=== PATIENT | male | born 1950 | race Caucasian/White ===

== ENCOUNTER 2022-08-18 11:57 | Emergency (ER) | payer MEDICARE, OTHER ==
[2022-08-18 12:02] VITALS: RESP 18; TEMP 97.6
[2022-08-18] MEDS ORDERED: SODIUM CHLORIDE 0.9% 500 ML 500 ML IV STA (12:19)
[2022-08-18] MEDS ORDERED: HYDROmorphone 1 MG/ML 1 ML SYRINGE IVP STA (12:19)
--- NOTE | 2022-08-18 12:22 | ED ---
General Adult HPI - General Chief complaint: Abdominal Pain Stated complaint: R Side Pain Time Seen by Provider: 08/18/22 12:04 Source: patient, RN notes reviewed, old records reviewed Mode of arrival: ambulatory Limitations: no limitations - History of Present Illness Initial comments: 72-year-old male presenting for reevaluation of right-sided abdominal pain. Patient states he's had pain for approximately 2 years. He denies vomiting. Denies fever. Denies chest pain. He's had a previous cholecystectomy and previous appendectomy. No hematuria or dysuria. - Related Data Home Medications Medication Instructions Recorded Confirmed Atorvastatin [Lipitor] 40 mg PO DAILY 08/16/22 08/16/22 Benzonatate [Tessalon Perle] 200 mg PO TID PRN 08/16/22 08/16/22 Dapagliflozin Propanediol [Farxiga] 5 mg PO DIRECTED 08/16/22 08/16/22 Furosemide [Lasix] 80 mg PO DAILY 08/16/22 08/16/22 Losartan [Cozaar] 50 mg PO DAILY 08/16/22 08/16/22 Metoprolol Succinate [Toprol XL] 50 mg PO DAILY 08/16/22 08/16/22 Nitroglycerin Sl Tabs [Nitrostat] 0.4 mg SL Q5M PRN 08/16/22 08/16/22 Pantoprazole [Protonix] 40 mg PO DAILY 08/16/22 08/16/22 amLODIPine [Norvasc] 10 mg PO DAILY 08/16/22 08/16/22 oxyCODONE-APAP 10-325MG [Percocet 1 tab PO Q4H PRN 08/16/22 08/16/22 10-325 mg] tadalafiL 10 mg PO DAILY PRN 08/16/22 08/16/22 Previous Rx's Medication Instructions Recorded Amoxic-Pot Clav 875-125Mg 1 tab PO BID 1 Days #20 tab 08/16/22 [Augmentin 875-125] Fluticasone Nasal Bend [Flonase 2 spr EA NOSTRIL DAILY #16 gm 08/16/22 Nasal Bend] Allergies Allergy/AdvReac Type Severity Reaction Status Date / Time cephalexin [From Keflex] AdvReac Nausea & Verified 08/16/22 19:38 Vomiting & Diarrhea Review of Systems ROS Statement: Those systems with pertinent positive or pertinent negative responses have been documented in the HPI. ROS Other: All systems not noted in ROS Statement are negative. Past Medical History Past Medical History: Diabetes Mellitus, Hyperlipidemia, Hypertension Additional Past Medical History / Comment(s): [place] Palsy History of Any Multi-Drug Resistant Organisms: None Reported Past Surgical History: Appendectomy, Cholecystectomy, Heart Catheterization With Stent Past Psychological History: No Psychological Hx Reported Smoking Status: Current every day smoker Past Alcohol Use History: None Reported Past Drug Use History: None Reported General Exam Limitations: no limitations General appearance: alert, in no apparent distress Head exam: Present: atraumatic, normocephalic Eye exam: Present: normal appearance, PERRL ENT exam: Present: normal exam Neck exam: Present: normal inspection. Absent: tenderness, meningismus Respiratory exam: Present: normal lung sounds bilaterally. Absent: respiratory distress, wheezes Cardiovascular Exam: Present: regular rate, normal rhythm GI/Abdominal exam: Present: tenderness. Absent: distended Extremities exam: Present: normal inspection, normal capillary refill Neurological exam: Present: alert, oriented X3, CN II-XII intact. Absent: motor sensory deficit Psychiatric exam: Present: normal affect, normal mood Skin exam: Present: warm, dry, intact. Absent: cyanosis, diaphoretic Course Vital Signs 08/18/22 08/18/22 11:58 13:08 Temperature 97.6 F Pulse Rate 70 53 L Respiratory 18 18 Rate Blood Pressure 210/109 181/97 O2 Sat by Pulse 93 L 98 Oximetry EKG Findings - EKG Comments: EKG Findings:: EKG: Sinus rhythm, left ventricular hypertrophy rate is 60, MI interval 144, QRS duration 126, QTC 463 T-wave inversion in the inferior leads and lateral precordial leads. No old for comparison - EKG Results: EKG: interpreted by ERMD Medical Decision Making - Medical Decision Making Was pt. sent in by a medical professional or institution (, PA, EMERGENCY RESPONSE COORDINATOR, urgent care, hospital, or [facility]...) When possible be specific @ -No Did you speak to anyone other than the patient for history (EMS, parent, family, police, friend...)? What history was obtained from this source @ -No Did you review nursing and triage notes (agree or disagree)? Why? @ -I reviewed and agree with nursing and triage notes Were old charts reviewed (outside hosp., previous admission, EMS record, old EKG, old radiological studies, urgent care reports/EKG's, [facility] records)? Report findings @ -Computed tomography scan from 2 days prior Differential Diagnosis (chest pain, altered mental status, abdominal pain women, abdominal pain men, vaginal bleeding, weakness, fever, dyspnea, syncope, headache, dizziness, GI bleed, back pain, seizure, CVA, palpatations, mental health, musculoskeletal)? @ -not applicable EKG interpreted by me (3pts min.). @ -As above X-rays interpreted by me (1pt min.). @ Nonobstructive, no free air CT interpreted by me (1pt min.). @ -None done U/S interpreted by me (1pt. min.). @ -None done What testing was considered but not performed or refused? (CT, X-rays, U/S, labs)? Why? @ -None What meds were considered but not given or refused? Why? @ -None Did you discuss the management of the patient with other professionals (professionals i.e. , PA, EMERGENCY RESPONSE COORDINATOR, lab, RT, psych nurse, social services director, handwriting expert, teacher, staff combat information center officer, shoe caser)? Give summary @ -No Was smoking cessation discussed for >3mins.? @ -No Was critical care preformed (if so, how long)? @ -No Were there social determinants of health that impacted care today? How? (Homelessness, low income, unemployed, alcoholism, drug addiction, transportation, low edu. Level, literacy, decrease access to med. care, correction, rehab)? @ -No Was there de-escalation of care discussed even if they declined (Discuss DNR or withdrawal of care, Hospice)? DNR status @ -No What co-morbidities impacted this encounter? (DM, HTN, Smoking, COPD, CAD, Cancer, CVA, ARF, Chemo, Hep., AIDS, mental health diagnosis, sleep apnea, morbid obesity)? @ Retention, diabetes, chronic pain Was patient admitted / discharged? Hospital course, mention meds given and route, prescriptions, significant lab abnormalities, going to OR and other pertinent info. @ 72-year-old male with 2 years of right-sided abdominal pain. Patient has been seen by multiple providers including surgery. He states the pain is unchanged without new features today. He is taking Percocet for pain at home. He has evaluation and computed tomography scan in the emergency department 2 days prior which showed chronic findings without any acute explanation of his pain. I did reevaluate the patient after initial medication he states he was somewhat improved. I did confirm that this pain is been present for 2 years. He has a nonobstructive x-ray, essentially normal laboratory testing including CBC, CMP, urinalysis. He states he has pain medication at home. He is in structed to follow-up with his primary care physician and return with worsening or changing symptoms. Undiagnosed new problem with uncertain prognosis? @ -No Drug Therapy requiring intensive monitoring for toxicity (Heparin, Nitro, Insulin, Cardizem)? @ -No Were any procedures done? @ -No Diagnosis/symptom? @ Abdominal pain Acute, or Chronic, or Acute on Chronic? @Chronic Uncomplicated (without systemic symptoms) or Complicated (systemic symptoms)? @ Complicated Side effects of treatment? @ -No Exacerbation, Progression, or Severe Exacerbation? @ -No Poses a threat to life or bodily function? How? (Chest pain, [place], [place], pneumonia, PE, COPD, DKA, ARF, appy, cholecystitis, CVA, Diverticulitis, Homicidal, Suicidal, threat to staff... and all critical care pts) @ -No - Lab Data Result diagrams: 08/18/22 12:53 08/18/22 12:53 Lab Results 08/18/22 08/18/22 08/18/22 Range/Units 12:53 12:53 12:53 WBC 7.9 (3.8-10.6) k/uL RBC 5.11 (4.30-5.90) m/uL Hgb 15.0 (13.0-17.5) gm/dL Hct 45.0 (39.0-53.0) % MCV 88.1 (80.0-100.0) fL MCH 29.4 (25.0-35.0) pg MCHC 33.4 (31.0-37.0) g/dL RDW 14.2 (11.5-15.5) % Plt Count 165 (150-450) k/uL MPV 8.4 Neutrophils % 62 % Lymphocytes % 26 % Monocytes % 9 % Eosinophils % 1 % Basophils % 0 % Neutrophils # 4.9 (1.3-7.7) k/uL Lymphocytes # 2.1 (1.0-4.8) k/uL Monocytes # 0.7 (0-1.0) k/uL Eosinophils # 0.1 (0-0.7) k/uL Basophils # 0.0 (0-0.2) k/uL PT 10.9 (9.0-12.0) sec INR 1.0 (<1.2) APTT 22.3 (22.0-30.0) sec Sodium (137-145) mmol/L Potassium (3.5-5.1) mmol/L Chloride (98-107) mmol/L Carbon Dioxide (22-30) mmol/L Anion Gap mmol/L BUN (9-20) mg/dL Creatinine (0.66-1.25) mg/dL Est GFR (CKD-EPI)AfAm (>60 ml/min/1.73 sqM) Est GFR (CKD-EPI)NonAf (>60 ml/min/1.73 sqM) Glucose (74-99) mg/dL Plasma Lactic Acid Tomás (0.7-2.0) mmol/L Calcium (8.4-10.2) mg/dL Total Bilirubin (0.2-1.3) mg/dL AST (17-59) U/L ALT (4-49) U/L Alkaline Phosphatase (38-126) U/L Total Protein (6.3-8.2) g/dL Albumin (3.5-5.0) g/dL Amylase (30-110) U/L Lipase (23-300) U/L Urine Color Yellow Urine Appearance Clear (Clear) Urine pH 6.5 (5.0-8.0) Ur Specific [place] 1.013 (1.001-1.035) Urine Protein 1+ H (Negative) Urine Glucose (UA) 2+ H (Negative) Urine Ketones Negative (Negative) Urine Blood Negative (Negative) Urine Nitrite Negative (Negative) Urine Bilirubin Negative (Negative) Urine Urobilinogen <2.0 (<2.0) mg/dL Ur Leukocyte Esterase Negative (Negative) Urine RBC <1 (0-5) /hpf Urine WBC <1 (0-5) /hpf Urine Mucus Rare H (None) /hpf 08/18/22 08/18/22 Range/Units 12:53 12:53 WBC (3.8-10.6) k/uL RBC (4.30-5.90) m/uL Hgb (13.0-17.5) gm/dL Hct (39.0-53.0) % MCV (80.0-100.0) fL MCH (25.0-35.0) pg MCHC (31.0-37.0) g/dL RDW (11.5-15.5) % Plt Count (150-450) k/uL MPV Neutrophils % % Lymphocytes % % Monocytes % % Eosinophils % % Basophils % % Neutrophils # (1.3-7.7) k/uL Lymphocytes # (1.0-4.8) k/uL Monocytes # (0-1.0) k/uL Eosinophils # (0-0.7) k/uL Basophils # (0-0.2) k/uL PT (9.0-12.0) sec INR (<1.2) APTT (22.0-30.0) sec Sodium 139 (137-145) mmol/L Potassium 3.4 L (3.5-5.1) mmol/L Chloride 103 (98-107) mmol/L Carbon Dioxide 25 (22-30) mmol/L Anion Gap 11 mmol/L BUN 23 H (9-20) mg/dL Creatinine 1.16 (0.66-1.25) mg/dL Est GFR (CKD-EPI)AfAm 72 (>60 ml/min/1.73 sqM) Est GFR (CKD-EPI)NonAf 63 (>60 ml/min/1.73 sqM) Glucose 137 H (74-99) mg/dL Plasma Lactic Acid Tomás 1.3 (0.7-2.0) mmol/L Calcium 9.0 (8.4-10.2) mg/dL Total Bilirubin 1.0 (0.2-1.3) mg/dL AST 32 (17-59) U/L ALT 35 (4-49) U/L Alkaline Phosphatase 98 (38-126) U/L Total Protein 7.0 (6.3-8.2) g/dL Albumin 4.2 (3.5-5.0) g/dL Amylase 33 (30-110) U/L Lipase 47 (23-300) U/L Urine Color Urine Appearance (Clear) Urine pH (5.0-8.0) Ur Specific [place] (1.001-1.035) Urine Protein (Negative) Urine Glucose (UA) (Negative) Urine Ketones (Negative) Urine Blood (Negative) Urine Nitrite (Negative) Urine Bilirubin (Negative) Urine Urobilinogen (<2.0) mg/dL Ur Leukocyte Esterase (Negative) Urine RBC (0-5) /hpf Urine WBC (0-5) /hpf Urine Mucus (None) /hpf Disposition Clinical Impression: Abdominal pain Disposition: HOME SELF-CARE Condition: Fair Instructions (If sedation given, give patient instructions): Abdominal Pain (ED) Is patient prescribed a controlled substance at d/c from ED?: No Referrals: Matt Santoyo DO [Primary Care Provider] - 1-2 days Time of Disposition: 15:14
--- NOTE | 2022-08-18 12:47 | XR ---
EXAMINATION TYPE: XR KUB DATE OF EXAM: 08/18/2022 12:37 PM INDICATION: Patient age:Male; 72 years old; Reason for study: abdominal pain; COMPARISON: 08/16/2022 TECHNIQUE: One radiographic view of the abdomen was obtained. FINDINGS: The bowel gas pattern is nonspecific without dilated loops of small or large bowel. There i s no evidence for organomegaly or pneumoperitoneum. The osseous structures are intact. No abnormal calcifications are present. Fecal material and gas are demonstrated throughout the colon and rectum. Right upper quadrant cholecystectomy clips. IMPRESSION: Nonspecific bowel gas pattern without radiographic evidence for acute process.
[2022-08-18 13:10] VITALS: BP 181/97; PULSE 53
[2022-08-18 13:16] LABS: Basophils % (A) 0 %; Eosinophils # (A) 0.1 k/uL (0-0.7); Eosinophils % (A) 1 %; Lymphocytes # (A) 2.1 k/uL (1.0-4.8); Lymphocytes % (A) 26 %; MCH 29.4 pg (25.0-35.0); MCHC 33.4 g/dL (31.0-37.0); MCV 88.1 fL (80.0-100.0); Mean Platelet Volume 8.4; Monocytes # (A) 0.7 k/uL (0-1.0); Monocytes % (A) 9 %; Neutrophils # (A) 4.9 k/uL (1.3-7.7); Neutrophils % (A) 62 %; Platelet Count 165 k/uL (150-450); RBC 5.11 m/uL (4.30-5.90); RDW 14.2 % (11.5-15.5); WBC 7.9 k/uL (3.8-10.6)
[2022-08-18 13:33] LABS: Albumin 4.2 g/dL (3.5-5.0); Potassium 3.4 mmol/L (3.5-5.1)
[2022-08-18 13:39] LABS: Partial Thromboplastin Time 22.3 sec (22.0-30.0); Prothrombin Time 10.9 sec (9.0-12.0)
[2022-08-18 14:58] LABS: Appearance,Urine Clear (Clear); Bilirubin,Urine Negative (Negative); Blood,Urine Negative (Negative); Color,Urine Yellow; Glucose,Urine (UA) 2+ (Negative); Ketones,Urine Negative (Negative); Leukocyte Esterase,Urine Negative (Negative); Mucus,Urine Rare /hpf; Nitrite,Urine Negative (Negative); PH, Urine 6.5 (5.0-8.0); Protein,Urine 1+ (Negative); RBC,Urine <1 /hpf (0-5); Specific Gravity,Urine 1.013 (1.001-1.035); Urobilinogen,Urine <2.0 mg/dL (<2.0); WBC,Urine <1 /hpf (0-5)
== END 2022-08-18 15:40 | disposition home or self-care (01) ==
LOC: EC 11:57
DX: R10.9 Unspecified abdominal pain (principal); I10 Essential (primary) hypertension; E11.9 Type 2 diabetes mellitus without complications; E78.5 Hyperlipidemia, unspecified; F17.200 Nicotine dependence, unspecified, uncomplicated; Z79.84 Long term (current) use of oral hypoglycemic drugs; Z79.899 Other long term (current) drug therapy; Z88.1 Allergy status to other antibiotic agents; Z90.49 Acquired absence of other specified parts of digestive tract
CPT/HCPCS: 36415; 93005; 80053; 82150; 83605; 83690; 85025; 85610; 85730; 81001; 74018; 99284; 96374; 96361; J1170

== ENCOUNTER 2024-09-23 11:53 | Inpatient (IN) | payer MEDICARE ==
[2024-09-23 12:32] LABS: Basophils # (A) 0.04 10*3/uL (0.00-0.10); Basophils % (A) 0.2 %; Eosinophils # (A) 0.03 10*3/uL (0.04-0.35); Eosinophils % (A) 0.2 %; HCT 40.8 % (39.6-50.0); HGB 13.4 g/dL (13.0-17.0); Lymphocytes # (A) 1.32 10*3/uL (0.90-5.00); MCH 28.1 pg (27.0-32.0); MCHC 32.8 g/dL (32.0-37.0); MCV 85.5 fL (80.0-97.0); Mean Platelet Volume 10.7 fL (9.5-12.2); Monocytes # (A) 2.05 10*3/uL (0.20-1.00); Monocytes % (A) 12.5 %; Neutrophils % (A) 77.2 %; Platelet Count 327 10*3/uL (140-440); RBC 4.77 10*6/uL (4.40-5.60); RDW 15.2 % (11.5-14.5); WBC 16.45 10*3/uL (4.50-10.00)
[2024-09-23 12:44] LABS: AST 21 U/L (17-59); African American GFR (CKD) 38 (>60 ml/min/1.73 sqM); Albumin 3.2 g/dL (3.5-5.0); Alkaline Phosphatase 98 U/L (38-126); Amylase 38 U/L (30-110); Anion Gap 16 mmol/L; Blood Urea Nitrogen 54 mg/dL (9-20); Calcium 9.1 mg/dL (8.4-10.2); Carbon Dioxide 25 mmol/L (22-30); Chloride 93 mmol/L (98-107); Glucose 161 mg/dL (74-99); Lipase 89 U/L (23-300); Non-African American GFR(CKD) 33 (>60 ml/min/1.73 sqM); Potassium 4.3 mmol/L (3.5-5.1); Sodium 134 mmol/L (137-145)
[2024-09-23 12:53] LABS: ALT 17 U/L (4-49)
--- NOTE | 2024-09-23 13:10 | ED ---
General Adult HPI - General Chief complaint: Abdominal Pain Stated complaint: Vomiting Time Seen by Provider: 09/23/24 12:10 Source: patient, family, RN notes reviewed, old records reviewed Mode of arrival: ambulatory Limitations: no limitations - History of Present Illness Initial comments: This is a 74-year-old male who presents to the emergency department the past medical history significant for diabetes hypertension multiple cardiac stents and continues to smoke cigarettes. Patient comes in today because he had a weeklong history of epigastric abdominal pain with vomiting. Patient states he is also been a little dizzy at times. Patient denies any fever chills per patient has any diarrhea. Patient denies any chest pain difficulty breathing or shortness of breath. - Related Data Home Medications Medication Instructions Recorded Confirmed Atorvastatin [Lipitor] 40 mg PO DAILY 08/16/22 09/23/24 Furosemide [Lasix] 80 mg PO DAILY 08/16/22 09/23/24 Losartan [Cozaar] 50 mg PO DAILY 08/16/22 09/23/24 Metoprolol Succinate [Toprol XL] 50 mg PO DAILY 08/16/22 09/23/24 Nitroglycerin Sl Tabs [Nitrostat] 0.4 mg SL Q5M PRN 08/16/22 09/23/24 Pantoprazole [Protonix] 40 mg PO DAILY 08/16/22 09/23/24 amLODIPine [Norvasc] 10 mg PO DAILY 08/16/22 09/23/24 oxyCODONE-APAP 10-325MG [Percocet 1 tab PO Q4H 08/16/22 09/23/24 10-325 mg] Aspirin EC [Ecotrin Low Dose] 81 mg PO DAILY 09/23/24 09/23/24 Clopidogrel [Plavix] 75 mg PO DAILY 09/23/24 09/23/24 Dapagliflozin Propanediol [Farxiga] 10 mg PO DAILY 09/23/24 09/23/24 Ergocalciferol (Vitamin D2) 1,250 mcg PO TH 09/23/24 09/23/24 [Drisdol (GEQ) 1,250 MCG (50,000 IU)] Isosorbide Mononitrate ER [Imdur] 30 mg PO DAILY 09/23/24 09/23/24 Spironolactone [Aldactone] 25 mg PO DAILY 09/23/24 09/23/24 metFORMIN HCL ER [Glucophage XR] 500 mg PO DAILY 09/23/24 09/23/24 Allergies Allergy/AdvReac Type Severity Reaction Status Date / Time cephalexin [From Keflex] AdvReac Nausea & Verified 09/23/24 16:24 Vomiting & Diarrhea Review of Systems ROS Statement: Those systems with pertinent positive or pertinent negative responses have been documented in the HPI. ROS Other: All systems not noted in ROS Statement are negative. Past Medical History Past Medical History: Coronary Artery Disease (CAD), Diabetes Mellitus, Hyperlipidemia, Hypertension Additional Past Medical History / Comment(s): [place] Palsy History of Any Multi-Drug Resistant Organisms: None Reported Past Surgical History: Appendectomy, Cholecystectomy, Heart Catheterization With Stent Past Psychological History: No Psychological Hx Reported Smoking Status: Current every day smoker Past Alcohol Use History: None Reported Past Drug Use History: None Reported General Exam - General Exam Comments Initial Comments: GENERAL: Patient is well-developed and well-nourished. Patient is nontoxic and well- hydrated and is in moderate distress. ENT: Neck is soft and supple. No significant lymphadenopathy is noted. Oropharynx is clear. Moist mucous membranes. Neck has full range of motion without eliciting any pain. EYES: The sclera were anicteric and conjunctiva were pink and moist. Extraocular movements were intact and pupils were equal round and reactive to light. Eyelids were unremarkable. PULMONARY: Unlabored respirations. Good breath sounds bilaterally. No audible rales rhonchi or wheezing was noted. CARDIOVASCULAR: There is a regular rate and rhythm without any murmurs gallops or rubs. ABDOMEN: Patient had left upper quadrant abdominal tenderness as well as epigastric tenderness SKIN: Skin is clear with no lesions or rashes and otherwise unremarkable. NEUROLOGIC: Patient is alert and oriented x3. Cranial nerves II through XII are grossly intact. Motor and sensory are also intact. Normal speech, volume and content. Symmetrical smile. MUSCULOSKELETAL: Normal extremities with adequate strength and full range of motion. No lower extremity swelling or edema. No calf tenderness. LYMPHATICS: No significant lymphadenopathy is noted PSYCHIATRIC: Normal psychiatric evaluation. Limitations: no limitations Course Vital Signs 09/23/24 09/23/24 09/23/24 12:01 14:45 17:14 Temperature 97.7 F Pulse Rate 86 71 73 Respiratory 20 18 18 Rate Blood Pressure 144/83 150/95 141/90 O2 Sat by Pulse 97 97 97 Oximetry 09/23/24 17:30 Temperature 98 F Pulse Rate 69 Respiratory 16 Rate Blood Pressure 137/87 O2 Sat by Pulse 97 Oximetry Medical Decision Making - Medical Decision Making EKG is interpreted by myself EKG shows sinus rhythm at 83 bpm ME 131 QRS 120 QT interval is 401 QTc is 441. EKG is compared to previous EKG and there is no significant changes Was pt. sent in by a medical professional or institution ([facility], [facility], urgent care, hospital, or alf...) When possible be specific @ -No Did you speak to anyone other than the patient for history (EMS, parent, family, police, friend...)? What history was obtained from this source @ -No Did you review nursing and triage notes (agree or disagree)? Why? @ -I reviewed and agree with nursing and triage notes Were old charts reviewed (outside hosp., previous admission, EMS record, old EKG, old radiological studies, urgent care reports/EKG's, alf records)? Report findings @ -No old charts were reviewed Differential Diagnosis? @ -Differential Abdominal Pain Men: Appendicitis, cholecystitis, diverticulosis, ischemic bowel, pancreatitis, hepatitis, UTI, gastroenteritis, AAA, incarcerated hernia, bowel obstruction, constipation, inflammatory bowel, hepatitis, peptic ulcer disease, splenic infarction, perforated viscus, testicular torsion, this is not meant to be an all-inclusive list EKG interpreted by me (3pts min.). @ -As above X-rays interpreted by me (1pt min.). @ -None done CT interpreted by me (1pt min.). @ -CT scan shows multiple hypolesions in the liver and surrounding area indicative of possible metastatic disease U/S interpreted by me (1pt. min.). @ -None done What testing was considered but not performed or refused? (CT, X-rays, U/S, labs)? Why? @ -None What meds were considered but not given or refused? Why? @ -None Did you discuss the management of the patient with other professionals (professionals i.e. [facility], [facility], lab, RT, psych nurse, social studies teacher, master rigger, teacher, hearing officer, case worker)? Give summary @ -I spoke with [facility] physicians they agreed to admit the patient admit the patient reported bitting orders Was smoking cessation discussed for >3mins.? @ -No Was critical care preformed (if so, how long)? @ -No Were there social determinants of health that impacted care today? How? (Homelessness, low income, unemployed, alcoholism, drug addiction, transportation, low edu. Level, literacy, decrease access to med. care, nursing home, rehab)? @ -No Was there de-escalation of care discussed even if they declined (Discuss DNR or withdrawal of care, Hospice)? DNR status @ -No What co-morbidities impacted this encounter? (DM, HTN, Smoking, COPD, CAD, Cancer, CVA, ARF, Chemo, Hep., AIDS, mental health diagnosis, sleep apnea, morbid obesity)? @ -None Was patient admitted / discharged? Hospital course, mention meds given and route, prescriptions, significant lab abnormalities, going to OR and other pertinent info. @ -Patient was given Dilaudid and Zofran for pain and nausea and it helped considerably. Patient's CAT scan was concerning for metastatic disease to the liver and surrounding tissues. Patient will be admitted with a consult to oncology. Patient does not appear to be septic and the lactic acid is probably secondary to dehydration because he is not been eating and has been vomiting and the fact that he has got significant liver disease. Undiagnosed new problem with uncertain prognosis? @ -No Drug Therapy requiring intensive monitoring for toxicity (Heparin, Nitro, Insulin, Cardizem)? @ -No Were any procedures done? @ -No Diagnosis/symptom? @ -Liver masses Acute, or Chronic, or Acute on Chronic? @ -Acute on chronic Uncomplicated (without systemic symptoms) or Complicated (systemic symptoms)? @ -Complicated Side effects of treatment? @ -No Exacerbation, Progression, or Severe Exacerbation? @ -No Poses a threat to life or bodily function? How? (Chest pain, [place], [place], pneumonia, PE, COPD, DKA, ARF, appy, cholecystitis, CVA, Diverticulitis, Homicidal, Suicidal, threat to staff... and all critical care pts) @ -Yes this could be metastatic disease and cause further morbidity or mortality - Lab Data Result diagrams: 09/23/24 13:21 09/23/24 13:21 Lab Results 09/23/24 09/23/24 09/23/24 Range/Units 12:22 12:22 13:21 WBC 16.45 H 16.47 H (4.50-10.00) 10*3/uL RBC 4.77 4.66 (4.40-5.60) 10*6/uL Hgb 13.4 13.0 (13.0-17.0) g/dL Hct 40.8 39.8 (39.6-50.0) % MCV 85.5 85.4 (80.0-97.0) fL MCH 28.1 27.9 (27.0-32.0) pg MCHC 32.8 32.7 (32.0-37.0) g/dL Plt Count 327 301 (140-440) 10*3/uL MPV 10.7 11.0 (9.5-12.2) fL Immature Gran % (Auto) 1.9 1.3 % Neutrophils % 77.2 78.1 % Lymphocytes % 8.0 8.1 % Monocytes % 12.5 12.1 % Eosinophils % 0.2 0.2 % Basophils % 0.2 0.2 % Immature Gran # 0.31 H 0.22 H (0.00-0.04) 10*3/uL Neutrophils # 12.70 H 12.87 H (1.80-7.70) 10*3/uL Lymphocytes # 1.32 1.33 (0.90-5.00) 10*3/uL Monocytes # 2.05 H 1.99 H (0.20-1.00) 10*3/uL Eosinophils # 0.03 L 0.03 L (0.04-0.35) 10*3/uL Basophils # 0.04 0.03 (0.00-0.10) 10*3/uL Sodium 134 L (137-145) mmol/L Potassium 4.3 (3.5-5.1) mmol/L Chloride 93 L (98-107) mmol/L Carbon Dioxide 25 (22-30) mmol/L Anion Gap 16 mmol/L BUN 54 H (9-20) mg/dL Creatinine 1.94 H (0.66-1.25) mg/dL Est GFR (CKD-EPI)AfAm 38 (>60 ml/min/1.73 sqM) Est GFR (CKD-EPI)NonAf 33 (>60 ml/min/1.73 sqM) Glucose 161 H (74-99) mg/dL Lactic Ac Sepsis Rflx Plasma Lactic Acid Tomás (0.7-2.0) mmol/L Calcium 9.1 (8.4-10.2) mg/dL Total Bilirubin 2.0 H (0.2-1.3) mg/dL AST 21 (17-59) U/L ALT 17 (4-49) U/L Alkaline Phosphatase 98 (38-126) U/L Total Protein 6.0 L (6.3-8.2) g/dL Albumin 3.2 L (3.5-5.0) g/dL Amylase 38 (30-110) U/L Lipase 89 (23-300) U/L Urine Color Urine Appearance (Clear) Urine pH (5.0-8.0) Ur Specific [place] (1.001-1.035) Urine Protein (Negative) Urine Glucose (UA) (Negative) Urine Ketones (Negative) Urine Blood (Negative) Urine Nitrite (Negative) Urine Bilirubin (Negative) Urine Urobilinogen (<2.0) mg/dL Ur Leukocyte Esterase (Negative) Urine RBC (0-5) /hpf Urine WBC (0-5) /hpf Hyaline Casts (0-2) /lpf Urine Mucus (None) /hpf 09/23/24 09/23/24 09/23/24 Range/Units 13:21 13:21 14:04 WBC (4.50-10.00) 10*3/uL RBC (4.40-5.60) 10*6/uL Hgb (13.0-17.0) g/dL Hct (39.6-50.0) % MCV (80.0-97.0) fL MCH (27.0-32.0) pg MCHC (32.0-37.0) g/dL Plt Count (140-440) 10*3/uL MPV (9.5-12.2) fL Immature Gran % (Auto) % Neutrophils % % Lymphocytes % % Monocytes % % Eosinophils % % Basophils % % Immature Gran # (0.00-0.04) 10*3/uL Neutrophils # (1.80-7.70) 10*3/uL Lymphocytes # (0.90-5.00) 10*3/uL Monocytes # (0.20-1.00) 10*3/uL Eosinophils # (0.04-0.35) 10*3/uL Basophils # (0.00-0.10) 10*3/uL Sodium 132 L (137-145) mmol/L Potassium 5.5 H (3.5-5.1) mmol/L Chloride 94 L (98-107) mmol/L Carbon Dioxide 24 (22-30) mmol/L Anion Gap 14 mmol/L BUN 56 H (9-20) mg/dL Creatinine 1.83 H (0.66-1.25) mg/dL Est GFR (CKD-EPI)AfAm 41 (>60 ml/min/1.73 sqM) Est GFR (CKD-EPI)NonAf 35 (>60 ml/min/1.73 sqM) Glucose 160 H (74-99) mg/dL Lactic Ac Sepsis Rflx Y Plasma Lactic Acid Tomás 5.0 H* (0.7-2.0) mmol/L Calcium 9.0 (8.4-10.2) mg/dL Total Bilirubin 2.3 H (0.2-1.3) mg/dL AST 36 (17-59) U/L ALT 12 (4-49) U/L Alkaline Phosphatase 72 (38-126) U/L Total Protein 6.2 L (6.3-8.2) g/dL Albumin 3.2 L (3.5-5.0) g/dL Amylase 35 (30-110) U/L Lipase 82 (23-300) U/L Urine Color Urine Appearance (Clear) Urine pH (5.0-8.0) Ur Specific [place] (1.001-1.035) Urine Protein (Negative) Urine Glucose (UA) (Negative) Urine Ketones (Negative) Urine Blood (Negative) Urine Nitrite (Negative) Urine Bilirubin (Negative) Urine Urobilinogen (<2.0) mg/dL Ur Leukocyte Esterase (Negative) Urine RBC (0-5) /hpf Urine WBC (0-5) /hpf Hyaline Casts (0-2) /lpf Urine Mucus (None) /hpf 09/23/24 Range/Units 14:55 WBC (4.50-10.00) 10*3/uL RBC (4.40-5.60) 10*6/uL Hgb (13.0-17.0) g/dL Hct (39.6-50.0) % MCV (80.0-97.0) fL MCH (27.0-32.0) pg MCHC (32.0-37.0) g/dL Plt Count (140-440) 10*3/uL MPV (9.5-12.2) fL Immature Gran % (Auto) % Neutrophils % % Lymphocytes % % Monocytes % % Eosinophils % % Basophils % % Immature Gran # (0.00-0.04) 10*3/uL Neutrophils # (1.80-7.70) 10*3/uL Lymphocytes # (0.90-5.00) 10*3/uL Monocytes # (0.20-1.00) 10*3/uL Eosinophils # (0.04-0.35) 10*3/uL Basophils # (0.00-0.10) 10*3/uL Sodium (137-145) mmol/L Potassium (3.5-5.1) mmol/L Chloride (98-107) mmol/L Carbon Dioxide (22-30) mmol/L Anion Gap mmol/L BUN (9-20) mg/dL Creatinine (0.66-1.25) mg/dL Est GFR (CKD-EPI)AfAm (>60 ml/min/1.73 sqM) Est GFR (CKD-EPI)NonAf (>60 ml/min/1.73 sqM) Glucose (74-99) mg/dL Lactic Ac Sepsis Rflx Plasma Lactic Acid Tomás (0.7-2.0) mmol/L Calcium (8.4-10.2) mg/dL Total Bilirubin (0.2-1.3) mg/dL AST (17-59) U/L ALT (4-49) U/L Alkaline Phosphatase (38-126) U/L Total Protein (6.3-8.2) g/dL Albumin (3.5-5.0) g/dL Amylase (30-110) U/L Lipase (23-300) U/L Urine Color Yellow Urine Appearance Cloudy (Clear) Urine pH 5.0 (5.0-8.0) Ur Specific [place] 1.036 H (1.001-1.035) Urine Protein 1+ H (Negative) Urine Glucose (UA) Negative (Negative) Urine Ketones Negative (Negative) Urine Blood Negative (Negative) Urine Nitrite Negative (Negative) Urine Bilirubin Negative (Negative) Urine Urobilinogen 3.0 (<2.0) mg/dL Ur Leukocyte Esterase Negative (Negative) Urine RBC 1 (0-5) /hpf Urine WBC 1 (0-5) /hpf Hyaline Casts 4 H (0-2) /lpf Urine Mucus Rare H (None) /hpf Disposition Clinical Impression: Liver masses Disposition: ADMITTED IP TO THIS [facility] Time of Disposition: 15:30
[2024-09-23] MEDS: ONDANSETRON 4 MG/2 ML VIAL IVP STA (13:22)
[2024-09-23 13:25] LABS: Basophils # (A) 0.03 10*3/uL (0.00-0.10); Basophils % (A) 0.2 %; Eosinophils # (A) 0.03 10*3/uL (0.04-0.35); Eosinophils % (A) 0.2 %; HCT 39.8 % (39.6-50.0); Lymphocytes # (A) 1.33 10*3/uL (0.90-5.00); Lymphocytes % (A) 8.1 %; MCH 27.9 pg (27.0-32.0); MCHC 32.7 g/dL (32.0-37.0); MCV 85.4 fL (80.0-97.0); Monocytes # (A) 1.99 10*3/uL (0.20-1.00); Monocytes % (A) 12.1 %; Neutrophils # (A) 12.87 10*3/uL (1.80-7.70); Neutrophils % (A) 78.1 %; Platelet Count 301 10*3/uL (140-440); RBC 4.66 10*6/uL (4.40-5.60); RDW 15.1 % (11.5-14.5); WBC 16.47 10*3/uL (4.50-10.00)
[2024-09-23] MEDS: HYDROmorphone 0.5 MG/0.5 ML SYRINGE IVP STA (13:29)
[2024-09-23] MEDS: LACTATED RINGERS 1,000 ML IV ONE (13:29)
[2024-09-23 13:48] LABS: ALT 12 U/L (4-49); African American GFR (CKD) 41 (>60 ml/min/1.73 sqM); Albumin 3.2 g/dL (3.5-5.0); Amylase 35 U/L (30-110); Anion Gap 14 mmol/L; Blood Urea Nitrogen 56 mg/dL (9-20); Carbon Dioxide 24 mmol/L (22-30); Chloride 94 mmol/L (98-107); Glucose 160 mg/dL (74-99); Lipase 82 U/L (23-300); Non-African American GFR(CKD) 35 (>60 ml/min/1.73 sqM); Sodium 132 mmol/L (137-145); Total Bilirubin 2.3 mg/dL (0.2-1.3); Total Protein 6.2 g/dL (6.3-8.2)
[2024-09-23 14:02] LABS: Potassium 5.5 mmol/L (3.5-5.1)
[2024-09-23 14:03] LABS: AST 36 U/L (17-59); Alkaline Phosphatase 72 U/L (38-126)
--- NOTE | 2024-09-23 14:48 | CT ---
EXAMINATION TYPE: CT abdomen pelvis w con DATE OF EXAM: 09/23/2024 COMPARISON: 08/16/2022 CLINICAL INDICATION: Male, 74 years old with history of abdominal pain; PHH, umbilical up to under ri bs abdominal pain, N/V x1 week TECHNIQUE: Performed without Oral Contrast and with IV Contrast, patient injected with 70ml mL of Isovue 300. CT DLP: 2166.[address] CTDI: mGy Automated exposure control for dose reduction was used. FINDINGS: There is mild pleural-parenchymal scarring in the left lung base. There is surgical absence of gallbladder. There is no biliary ductal dilatation. Cirrhotic liver is again demonstrated.. There is no focal mass or gross enlargement of the pancreas, spleen or adrenal glands. There is been interval development of multiple masses within the gastrohepatic ligament, mesentery in the upper abdomen and within the omentum. There is suggestion of marked enlargement secondary to mul tiple hypodense masses within the caudate lobe of the liver. There is new small to moderate ascites. There is no solid renal mass or hydronephrosis and there is homogeneous contrast enhancement of the r enal parenchyma. The caliber the abdominal aorta is normal is no retroperitoneal adenopathy or hemorr haseeb. The bowel loops are normal in caliber and there is no evidence of dilatation or obstruction. No infla mmatory changes are identified in the bowel wall or mesentery. No pelvic mass, free fluid, abscess or adenopathy. There is moderate prostatic hypertrophy. There is a stable destructive lesion involving the posterior aspect of L5 and the superior aspect of L3. There is a stable sclerotic lesion in S1. IMPRESSION: 1. Interval development of multiple hypodense masses of the caudate lobe of the liver with marked mas ses scattered within the gastrohepatic ligament, omentum and upper mesentery. Findings are suspicious for hepatic neoplasm with marked metastatic disease. MRI of the liver would be useful for further ev aluation 2. Stable changes of a cirrhotic liver. 3. Interval development of moderate ascites. 4. Moderate prostatic hypertrophy. 5. Stable osseous lesions involving L3 and L5 and S1. Possible metastatic disease, bone scan might be useful for further evaluation. No significant abnormality seen. [facility], , 09/23/2024 2:45 PM
[2024-09-23 15:11] LABS: Appearance,Urine Cloudy (Clear); Bilirubin,Urine Negative (Negative); Blood,Urine Negative (Negative); Color,Urine Yellow; Glucose,Urine (UA) Negative (Negative); Hyaline Casts,Urine 4 /lpf (0-2); Ketones,Urine Negative (Negative); Leukocyte Esterase,Urine Negative (Negative); Mucus,Urine Rare /hpf; Nitrite,Urine Negative (Negative); Protein,Urine 1+ (Negative); RBC,Urine 1 /hpf (0-5); Specific Gravity,Urine 1.036 (1.001-1.035); WBC,Urine 1 /hpf (0-5)
[2024-09-23] MEDS ORDERED: DEXTROSE 50% SYRINGE 50 ML IVP PRN ×2 (16:54)
[2024-09-23] MEDS: SODIUM CHLORIDE 0.9% 1,000 ML IV SCH (17:18)
[2024-09-23 17:19] LABS: Glucose,Whole Blood 138 mg/dL (70-110)
[2024-09-23 18:09] LABS: Bilirubin,Unconjugated 0.9 mg/dL (0.0-1.1); Total Bilirubin 1.7 mg/dL (0.2-1.3)
[2024-09-23] MEDS: INSULIN LISPRO (HumaLOG) 100 UNIT/ML 10 mL VL SQ SCH (18:12)
--- NOTE | 2024-09-23 18:15 | P.HPIM ---
History of Present Illness H&P Date: 09/23/24 Chief Complaint: Abdominal pain Patient is a 74 year old male with Coronary artery disease s/p stent placement, diabetes mellitus, hyperlipidemia, hypertension, tobacco dependence presented to the ED with abdominal pain. Patient reports helping his friend with some patio work 2 weeks ago when he started having hot flashes. He then had abdominal pain associated with vomiting. 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 He mention he lost 20 pounds in the last week and a half. He mentions that he usually drinks a lot of water but lately has only had a glass of water a day and has had decreased appetite. He also has soft stools, but denies diarrhea. Additionally, he reports having a low stream of urine that he attributes to his BPH.He mentions following up with construction driver and agency operator in the past but hasn't seen them in quite some time lately. He did have an MRI of the abdomen a few years ago at [facility] in [place]. He has also had some surgery for twisted bowel years ago. He is a current everyday smoker, smoking since he was 14. He was drinking alcohol in the past but quit when he was 49. Moreover he reports having a headache and eye pain, but mentions that its similar to the migraines he used to have in the past. Abdomen pelvis CT done in 2022 shows no evidence for acute process, hepatic cirrhosis evidence of portal hypertension splenomegaly, scattered hepatic hypodense lesions. Appearance of the attending indicates a 500, prostatomegaly, chronic diverticulosis, bilateral fat-containing inguinal hernias. Denies fever, chills, shortness of breath, cough, chest pain, palpitations, hematuria, dysuria, hematochezia, melena, slurred speech, numbness, tingling, lightheadedness, blurred vision, double vision. ED documentation reviewed. In the ED patient was treated with Dilaudid, Zofran, lactated Ringer. Vitals on admission T 97.7 F, MD 86 bpm, RR 20, BP 144/83, SpO2 97% on room air EKG independently interpreted as sinus rhythm; T wave inversion in lead II, 3, aVF, V4-V6; left ventricular hypertrophy, rate 83 bpm, QTc 441 ms. Unchanged from 2 years ago Abdomen/pelvis CT shows interval development of multiple hypodense masses of the caudate lobe of the liver with lobular masses scattered within the gastrohepatic ligament, omentum and upper mesentery, Findings suspicious for hepatic neoplasm with marked metastatic disease. Stable changes of cirrhotic liver. Interval development of moderate ascites. Moderate prostatic hypertrophy. Stable osseous lesions involving L3 and L5 and S1, possibly metastatic disease. Labs on admission show WBC 16.47, hemoglobin 13, sodium 132, potassium 5.5, BUN 56, creatinine 1.83, glucose 160, lactic acid 5, total bilirubin 2.3 UA shows specific gravity 1.036, 1+ protein, 4 hyaline casts, rare mucus Review of systems: Pertinent positives and negatives as discussed in HPI, a complete review of systems was performed and all other systems are negative. Physical examination: Vital signs reviewed General: nontoxic, no distress, appears at stated age Derm: warm, dry, intact Head: atraumatic, normocephalic, symmetric Eyes: EOMI, anicteric sclera Mouth: no lip lesion, mucus membranes moist Cardiovascular: S1 S2 reg, no murmur Lungs: CTA bilateral, no rhonchi, no rales, no accessory muscle use Abdominal: soft, non-tender to palpation Extremities: No cyanosis, clubbing, or pedal edema. Neuro: Alert, Oriented, Gross neurological examination did not reveal any focal deficits. Psych: well appearing, appropriate affect Assessment/Plan: Patient is a 74 year old male with Coronary artery disease s/p stent placement, diabetes mellitus, hyperlipidemia, hypertension, tobacco dependence presented to the ED with abdominal pain. Patient admitted to internal medicine service. Active: #. Abdominal pain #. Ascites #. Sepsis #. History of Liver cirrhosis #. Possible Hepatic neoplasm with metastasis #. Possible upper GI bleed #. Possible SBP #. Leukocytosis, secondary to above #. Hypervolemic Hyponatremia Abdomen/pelvis CT shows multiple hypodense masses of the caudate lobe of the liver with lobular masses scattered within the gastrohepatic ligament, omentum and upper mesentery, Findings suspicious for hepatic neoplasm with marked metastatic disease. Stable changes of cirrhotic liver. Interval development of moderate ascites. Stable osseous lesions involving L3 and L5 and S1, possibly metastatic disease Started on Protonix 40 mg IV BID Initiated Ceftriaxone 2 gm IVPB Q24HR Paracentesis and ascitic fluid tests ordered Obtain bilirubin fractions, coagulation panel, AFP Consider Tylenol(max 2gm/day) for pain management, received Dilaudid in the ED Monitor CBC and BMP Consult Oncology for liver lesions Consult GI for possible upper GI bleed, evaluation of possible esophageal varices Consult IR for paracentesis #. AMINATA on CKD #. Hepatorenal syndrome UA shows specific gravity 1.036, 1+ protein, 4 hyaline casts, rare mucus Received 1L LR bolus IV fluids discontinued Monitor BMP #. Type B Lactic acidosis Lactic acid 5.0 Received 1L LR bolus Trend lactate #. Prostatic hypertrophy #. History of BPH Abdomen pelvic CT shows Moderate prostatic hypertrophy Continue home med Tadalafil 10 mg PO daily Obtain PSA Monitor urine output #. Hyperkalemia K 5.5, hemolyzed EKG independently interpreted as sinus rhythm; T wave inversion in lead II, 3, aVF, V4-V6; left ventricular hypertrophy, rate 83 bpm, QTc 441 ms. Unchanged from 2 years ago Monitor BMP #. Type II Diabetes mellitus Obtain A1c Insulin sliding scale and ACHS blood glucose monitoring Monitor for hypoglycemia Hold home med metformin Chronic: #. Hypertension #. Hyperlipidemia #. CAD S/p multiple stents #. GERD Continue home meds amlodipine 10 mg p.o. daily, atorvastatin 40 mg p.o. daily, Imdur 30 mg p.o. daily, losartan 50 mg p.o. daily, metoprolol 50 mg p.o. daily Plavix held for possible upper GI bleed, Farxiga held for renal function F: None E: Replete as required N: Consistent carbohydrate diet A: Ambulatory DVT prophylaxis: Not indicated GI prophylaxis: Pantoprazole 40 mg IV BID The patient is admitted with an anticipated more than 2 midnight stay for evaluation of abdominal pain CODE STATUS: FULL CODE Discussed with: Patient Anticipated discharge place: Pending clinical course Dictation was produced using [employer] dictation software. please excuse any grammatical, word or spelling errors. Nuzhat Bustos MD PGY-1 IM I have seen and evaluated the patient today. Discussed with the resident and agree with the residents finding and plan as documented in the resident's note. Changes highlighted in blue font. Past Medical History Past Medical History: Coronary Artery Disease (CAD), Diabetes Mellitus, Hyperlipidemia, Hypertension Additional Past Medical History / Comment(s): [place] Palsy History of Any Multi-Drug Resistant Organisms: None Reported Past Surgical History: Appendectomy, Cholecystectomy, Heart Catheterization With Stent Past Psychological History: No Psychological Hx Reported Smoking Status: Current every day smoker Past Alcohol Use History: None Reported Past Drug Use History: None Reported Medications and Allergies Home Medications Medication Instructions Recorded Confirmed Type Atorvastatin [Lipitor] 40 mg PO DAILY 08/16/22 09/23/24 History Furosemide [Lasix] 80 mg PO DAILY 08/16/22 09/23/24 History Losartan [Cozaar] 50 mg PO DAILY 08/16/22 09/23/24 History Metoprolol Succinate [Toprol XL] 50 mg PO DAILY 08/16/22 09/23/24 History Nitroglycerin Sl Tabs [Nitrostat] 0.4 mg SL Q5M PRN 08/16/22 09/23/24 History Pantoprazole [Protonix] 40 mg PO DAILY 08/16/22 09/23/24 History amLODIPine [Norvasc] 10 mg PO DAILY 08/16/22 09/23/24 History oxyCODONE-APAP 10-325MG [Percocet 1 tab PO Q4H 08/16/22 09/23/24 History 10-325 mg] Aspirin EC [Ecotrin Low Dose] 81 mg PO DAILY 09/23/24 09/23/24 History Clopidogrel [Plavix] 75 mg PO DAILY 09/23/24 09/23/24 History Dapagliflozin Propanediol [Farxiga] 10 mg PO DAILY 09/23/24 09/23/24 History Ergocalciferol (Vitamin D2) 1,250 mcg PO TH 09/23/24 09/23/24 History [Drisdol (GEQ) 1,250 MCG (50,000 IU)] Isosorbide Mononitrate ER [Imdur] 30 mg PO DAILY 09/23/24 09/23/24 History Spironolactone [Aldactone] 25 mg PO DAILY 09/23/24 09/23/24 History metFORMIN HCL ER [Glucophage XR] 500 mg PO DAILY 09/23/24 09/23/24 History Allergies Allergy/AdvReac Type Severity Reaction Status Date / Time cephalexin [From Keflex] AdvReac Nausea & Verified 09/23/24 16:24 Vomiting & Diarrhea Physical Exam Vitals: Vital Signs Temp Pulse Resp BP Pulse Ox 09/23/24 14:45 71 18 150/95 97 09/23/24 12:01 97.7 F 86 20 144/83 97 Intake and Output 09/23/24 09/23/24 09/23/24 06:59 14:59 22:59 Other: Weight 102.421 kg Results CBC & Chem 7: 09/23/24 13:21 09/23/24 13:21 Labs: Abnormal Lab Results - Last 24 Hours (Table) 09/23/24 09/23/24 09/23/24 Range/Units 12:22 12:22 13:21 WBC 16.45 H 16.47 H (4.50-10.00) 10*3/uL Immature Gran # 0.31 H 0.22 H (0.00-0.04) 10*3/uL Neutrophils # 12.70 H 12.87 H (1.80-7.70) 10*3/uL Monocytes # 2.05 H 1.99 H (0.20-1.00) 10*3/uL Eosinophils # 0.03 L 0.03 L (0.04-0.35) 10*3/uL Sodium 134 L (137-145) mmol/L Potassium (3.5-5.1) mmol/L Chloride 93 L (98-107) mmol/L BUN 54 H (9-20) mg/dL Creatinine 1.94 H (0.66-1.25) mg/dL Glucose 161 H (74-99) mg/dL Plasma Lactic Acid Tomás (0.7-2.0) mmol/L Total Bilirubin 2.0 H (0.2-1.3) mg/dL Total Protein 6.0 L (6.3-8.2) g/dL Albumin 3.2 L (3.5-5.0) g/dL Ur Specific [place] (1.001-1.035) Urine Protein (Negative) Hyaline Casts (0-2) /lpf Urine Mucus (None) /hpf 09/23/24 09/23/24 09/23/24 Range/Units 13:21 13:21 14:55 WBC (4.50-10.00) 10*3/uL Immature Gran # (0.00-0.04) 10*3/uL Neutrophils # (1.80-7.70) 10*3/uL Monocytes # (0.20-1.00) 10*3/uL Eosinophils # (0.04-0.35) 10*3/uL Sodium 132 L (137-145) mmol/L Potassium 5.5 H (3.5-5.1) mmol/L Chloride 94 L (98-107) mmol/L BUN 56 H (9-20) mg/dL Creatinine 1.83 H (0.66-1.25) mg/dL Glucose 160 H (74-99) mg/dL Plasma Lactic Acid Tomás 5.0 H* (0.7-2.0) mmol/L Total Bilirubin 2.3 H (0.2-1.3) mg/dL Total Protein 6.2 L (6.3-8.2) g/dL Albumin 3.2 L (3.5-5.0) g/dL Ur Specific [place] 1.036 H (1.001-1.035) Urine Protein 1+ H (Negative) Hyaline Casts 4 H (0-2) /lpf Urine Mucus Rare H (None) /hpf
[2024-09-23 18:16] LABS: INR 1.2 (<1.2); Prothrombin Time 12.5 sec (10.0-12.5)
[2024-09-23 20:19] LABS: Glucose,Whole Blood 124 mg/dL (70-110)
[2024-09-23] MEDS ORDERED: oxyCODONE-APAP 10-325MG 1 EACH TAB PO SCH (21:00)
[2024-09-23] MEDS: oxyCODONE-APAP 10-325MG 1 EACH TAB PO PRN (21:53)
[2024-09-23] MEDS: PANTOPRAZOLE 40 MG/10 ML VIAL IVP SCH (21:53)
[2024-09-24] MEDS ORDERED: HEPARIN SODIUM,PORCINE 5,000 UNIT/ML 1 ML VIAL SQ SCH
[2024-09-24 03:16] LABS: HCT 35.9 % (39.6-50.0); HGB 11.7 g/dL (13.0-17.0); MCH 27.9 pg (27.0-32.0); MCHC 32.6 g/dL (32.0-37.0); MCV 85.5 fL (80.0-97.0); Mean Platelet Volume 10.7 fL (9.5-12.2); Platelet Count 269 10*3/uL (140-440); RDW 15.1 % (11.5-14.5); WBC 14.34 10*3/uL (4.50-10.00)
[2024-09-24 03:59] LABS: Carbon Dioxide 24 mmol/L (22-30); Chloride 98 mmol/L (98-107); Glucose 116 mg/dL (74-99); Sodium 132 mmol/L (137-145)
[2024-09-24 04:00] LABS: African American GFR (CKD) 47 (>60 ml/min/1.73 sqM); Anion Gap 10 mmol/L; Blood Urea Nitrogen 54 mg/dL (9-20); Calcium 8.8 mg/dL (8.4-10.2); Non-African American GFR(CKD) 41 (>60 ml/min/1.73 sqM)
[2024-09-24] MEDS: ONDANSETRON 4 MG/2 ML VIAL IVP PRN (06:03)
[2024-09-24 07:11] LABS: Glucose,Whole Blood 118 mg/dL (70-110)
[2024-09-24] MEDS ORDERED: PANTOPRAZOLE 40 MG TABLET PO SCH (07:30)
[2024-09-24] MEDS: ISOSORBIDE MONONITRATE ER 30 MG TAB.ER.24H PO SCH (08:27)
[2024-09-24] MEDS: SPIRONOLACTONE 25 MG TAB PO SCH (08:27)
[2024-09-24] MEDS: amLODIPine 10 MG TAB PO SCH (08:27)
[2024-09-24] MEDS: ATORVASTATIN 40 MG TAB PO SCH (08:27)
[2024-09-24] MEDS: METOPROLOL SUCCINATE (ER) 50 MG TAB.ER.24H PO SCH (08:28)
[2024-09-24] MEDS ORDERED: CLOPIDOGREL 75 MG TAB PO SCH (09:00)
[2024-09-24] MEDS ORDERED: LOSARTAN 50 MG TAB PO SCH (09:00)
[2024-09-24] MEDS ORDERED: DAPAGLIFLOZIN PROPANEDIOL 10 MG TABLET PO SCH (09:00)
[2024-09-24] MEDS: ASPIRIN 81 MG PO SCH (10:28)
[2024-09-24] MEDS: chlorproMAZINE 25 MG TAB PO PRN (11:40)
[2024-09-24 12:00] LABS: Glucose,Whole Blood 124 mg/dL (70-110)
--- NOTE | 2024-09-24 12:32 | P.PN ---
Subjective Progress Note Date: 09/24/24 Principal diagnosis: Hospital course: Patient is a 74 year old male with Coronary artery disease s/p stent placement, diabetes mellitus, hyperlipidemia, hypertension, tobacco dependence presented to the ED with abdominal pain. Patient reports helping his friend with some patio work 2 weeks ago when he started having hot flashes. He then had abdominal pain associated with vomiting. 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 He mention he lost 20 pounds in the last week and a half. He mentions that he usually drinks a lot of water but lately has only had a glass of water a day and has had decreased appetite. He also has soft stools, but denies diarrhea. 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 He did have an MRI of the abdomen a few years ago at [facility] in [place]. He has also had some surgery for twisted bowel years ago. He is a current everyday smoker, smoking since he was 14. He was drinking alcohol in the past but quit when he was 49. Moreover he reports having a headache and eye pain, but mentions that its similar to the migraines he used to have in the past. Abdomen pelvis CT done in 2022 shows no evidence for acute process, hepatic cirrhosis evidence of portal hypertension splenomegaly, scattered hepatic hypodense lesions. Appearance of the attending indicates a 500, prostatomegaly, chronic diverticulosis, bilateral fat-containing inguinal hernias. Denies fever, chills, shortness of breath, cough, chest pain, palpitations, hematuria, dysuria, hematochezia, melena, slurred speech, numbness, tingling, lightheadedness, blurred vision, double vision. ED documentation reviewed. In the ED patient was treated with Dilaudid, Zofran, lactated Ringer. 09/24/24: Patient is seen and examined at bedside today. Last night he reported 10/10 pain, home med Percocet was resumed and he wished to be made No code. He notes slight improvement in pain today. Review of systems: Pertinent positives and negatives as discussed in HPI, a complete review of systems was performed and all other systems are negative. Vitals: Signs Reviewed, SpO2 97% on 2L oxygen via NC Physical examination: General: nontoxic, no distress, appears at stated age Derm: warm, dry, intact Head: atraumatic, normocephalic, symmetric Eyes: EOMI, anicteric sclera Mouth: no lip lesion, mucus membranes moist Cardiovascular: S1 S2 reg, no murmur Lungs: CTA bilateral, no rhonchi, no rales, no accessory muscle use Abdominal: soft, non-tender to palpation Extremities: No cyanosis, clubbing, or pedal edema. Neuro: Alert, Oriented, Gross neurological examination did not reveal any focal deficits. Psych: well appearing, appropriate affect Data Reviewed Today: Labs: WBC 14.34, Hb 11.7, Na 132, BUN 54, creatinine 1.63, lactic acid 2.2, glucose 118, A1c 6.7 Total bilirubin 1.7, Conjugated bili 0, Unconjugated bili 0.9, AFP <3 Imaging: No new imaging Assessment/Plan: Patient is a 74 year old male with Coronary artery disease s/p stent placement, diabetes mellitus, hyperlipidemia, hypertension, tobacco dependence presented to the ED with abdominal pain. Active: #. Abdominal pain #. Ascites #. Sepsis #. History of Liver cirrhosis #. Possible Hepatic neoplasm with metastasis #. Possible upper GI bleed #. Possible SBP #. Leukocytosis, secondary to above, improving #. Hypervolemic Hyponatremia Abdomen/pelvis CT shows multiple hypodense masses of the caudate lobe of the liver with lobular masses scattered within the gastrohepatic ligament, omentum and upper mesentery, Findings suspicious for hepatic neoplasm with marked metastatic disease. Stable changes of cirrhotic liver. Interval development of moderate ascites. Stable osseous lesions involving L3 and L5 and S1, possibly metastatic disease Total bilirubin 1.7, Conjugated bili 0, Unconjugated bili 0.9, AFP <3 Continue Protonix 40 mg IV BID and Ceftriaxone 2 gm IVPB Q24HR Paracentesis and ascitic fluid tests ordered Received Dilaudid in the ED, Home med Percocet was resumed overnight Monitor CBC and BMP Consult Oncology for liver lesions, recommend obtaining CEA, CA19-9 Consult GI for possible upper GI bleed, evaluation of possible esophageal varices, recommend obtaining Acute hepatitis panel Consult IR for paracentesis, recommend US abdomen to see if there is enough fluid to be drained #. AMINATA on CKD, improving #. Hepatorenal syndrome UA shows specific gravity 1.036, 1+ protein, 4 hyaline casts, rare mucus Received 1L LR bolus IV fluids discontinued Monitor BMP #. Type II Diabetes mellitus A1c 6.7 Insulin sliding scale and ACHS blood glucose monitoring Monitor for hypoglycemia Hold home med metformin #. Nausea and vomiting Continue Zofran 4 mg IVP Q6HR PRN #. Type B Lactic acidosis, improving Received 1L LR bolus Trend lactate #. Prostatic hypertrophy #. History of BPH Abdomen pelvic CT shows Moderate prostatic hypertrophy Continue home med Tadalafil 10 mg PO daily Pending PSA Monitor urine output #. Hyperkalemia, resolved Chronic: #. Hypertension #. Hyperlipidemia #. CAD S/p multiple stents #. GERD Continue home meds amlodipine 10 mg p.o. daily, atorvastatin 40 mg p.o. daily, Imdur 30 mg p.o. daily, losartan 50 mg p.o. daily, metoprolol 50 mg p.o. daily Plavix held for possible upper GI bleed, Farxiga held for renal function F: None E: Replete as required N: Consistent carbohydrate diet A: Ambulatory DVT prophylaxis: Not indicated GI prophylaxis: Pantoprazole 40 mg IV BID Code status: NO CODE Anticipated discharge place: Pending clinical course Anticipated discharge time: Pending clinical course Dictation was produced using [employer] dictation software. please excuse any grammatical, word or spelling errors. Nuzhat Bustos MD PGY-1 IM I have seen and evaluated the patient today. Discussed with the resident and agree with the residents finding and plan as documented in the resident's note. Changes highlighted in blue font. Objective - Vital Signs Vital signs: Vital Signs Temp 97.5 F L 09/24/24 07:04 Pulse 66 09/24/24 07:04 Resp 16 09/24/24 07:04 BP 149/88 09/24/24 07:04 Pulse Ox 97 09/24/24 07:04 FiO2 Intake & Output 09/23/24 09/24/24 09/24/24 18:59 06:59 18:59 Intake Total 590 Balance 590 Weight 102.421 kg 102.421 kg Intake: Oral 590 Other: Voiding Method Toilet # Voids 2 - Labs CBC & Chem 7: 09/24/24 02:39 09/24/24 02:39 Labs: Abnormal Lab Results - Last 24 Hours (Table) 09/23/24 09/23/24 09/23/24 Range/Units 12:22 12:22 13:21 WBC 16.45 H 16.47 H (4.50-10.00) 10*3/uL RBC (4.40-5.60) 10*6/uL Hgb (13.0-17.0) g/dL Hct (39.6-50.0) % RDW (11.5-14.5) % Immature Gran # 0.31 H 0.22 H (0.00-0.04) 10*3/uL Neutrophils # 12.70 H 12.87 H (1.80-7.70) 10*3/uL Monocytes # 2.05 H 1.99 H (0.20-1.00) 10*3/uL Eosinophils # 0.03 L 0.03 L (0.04-0.35) 10*3/uL INR (<1.2) Sodium 134 L (137-145) mmol/L Potassium (3.5-5.1) mmol/L Chloride 93 L (98-107) mmol/L BUN 54 H (9-20) mg/dL Creatinine 1.94 H (0.66-1.25) mg/dL Glucose 161 H (74-99) mg/dL POC Glucose (mg/dL) (70-110) mg/dL Hemoglobin A1c (<=6.0) % Plasma Lactic Acid Tomás (0.7-2.0) mmol/L Total Bilirubin 2.0 H (0.2-1.3) mg/dL Total Protein 6.0 L (6.3-8.2) g/dL Albumin 3.2 L (3.5-5.0) g/dL Ur Specific [place] (1.001-1.035) Urine Protein (Negative) Hyaline Casts (0-2) /lpf Urine Mucus (None) /hpf 09/23/24 09/23/24 09/23/24 Range/Units 13:21 13:21 14:55 WBC (4.50-10.00) 10*3/uL RBC (4.40-5.60) 10*6/uL Hgb (13.0-17.0) g/dL Hct (39.6-50.0) % RDW (11.5-14.5) % Immature Gran # (0.00-0.04) 10*3/uL Neutrophils # (1.80-7.70) 10*3/uL Monocytes # (0.20-1.00) 10*3/uL Eosinophils # (0.04-0.35) 10*3/uL INR (<1.2) Sodium 132 L (137-145) mmol/L Potassium 5.5 H (3.5-5.1) mmol/L Chloride 94 L (98-107) mmol/L BUN 56 H (9-20) mg/dL Creatinine 1.83 H (0.66-1.25) mg/dL Glucose 160 H (74-99) mg/dL POC Glucose (mg/dL) (70-110) mg/dL Hemoglobin A1c (<=6.0) % Plasma Lactic Acid Tomás 5.0 H* (0.7-2.0) mmol/L Total Bilirubin 2.3 H (0.2-1.3) mg/dL Total Protein 6.2 L (6.3-8.2) g/dL Albumin 3.2 L (3.5-5.0) g/dL Ur Specific [place] 1.036 H (1.001-1.035) Urine Protein 1+ H (Negative) Hyaline Casts 4 H (0-2) /lpf Urine Mucus Rare H (None) /hpf 09/23/24 09/23/24 09/23/24 Range/Units 16:12 17:18 17:30 WBC (4.50-10.00) 10*3/uL RBC (4.40-5.60) 10*6/uL Hgb (13.0-17.0) g/dL Hct (39.6-50.0) % RDW (11.5-14.5) % Immature Gran # (0.00-0.04) 10*3/uL Neutrophils # (1.80-7.70) 10*3/uL Monocytes # (0.20-1.00) 10*3/uL Eosinophils # (0.04-0.35) 10*3/uL INR (<1.2) Sodium (137-145) mmol/L Potassium (3.5-5.1) mmol/L Chloride (98-107) mmol/L BUN (9-20) mg/dL Creatinine (0.66-1.25) mg/dL Glucose (74-99) mg/dL POC Glucose (mg/dL) 138 H (70-110) mg/dL Hemoglobin A1c 6.7 H (<=6.0) % Plasma Lactic Acid Tomás 4.5 H* (0.7-2.0) mmol/L Total Bilirubin (0.2-1.3) mg/dL Total Protein (6.3-8.2) g/dL Albumin (3.5-5.0) g/dL Ur Specific [place] (1.001-1.035) Urine Protein (Negative) Hyaline Casts (0-2) /lpf Urine Mucus (None) /hpf 09/23/24 09/23/24 09/23/24 Range/Units 17:42 17:42 19:53 WBC (4.50-10.00) 10*3/uL RBC (4.40-5.60) 10*6/uL Hgb (13.0-17.0) g/dL Hct (39.6-50.0) % RDW (11.5-14.5) % Immature Gran # (0.00-0.04) 10*3/uL Neutrophils # (1.80-7.70) 10*3/uL Monocytes # (0.20-1.00) 10*3/uL Eosinophils # (0.04-0.35) 10*3/uL INR 1.2 H (<1.2) Sodium (137-145) mmol/L Potassium (3.5-5.1) mmol/L Chloride (98-107) mmol/L BUN (9-20) mg/dL Creatinine (0.66-1.25) mg/dL Glucose (74-99) mg/dL POC Glucose (mg/dL) (70-110) mg/dL Hemoglobin A1c (<=6.0) % Plasma Lactic Acid Tomás 3.8 H* (0.7-2.0) mmol/L Total Bilirubin 1.7 H (0.2-1.3) mg/dL Total Protein (6.3-8.2) g/dL Albumin (3.5-5.0) g/dL Ur Specific [place] (1.001-1.035) Urine Protein (Negative) Hyaline Casts (0-2) /lpf Urine Mucus (None) /hpf 09/23/24 09/23/24 09/24/24 Range/Units 20:17 22:52 02:39 WBC 14.34 H (4.50-10.00) 10*3/uL RBC 4.20 L (4.40-5.60) 10*6/uL Hgb 11.7 L (13.0-17.0) g/dL Hct 35.9 L (39.6-50.0) % RDW 15.1 H (11.5-14.5) % Immature Gran # (0.00-0.04) 10*3/uL Neutrophils # (1.80-7.70) 10*3/uL Monocytes # (0.20-1.00) 10*3/uL Eosinophils # (0.04-0.35) 10*3/uL INR (<1.2) Sodium (137-145) mmol/L Potassium (3.5-5.1) mmol/L Chloride (98-107) mmol/L BUN (9-20) mg/dL Creatinine (0.66-1.25) mg/dL Glucose (74-99) mg/dL POC Glucose (mg/dL) 124 H (70-110) mg/dL Hemoglobin A1c (<=6.0) % Plasma Lactic Acid Tomás 3.2 H* (0.7-2.0) mmol/L Total Bilirubin (0.2-1.3) mg/dL Total Protein (6.3-8.2) g/dL Albumin (3.5-5.0) g/dL Ur Specific [place] (1.001-1.035) Urine Protein (Negative) Hyaline Casts (0-2) /lpf Urine Mucus (None) /hpf 09/24/24 09/24/24 09/24/24 Range/Units 02:39 02:39 06:42 WBC (4.50-10.00) 10*3/uL RBC (4.40-5.60) 10*6/uL Hgb (13.0-17.0) g/dL Hct (39.6-50.0) % RDW (11.5-14.5) % Immature Gran # (0.00-0.04) 10*3/uL Neutrophils # (1.80-7.70) 10*3/uL Monocytes # (0.20-1.00) 10*3/uL Eosinophils # (0.04-0.35) 10*3/uL INR (<1.2) Sodium 132 L (137-145) mmol/L Potassium (3.5-5.1) mmol/L Chloride (98-107) mmol/L BUN 54 H (9-20) mg/dL Creatinine 1.63 H (0.66-1.25) mg/dL Glucose 116 H (74-99) mg/dL POC Glucose (mg/dL) (70-110) mg/dL Hemoglobin A1c (<=6.0) % Plasma Lactic Acid Tomás 2.6 H* 2.2 H* (0.7-2.0) mmol/L Total Bilirubin (0.2-1.3) mg/dL Total Protein (6.3-8.2) g/dL Albumin (3.5-5.0) g/dL Ur Specific [place] (1.001-1.035) Urine Protein (Negative) Hyaline Casts (0-2) /lpf Urine Mucus (None) /hpf 09/24/24 Range/Units 07:09 WBC (4.50-10.00) 10*3/uL RBC (4.40-5.60) 10*6/uL Hgb (13.0-17.0) g/dL Hct (39.6-50.0) % RDW (11.5-14.5) % Immature Gran # (0.00-0.04) 10*3/uL Neutrophils # (1.80-7.70) 10*3/uL Monocytes # (0.20-1.00) 10*3/uL Eosinophils # (0.04-0.35) 10*3/uL INR (<1.2) Sodium (137-145) mmol/L Potassium (3.5-5.1) mmol/L Chloride (98-107) mmol/L BUN (9-20) mg/dL Creatinine (0.66-1.25) mg/dL Glucose (74-99) mg/dL POC Glucose (mg/dL) 118 H (70-110) mg/dL Hemoglobin A1c (<=6.0) % Plasma Lactic Acid Tomás (0.7-2.0) mmol/L Total Bilirubin (0.2-1.3) mg/dL Total Protein (6.3-8.2) g/dL Albumin (3.5-5.0) g/dL Ur Specific [place] (1.001-1.035) Urine Protein (Negative) Hyaline Casts (0-2) /lpf Urine Mucus (None) /hpf
[2024-09-24 14:20] VITALS: BMI 36.4
--- NOTE | 2024-09-24 14:43 | P.CONS ---
History of Present Illness - Reason for Consult Consult date: 09/24/24 Possible upper GI bleed, cirrhosis Requesting physician: Nuzhat Bustos - Chief Complaint Abdominal pain - History of Present Illness This a pleasant 74-year-old male with a history of obesity, diabetes mellitus, hypertension, coronary artery disease with multiple cardiac stents, daily smoker who presented to the emergency department with complaints of abdominal pain, dec reased appetite, hiccups and occasional vomiting/spitting up mucus. States he has been having abdominal pain from the epigastric region all the way down to the lower abdomen for the last 2 weeks. States all of his symptoms started about 2 weeks ago after having some hot flashes then he started having decreased appetite abdominal pain chronic hiccups which then lead him into like a dry heaving and spitting up mucousy phlegm. He has decreased appetite with a 20 pound weight loss over the last 2 weeks duration. He had a CT of the abdomen pelvis reporting multiple liver masses in L3 L5 osseous lesions. He has a past medical history of significant alcohol abuse greater than 15 years where he states he drank very heavy daily. Still drinks on occasion. Was diagnosed with liver cirrhosis 4 to 5 years ago at [facility]. States he had workup there with an EGD colonoscopy with Dr. Ibanez. They were following him for liver cirrhosis and liver mass/cyst which he states he was told was nothing to worry about. Gastroenterology was consulted for liver cirrhosis and possible GI bleed. Rhona balderas currently has hiccups. He has some phlegmy emesis in his basin which is clear with a little dark speck. Complains still of abdominal pain across his entire abdomen. 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 Admitting labs WBC 16.4 hemoglobin 13 platelet count 301,000 INR 1.2 sodium 132 potassium 5.5 BUN 56 creatinine 1.8 lactic acid 3.2 total bilirubin 1.7 conjugated 0.0 unconjugated 0.9 AST 36 ALT 12 alkaline phosphatase 72 amylase 35 lipase 82 AFP tumor marker less than 3 Upper endoscopy from 09/26/[address] Johnston reports irregular Z-line, duodenitis. Pathology reports squamous and glandular mucosa with intestinal metaplasia consistent with Medrano's esophagus Colonoscopy from 09/26/[address] Ibanez reports small cecal polyp status post snare polypectomy, small transverse colon polyp status post cold snare polypectomy, small sigmoid polyp status post cold snare polypectomy, few scattered sigmoid diverticula, internal hemorrhoids. Pathology reports tubular adenoma. Review of Systems REVIEW OF SYSTEMS: CARDIOPULMONARY: No chest pain or shortness of breath. Gastrointestinal: Abdominal pain. Nausea with vomiting/spitting up. Chronic hiccups. Decreased appetite. No hematemesis, coffee-ground emesis. No rectal bleeding, or melena. GENITOURINARY: No dysuria or hematuria. MUSCULOSKELETAL: Reports normal range of motion., Joint pain. SKIN: No rashes. No jaundice. ENDOCRINE: No chills, fevers. No excessive weight gain or loss. No polydipsia or polyuria. PSYCHIATRIC: Unremarkable. NEUROLOGY: No change in mental status. Denies dizziness, headache. ENT: Vision unremarkable. CONSTITUTIONAL: 20 pound weight loss. No fever, chills, night sweats. Past Medical History Past Medical History: Coronary Artery Disease (CAD), Diabetes Mellitus, Hyperlipidemia, Hypertension Additional Past Medical History / Comment(s): [place] Palsy History of Any Multi-Drug Resistant Organisms: None Reported Past Surgical History: Appendectomy, Cholecystectomy, Heart Catheterization With Stent Past Anesthesia/Blood Transfusion Reactions: No Reported Reaction Date of Last Stent Placement:: 2022 Past Psychological History: No Psychological Hx Reported Smoking Status: Current every day smoker Past Alcohol Use History: None Reported Past Drug Use History: None Reported Medications and Allergies Home Medications Medication Instructions Recorded Confirmed Type Atorvastatin [Lipitor] 40 mg PO DAILY 08/16/22 09/23/24 History Furosemide [Lasix] 80 mg PO DAILY 08/16/22 09/23/24 History Losartan [Cozaar] 50 mg PO DAILY 08/16/22 09/23/24 History Metoprolol Succinate [Toprol XL] 50 mg PO DAILY 08/16/22 09/23/24 History Nitroglycerin Sl Tabs [Nitrostat] 0.4 mg SL Q5M PRN 08/16/22 09/23/24 History Pantoprazole [Protonix] 40 mg PO DAILY 08/16/22 09/23/24 History amLODIPine [Norvasc] 10 mg PO DAILY 08/16/22 09/23/24 History oxyCODONE-APAP 10-325MG [Percocet 1 tab PO Q4H 08/16/22 09/23/24 History 10-325 mg] Aspirin EC [Ecotrin Low Dose] 81 mg PO DAILY 09/23/24 09/23/24 History Clopidogrel [Plavix] 75 mg PO DAILY 09/23/24 09/23/24 History Dapagliflozin Propanediol [Farxiga] 10 mg PO DAILY 09/23/24 09/23/24 History Ergocalciferol (Vitamin D2) 1,250 mcg PO TH 09/23/24 09/23/24 History [Drisdol (GEQ) 1,250 MCG (50,000 IU)] Isosorbide Mononitrate ER [Imdur] 30 mg PO DAILY 09/23/24 09/23/24 History Spironolactone [Aldactone] 25 mg PO DAILY 09/23/24 09/23/24 History metFORMIN HCL ER [Glucophage XR] 500 mg PO DAILY 09/23/24 09/23/24 History Allergies Allergy/AdvReac Type Severity Reaction Status Date / Time cephalexin [From Keflex] AdvReac Nausea & Verified 09/23/24 16:24 Vomiting & Diarrhea Physical Exam Vitals: Vital Signs Temp Pulse Pulse Resp BP BP Pulse Ox 09/24/24 07:04 97.5 F L 66 16 149/88 97 09/24/24 01:35 97.5 F L 69 16 162/93 96 09/23/24 18:38 97.7 F 72 18 155/92 97 09/23/24 18:25 73 18 149/92 97 09/23/24 17:30 98 F 69 16 137/87 97 09/23/24 17:14 73 18 141/90 97 09/23/24 14:45 71 18 150/95 97 09/23/24 12:01 97.7 F 86 20 144/83 97 Intake and Output 09/23/24 09/24/24 09/24/24 22:59 06:59 14:59 Intake Total 590 Balance 590 Intake: Oral 590 Other: Voiding Method Toilet # Voids 2 Weight 102.421 kg General appearance: The patient is alert, oriented, appears in no acute distress. HET: Head is normocephalic and atraumatic. Conjunctiva pink. Sclera anicteric. Neck: Supple without lymphadenopathy. Trachea midline. Heart: Regular. Lungs: Equal expansion, normal respiratory effort. Abdomen: Soft, diffuse abdominal tenderness, ascites, obese, nondistended. Skin: No rashes. No jaundice. Extremities: Normal skin color and turgor. No pedal edema. Neurological: No focal deficits. Alert and oriented x3. Results CBC & Chem 7: 09/24/24 02:39 09/24/24 02:39 Labs: Abnormal Lab Results - Last 24 Hours (Table) 09/23/24 09/23/24 09/23/24 Range/Units 12:22 12:22 13:21 WBC 16.45 H 16.47 H (4.50-10.00) 10*3/uL RBC (4.40-5.60) 10*6/uL Hgb (13.0-17.0) g/dL Hct (39.6-50.0) % RDW (11.5-14.5) % Immature Gran # 0.31 H 0.22 H (0.00-0.04) 10*3/uL Neutrophils # 12.70 H 12.87 H (1.80-7.70) 10*3/uL Monocytes # 2.05 H 1.99 H (0.20-1.00) 10*3/uL Eosinophils # 0.03 L 0.03 L (0.04-0.35) 10*3/uL INR (<1.2) Sodium 134 L (137-145) mmol/L Potassium (3.5-5.1) mmol/L Chloride 93 L (98-107) mmol/L BUN 54 H (9-20) mg/dL Creatinine 1.94 H (0.66-1.25) mg/dL Glucose 161 H (74-99) mg/dL POC Glucose (mg/dL) (70-110) mg/dL Hemoglobin A1c (<=6.0) % Plasma Lactic Acid Tomás (0.7-2.0) mmol/L Total Bilirubin 2.0 H (0.2-1.3) mg/dL Total Protein 6.0 L (6.3-8.2) g/dL Albumin 3.2 L (3.5-5.0) g/dL Ur Specific Felt (1.001-1.035) Urine Protein (Negative) Hyaline Casts (0-2) /lpf Urine Mucus (None) /hpf 09/23/24 09/23/24 09/23/24 Range/Units 13:21 13:21 14:55 WBC (4.50-10.00) 10*3/uL RBC (4.40-5.60) 10*6/uL Hgb (13.0-17.0) g/dL Hct (39.6-50.0) % RDW (11.5-14.5) % Immature Gran # (0.00-0.04) 10*3/uL Neutrophils # (1.80-7.70) 10*3/uL Monocytes # (0.20-1.00) 10*3/uL Eosinophils # (0.04-0.35) 10*3/uL INR (<1.2) Sodium 132 L (137-145) mmol/L Potassium 5.5 H (3.5-5.1) mmol/L Chloride 94 L (98-107) mmol/L BUN 56 H (9-20) mg/dL Creatinine 1.83 H (0.66-1.25) mg/dL Glucose 160 H (74-99) mg/dL POC Glucose (mg/dL) (70-110) mg/dL Hemoglobin A1c (<=6.0) % Plasma Lactic Acid Tomás 5.0 H* (0.7-2.0) mmol/L Total Bilirubin 2.3 H (0.2-1.3) mg/dL Total Protein 6.2 L (6.3-8.2) g/dL Albumin 3.2 L (3.5-5.0) g/dL Ur Specific Felt 1.036 H (1.001-1.035) Urine Protein 1+ H (Negative) Hyaline Casts 4 H (0-2) /lpf Urine Mucus Rare H (None) /hpf 09/23/24 09/23/24 09/23/24 Range/Units 16:12 17:18 17:30 WBC (4.50-10.00) 10*3/uL RBC (4.40-5.60) 10*6/uL Hgb (13.0-17.0) g/dL Hct (39.6-50.0) % RDW (11.5-14.5) % Immature Gran # (0.00-0.04) 10*3/uL Neutrophils # (1.80-7.70) 10*3/uL Monocytes # (0.20-1.00) 10*3/uL Eosinophils # (0.04-0.35) 10*3/uL INR (<1.2) Sodium (137-145) mmol/L Potassium (3.5-5.1) mmol/L Chloride (98-107) mmol/L BUN (9-20) mg/dL Creatinine (0.66-1.25) mg/dL Glucose (74-99) mg/dL POC Glucose (mg/dL) 138 H (70-110) mg/dL Hemoglobin A1c 6.7 H (<=6.0) % Plasma Lactic Acid Tomás 4.5 H* (0.7-2.0) mmol/L Total Bilirubin (0.2-1.3) mg/dL Total Protein (6.3-8.2) g/dL Albumin (3.5-5.0) g/dL Ur Specific Felt (1.001-1.035) Urine Protein (Negative) Hyaline Casts (0-2) /lpf Urine Mucus (None) /hpf 09/23/24 09/23/24 09/23/24 Range/Units 17:42 17:42 19:53 WBC (4.50-10.00) 10*3/uL RBC (4.40-5.60) 10*6/uL Hgb (13.0-17.0) g/dL Hct (39.6-50.0) % RDW (11.5-14.5) % Immature Gran # (0.00-0.04) 10*3/uL Neutrophils # (1.80-7.70) 10*3/uL Monocytes # (0.20-1.00) 10*3/uL Eosinophils # (0.04-0.35) 10*3/uL INR 1.2 H (<1.2) Sodium (137-145) mmol/L Potassium (3.5-5.1) mmol/L Chloride (98-107) mmol/L BUN (9-20) mg/dL Creatinine (0.66-1.25) mg/dL Glucose (74-99) mg/dL POC Glucose (mg/dL) (70-110) mg/dL Hemoglobin A1c (<=6.0) % Plasma Lactic Acid Tomás 3.8 H* (0.7-2.0) mmol/L Total Bilirubin 1.7 H (0.2-1.3) mg/dL Total Protein (6.3-8.2) g/dL Albumin (3.5-5.0) g/dL Ur Specific Felt (1.001-1.035) Urine Protein (Negative) Hyaline Casts (0-2) /lpf Urine Mucus (None) /hpf 09/23/24 09/23/24 09/24/24 Range/Units 20:17 22:52 02:39 WBC 14.34 H (4.50-10.00) 10*3/uL RBC 4.20 L (4.40-5.60) 10*6/uL Hgb 11.7 L (13.0-17.0) g/dL Hct 35.9 L (39.6-50.0) % RDW 15.1 H (11.5-14.5) % Immature Gran # (0.00-0.04) 10*3/uL Neutrophils # (1.80-7.70) 10*3/uL Monocytes # (0.20-1.00) 10*3/uL Eosinophils # (0.04-0.35) 10*3/uL INR (<1.2) Sodium (137-145) mmol/L Potassium (3.5-5.1) mmol/L Chloride (98-107) mmol/L BUN (9-20) mg/dL Creatinine (0.66-1.25) mg/dL Glucose (74-99) mg/dL POC Glucose (mg/dL) 124 H (70-110) mg/dL Hemoglobin A1c (<=6.0) % Plasma Lactic Acid Tomás 3.2 H* (0.7-2.0) mmol/L Total Bilirubin (0.2-1.3) mg/dL Total Protein (6.3-8.2) g/dL Albumin (3.5-5.0) g/dL Ur Specific Felt (1.001-1.035) Urine Protein (Negative) Hyaline Casts (0-2) /lpf Urine Mucus (None) /hpf 09/24/24 09/24/24 09/24/24 Range/Units 02:39 02:39 06:42 WBC (4.50-10.00) 10*3/uL RBC (4.40-5.60) 10*6/uL Hgb (13.0-17.0) g/dL Hct (39.6-50.0) % RDW (11.5-14.5) % Immature Gran # (0.00-0.04) 10*3/uL Neutrophils # (1.80-7.70) 10*3/uL Monocytes # (0.20-1.00) 10*3/uL Eosinophils # (0.04-0.35) 10*3/uL INR (<1.2) Sodium 132 L (137-145) mmol/L Potassium (3.5-5.1) mmol/L Chloride (98-107) mmol/L BUN 54 H (9-20) mg/dL Creatinine 1.63 H (0.66-1.25) mg/dL Glucose 116 H (74-99) mg/dL POC Glucose (mg/dL) (70-110) mg/dL Hemoglobin A1c (<=6.0) % Plasma Lactic Acid Tomás 2.6 H* 2.2 H* (0.7-2.0) mmol/L Total Bilirubin (0.2-1.3) mg/dL Total Protein (6.3-8.2) g/dL Albumin (3.5-5.0) g/dL Ur Specific Felt (1.001-1.035) Urine Protein (Negative) Hyaline Casts (0-2) /lpf Urine Mucus (None) /hpf 09/24/24 Range/Units 07:09 WBC (4.50-10.00) 10*3/uL RBC (4.40-5.60) 10*6/uL Hgb (13.0-17.0) g/dL Hct (39.6-50.0) % RDW (11.5-14.5) % Immature Gran # (0.00-0.04) 10*3/uL Neutrophils # (1.80-7.70) 10*3/uL Monocytes # (0.20-1.00) 10*3/uL Eosinophils # (0.04-0.35) 10*3/uL INR (<1.2) Sodium (137-145) mmol/L Potassium (3.5-5.1) mmol/L Chloride (98-107) mmol/L BUN (9-20) mg/dL Creatinine (0.66-1.25) mg/dL Glucose (74-99) mg/dL POC Glucose (mg/dL) 118 H (70-110) mg/dL Hemoglobin A1c (<=6.0) % Plasma Lactic Acid Tomás (0.7-2.0) mmol/L Total Bilirubin (0.2-1.3) mg/dL Total Protein (6.3-8.2) g/dL Albumin (3.5-5.0) g/dL Ur Specific Felt (1.001-1.035) Urine Protein (Negative) Hyaline Casts (0-2) /lpf Urine Mucus (None) /hpf Comments: CT abdomen pelvis with contrast reports interval development of multiple hypodense masses of the caudate lobe of the liver with marked masses scattered within the gastrohepatic ligament, omentum and upper mesentery. Findings are suspicious for hepatic neoplasm with marked metastatic metastatic disease. MRI of the liver would be useful for further evaluation. Stable changes of a cirr hotic liver. Interval development of moderate ascites. Moderate prostatic hypertrophy. Stable osseous lesions involving L3 and L5 and S1. Possible metastatic disease, bone scan might be useful for further evaluation. Assessment and Plan (1) Hepatic cirrhosis Narrative/Plan: 74-year-old male presenting with abdominal pain, nausea vomiting which she reports more as spitting up mucus and secretions after chronic hiccups with known history of liver cirrhosis secondary to alcohol abuse diagnosed about 4 to 5 years ago. 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 Apparently patient had workup 2 to 3 years ago for liver cirrhosis and liver cysts/lesions. Reports were able to be requested and reviewed from previous CT of the abdomen pelvis with IV contrast in 2021 reporting nodular contour of the liver scattered hepatic hypodensities too small to characterize 8 mm enhancing lesion along the anterior right hepatic lobe recommending MRI. MRI dated 10/05/2022 with and with out contrast reporting enhancing nodular focus interlobar portion of the liver. Demonstrates washout indeterminant for malignancy. Advise biopsy. Progressive endplate deformity altered signal intensity mostly involving the superior endplate of L4, active Schmorl's node favored. Correlate with symptoms. Will obtain hepatitis panel. Oncology following for multiple liver masses/lesions. Current Visit: Yes Status: Acute Code(s): K74.60 - UNSPECIFIED CIRRHOSIS OF LIVER SNOMED Code(s): 95818223 (2) History of alcohol abuse Current Visit: Yes Status: Acute Code(s): F10.11 - ALCOHOL ABUSE, IN REMISSION SNOMED Code(s): 031137408 (3) Unintentional weight loss Current Visit: Yes Status: Acute Code(s): R63.4 - ABNORMAL WEIGHT LOSS SNOMED Code(s): 154357847 (4) Abdominal pain Current Visit: Yes Status: Acute Code(s): R10.9 - UNSPECIFIED ABDOMINAL PAIN SNOMED Code(s): 34140462 (5) Ascites Current Visit: Yes Status: Acute Code(s): R18.8 - OTHER ASCITES SNOMED Code(s): 756700941 (6) Nausea and vomiting Current Visit: Yes Status: Acute Code(s): R11.2 - NAUSEA WITH VOMITING, UNSPECIFIED SNOMED Code(s): 15829147 (7) Chronic hiccups Current Visit: Yes Status: Acute Code(s): R06.6 - HICCOUGH SNOMED Code(s): 367426896 (8) Liver masses Current Visit: Yes Status: Acute Code(s): R16.0 - HEPATOMEGALY, NOT ELSEWHERE CLASSIFIED SNOMED Code(s): 272537295 Plan: 1. Continue symptomatic and supportive care 2. Diet as tolerated 3. Start Thorazine for hiccups 4. Protonix 40 mg twice daily 5. Consult is in for interventional radiology for paracentesis with fluid studies 6. Recommend complete alcohol abstinence 7. Records requested from [facility], CT scans and MRI as well as EGD and colonoscopy received and reviewed 8. Daily CBC, CMP 9. Oncology on consultation, appreciate their recommendations 10. No plans on endoscopic evaluation at this time Thank you for this consultation, we will continue to follow. Dr. Domonique Jorgensen I agree with the dictator's note, documented as a scribe by Sherin De.
[2024-09-24 15:48] LABS: Hepatitis A Antibody IgM Nonreactive (Nonreactive); Hepatitis B Core IgM Nonreactive (Nonreactive); Hepatitis B Surface Antigen Nonreactive (Nonreactive); Hepatitis C IgG Antibody Nonreactive (Nonreactive)
[2024-09-24 15:56] LABS: Carcinoembryonic Antigen <2.0 ng/mL (0.0-4.9)
--- NOTE | 2024-09-24 16:24 | P.CONS ---
History of Present Illness - Reason for Consult Consult date: 09/24/24 liver lesions Requesting physician: Matt Dia - Chief Complaint vomiting, abd pain - History of Present Illness Mr. Hernández is a very pleasant 74-year-old male patient that we have been asked to see because of imaging showing multiple liver masses, ascites, possible bone lesions. He states that over the last 2 weeks is when symptoms started. He noting abdominal discomfort, mostly in the epigastric area radiating down to the navel along with distension. Reports intractable hiccups recently, few episodes of significant sweats, appetite is poor, "cannot stand the smell of food" he has also had some episodes of "spit up" but also few episodes of overt vomiting. Report intractable hiccups, even when sleeping! He has lost about 20 pounds, he also has some bilateral lower extremity swelling. Patient denies any personal history of malignancy other than some skin cancers. Vital signs stable since admission, some mild hypertension noted. CBC showing mild elevation in WBC, mostly neutrophilia, platelets normal, mild anemia after some fluids, hemoglobin 11.7. Coags overall normal. Lactic acid elevated, bilirubin as high as 2.3. Conjugated and unconjugated bilirubin are normal. AFP < 3. Amylase and lipase, LFTs normal, as is alk phos. BUN 54, creatinine 1.63. CTAP with contrast compared to imaging from 08/16/2022 cirrhotic liver redemonst rated interval development of multiple masses within the gastrohepatic ligament, mesentery in the upper abdomen and within the omentum. Suggestion of marked enlargement secondary to multiple hypodense masses within the caudate lobe of the liver, ascites noted nothing in the bowel, stable destructive lesion involving posterior aspect of L5 and the superior aspect of L3, stable sclerotic lesion in S1. 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 Colonoscopy from same day-snare polypectomy of a cecal polyp, transverse colon polyp and sigmoid polyp, few scattered sigmoid diverticula, internal hemorrhoids. Pathology positive for tubular adenoma. Review of Systems 10 point review of systems is negative except as stated in HPI Past Medical History Past Medical History: Coronary Artery Disease (CAD), Diabetes Mellitus, Hyp erlipidemia, Hypertension Additional Past Medical History / Comment(s): [place] Palsy History of Any Multi-Drug Resistant Organisms: None Reported Past Surgical History: Appendectomy, Cholecystectomy, Heart Catheterization With Stent Past Anesthesia/Blood Transfusion Reactions: No Reported Reaction Date of Last Stent Placement:: 2022 Past Psychological History: No Psychological Hx Reported Smoking Status: Current every day smoker Past Alcohol Use History: None Reported Past Drug Use History: None Reported Medications and Allergies Home Medications Medication Instructions Recorded Confirmed Type Atorvastatin [Lipitor] 40 mg PO DAILY 08/16/22 09/23/24 History Furosemide [Lasix] 80 mg PO DAILY 08/16/22 09/23/24 History Losartan [Cozaar] 50 mg PO DAILY 08/16/22 09/23/24 History Metoprolol Succinate [Toprol XL] 50 mg PO DAILY 08/16/22 09/23/24 History Nitroglycerin Sl Tabs [Nitrostat] 0.4 mg SL Q5M PRN 08/16/22 09/23/24 History Pantoprazole [Protonix] 40 mg PO DAILY 08/16/22 09/23/24 History amLODIPine [Norvasc] 10 mg PO DAILY 08/16/22 09/23/24 History oxyCODONE-APAP 10-325MG [Percocet 1 tab PO Q4H 08/16/22 09/23/24 History 10-325 mg] Aspirin EC [Ecotrin Low Dose] 81 mg PO DAILY 09/23/24 09/23/24 History Clopidogrel [Plavix] 75 mg PO DAILY 09/23/24 09/23/24 History Dapagliflozin Propanediol [Farxiga] 10 mg PO DAILY 09/23/24 09/23/24 History Ergocalciferol (Vitamin D2) 1,250 mcg PO TH 09/23/24 09/23/24 History [Drisdol (GEQ) 1,250 MCG (50,000 IU)] Isosorbide Mononitrate ER [Imdur] 30 mg PO DAILY 09/23/24 09/23/24 History Spironolactone [Aldactone] 25 mg PO DAILY 09/23/24 09/23/24 History metFORMIN HCL ER [Glucophage XR] 500 mg PO DAILY 09/23/24 09/23/24 History Allergies Allergy/AdvReac Type Severity Reaction Status Date / Time cephalexin [From Keflex] AdvReac Nausea & Verified 09/23/24 16:24 Vomiting & Diarrhea Physical Exam Vitals: Vital Signs Temp Pulse Pulse Resp BP BP Pulse Ox 09/24/24 07:04 97.5 F L 66 16 149/88 97 09/24/24 01:35 97.5 F L 69 16 162/93 96 09/23/24 18:38 97.7 F 72 18 155/92 97 09/23/24 18:25 73 18 149/92 97 09/23/24 17:30 98 F 69 16 137/87 97 09/23/24 17:14 73 18 141/90 97 09/23/24 14:45 71 18 150/95 97 09/23/24 12:01 97.7 F 86 20 144/83 97 Intake and Output 09/23/24 09/24/24 09/24/24 22:59 06:59 14:59 Intake Total 590 Balance 590 Intake: Oral 590 Other: Voiding Method Toilet # Voids 2 Weight 102.421 kg - Constitutional General appearance: average body habitus, cooperative, no acute distress - EENT Eyes: anicteric sclerae, EOMI ENT: hearing grossly normal, normal oropharynx - Neck Neck: no lymphadenopathy - Respiratory Respiratory: bilateral: CTA - Cardiovascular Rhythm: regular Heart sounds: normal: S1, S2 Abnormal Heart Sounds: no systolic murmur, no diastolic murmur, no rub, no S3 Gallop, no S4 Gallop, no click, no other leg Peripheral Edema: bilateral: 1+ - Gastrointestinal General gastrointestinal: no absent bowel sounds, decreased bowel sounds, distended, hepatomegaly, no hyperactive bowel sounds, no normal bowel sounds, no organomegaly, no rigid, no scaphoid, soft, no splenomegaly, no tenderness, no umbilical hernia, no ventral hernia - Integumentary Integumentary: normal - Neurologic Neurologic: CNII-XII intact - Musculoskeletal Musculoskeletal: generalized weakness, strength equal bilaterally - Psychiatric Psychiatric: A&O x's 3, appropriate affect, intact judgment & insight Results CBC & Chem 7: 09/24/24 02:39 09/24/24 02:39 Labs: Abnormal Lab Results - Last 24 Hours (Table) 09/23/24 09/23/24 09/23/24 Range/Units 12:22 12:22 13:21 WBC 16.45 H 16.47 H (4.50-10.00) 10*3/uL RBC (4.40-5.60) 10*6/uL Hgb (13.0-17.0) g/dL Hct (39.6-50.0) % RDW (11.5-14.5) % Immature Gran # 0.31 H 0.22 H (0.00-0.04) 10*3/uL Neutrophils # 12.70 H 12.87 H (1.80-7.70) 10*3/uL Monocytes # 2.05 H 1.99 H (0.20-1.00) 10*3/uL Eosinophils # 0.03 L 0.03 L (0.04-0.35) 10*3/uL INR (<1.2) Sodium 134 L (137-145) mmol/L Potassium (3.5-5.1) mmol/L Chloride 93 L (98-107) mmol/L BUN 54 H (9-20) mg/dL Creatinine 1.94 H (0.66-1.25) mg/dL Glucose 161 H (74-99) mg/dL POC Glucose (mg/dL) (70-110) mg/dL Hemoglobin A1c (<=6.0) % Plasma Lactic Acid Tomás (0.7-2.0) mmol/L Total Bilirubin 2.0 H (0.2-1.3) mg/dL Total Protein 6.0 L (6.3-8.2) g/dL Albumin 3.2 L (3.5-5.0) g/dL Ur Specific Scammon (1.001-1.035) Urine Protein (Negative) Hyaline Casts (0-2) /lpf Urine Mucus (None) /hpf 09/23/24 09/23/24 09/23/24 Range/Units 13:21 13:21 14:55 WBC (4.50-10.00) 10*3/uL RBC (4.40-5.60) 10*6/uL Hgb (13.0-17.0) g/dL Hct (39.6-50.0) % RDW (11.5-14.5) % Immature Gran # (0.00-0.04) 10*3/uL Neutrophils # (1.80-7.70) 10*3/uL Monocytes # (0.20-1.00) 10*3/uL Eosinophils # (0.04-0.35) 10*3/uL INR (<1.2) Sodium 132 L (137-145) mmol/L Potassium 5.5 H (3.5-5.1) mmol/L Chloride 94 L (98-107) mmol/L BUN 56 H (9-20) mg/dL Creatinine 1.83 H (0.66-1.25) mg/dL Glucose 160 H (74-99) mg/dL POC Glucose (mg/dL) (70-110) mg/dL Hemoglobin A1c (<=6.0) % Plasma Lactic Acid Tomás 5.0 H* (0.7-2.0) mmol/L Total Bilirubin 2.3 H (0.2-1.3) mg/dL Total Protein 6.2 L (6.3-8.2) g/dL Albumin 3.2 L (3.5-5.0) g/dL Ur Specific [place] 1.036 H (1.001-1.035) Urine Protein 1+ H (Negative) Hyaline Casts 4 H (0-2) /lpf Urine Mucus Rare H (None) /hpf 09/23/24 09/23/24 09/23/24 Range/Units 16:12 17:18 17:30 WBC (4.50-10.00) 10*3/uL RBC (4.40-5.60) 10*6/uL Hgb (13.0-17.0) g/dL Hct (39.6-50.0) % RDW (11.5-14.5) % Immature Gran # (0.00-0.04) 10*3/uL Neutrophils # (1.80-7.70) 10*3/uL Monocytes # (0.20-1.00) 10*3/uL Eosinophils # (0.04-0.35) 10*3/uL INR (<1.2) Sodium (137-145) mmol/L Potassium (3.5-5.1) mmol/L Chloride (98-107) mmol/L BUN (9-20) mg/dL Creatinine (0.66-1.25) mg/dL Glucose (74-99) mg/dL POC Glucose (mg/dL) 138 H (70-110) mg/dL Hemoglobin A1c 6.7 H (<=6.0) % Plasma Lactic Acid Tomás 4.5 H* (0.7-2.0) mmol/L Total Bilirubin (0.2-1.3) mg/dL Total Protein (6.3-8.2) g/dL Albumin (3.5-5.0) g/dL Ur Specific [place] (1.001-1.035) Urine Protein (Negative) Hyaline Casts (0-2) /lpf Urine Mucus (None) /hpf 09/23/24 09/23/24 09/23/24 Range/Units 17:42 17:42 19:53 WBC (4.50-10.00) 10*3/uL RBC (4.40-5.60) 10*6/uL Hgb (13.0-17.0) g/dL Hct (39.6-50.0) % RDW (11.5-14.5) % Immature Gran # (0.00-0.04) 10*3/uL Neutrophils # (1.80-7.70) 10*3/uL Monocytes # (0.20-1.00) 10*3/uL Eosinophils # (0.04-0.35) 10*3/uL INR 1.2 H (<1.2) Sodium (137-145) mmol/L Potassium (3.5-5.1) mmol/L Chloride (98-107) mmol/L BUN (9-20) mg/dL Creatinine (0.66-1.25) mg/dL Glucose (74-99) mg/dL POC Glucose (mg/dL) (70-110) mg/dL Hemoglobin A1c (<=6.0) % Plasma Lactic Acid Tomás 3.8 H* (0.7-2.0) mmol/L Total Bilirubin 1.7 H (0.2-1.3) mg/dL Total Protein (6.3-8.2) g/dL Albumin (3.5-5.0) g/dL Ur Specific [place] (1.001-1.035) Urine Protein (Negative) Hyaline Casts (0-2) /lpf Urine Mucus (None) /hpf 09/23/24 09/23/24 09/24/24 Range/Units 20:17 22:52 02:39 WBC 14.34 H (4.50-10.00) 10*3/uL RBC 4.20 L (4.40-5.60) 10*6/uL Hgb 11.7 L (13.0-17.0) g/dL Hct 35.9 L (39.6-50.0) % RDW 15.1 H (11.5-14.5) % Immature Gran # (0.00-0.04) 10*3/uL Neutrophils # (1.80-7.70) 10*3/uL Monocytes # (0.20-1.00) 10*3/uL Eosinophils # (0.04-0.35) 10*3/uL INR (<1.2) Sodium (137-145) mmol/L Potassium (3.5-5.1) mmol/L Chloride (98-107) mmol/L BUN (9-20) mg/dL Creatinine (0.66-1.25) mg/dL Glucose (74-99) mg/dL POC Glucose (mg/dL) 124 H (70-110) mg/dL Hemoglobin A1c (<=6.0) % Plasma Lactic Acid Tomás 3.2 H* (0.7-2.0) mmol/L Total Bilirubin (0.2-1.3) mg/dL Total Protein (6.3-8.2) g/dL Albumin (3.5-5.0) g/dL Ur Specific Sc[place] (1.001-1.035) Urine Protein (Negative) Hyaline Casts (0-2) /lpf Urine Mucus (None) /hpf 09/24/24 09/24/24 09/24/24 Range/Units 02:39 02:39 06:42 WBC (4.50-10.00) 10*3/uL RBC (4.40-5.60) 10*6/uL Hgb (13.0-17.0) g/dL Hct (39.6-50.0) % RDW (11.5-14.5) % Immature Gran # (0.00-0.04) 10*3/uL Neutrophils # (1.80-7.70) 10*3/uL Monocytes # (0.20-1.00) 10*3/uL Eosinophils # (0.04-0.35) 10*3/uL INR (<1.2) Sodium 132 L (137-145) mmol/L Potassium (3.5-5.1) mmol/L Chloride (98-107) mmol/L BUN 54 H (9-20) mg/dL Creatinine 1.63 H (0.66-1.25) mg/dL Glucose 116 H (74-99) mg/dL POC Glucose (mg/dL) (70-110) mg/dL Hemoglobin A1c (<=6.0) % Plasma Lactic Acid Tomás 2.6 H* 2.2 H* (0.7-2.0) mmol/L Total Bilirubin (0.2-1.3) mg/dL Total Protein (6.3-8.2) g/dL Albumin (3.5-5.0) g/dL Ur Specific Sc[place] (1.001-1.035) Urine Protein (Negative) Hyaline Casts (0-2) /lpf Urine Mucus (None) /hpf 09/24/24 Range/Units 07:09 WBC (4.50-10.00) 10*3/uL RBC (4.40-5.60) 10*6/uL Hgb (13.0-17.0) g/dL Hct (39.6-50.0) % RDW (11.5-14.5) % Immature Gran # (0.00-0.04) 10*3/uL Neutrophils # (1.80-7.70) 10*3/uL Monocytes # (0.20-1.00) 10*3/uL Eosinophils # (0.04-0.35) 10*3/uL INR (<1.2) Sodium (137-145) mmol/L Potassium (3.5-5.1) mmol/L Chloride (98-107) mmol/L BUN (9-20) mg/dL Creatinine (0.66-1.25) mg/dL Glucose (74-99) mg/dL POC Glucose (mg/dL) 118 H (70-110) mg/dL Hemoglobin A1c (<=6.0) % Plasma Lactic Acid Tomás (0.7-2.0) mmol/L Total Bilirubin (0.2-1.3) mg/dL Total Protein (6.3-8.2) g/dL Albumin (3.5-5.0) g/dL Ur Specific Sc[place] (1.001-1.035) Urine Protein (Negative) Hyaline Casts (0-2) /lpf Urine Mucus (None) /hpf CT scan - abdomen: report reviewed, image reviewed CT scan - pelvis: report reviewed, image reviewed Assessment and Plan (1) Liver masses Current Visit: Yes Status: Acute Priority: High Code(s): R16.0 - HEPATOMEGALY, NOT ELSEWHERE CLASSIFIED SNOMED Code(s): 841624814 (2) Ascites Current Visit: Yes Status: Acute Priority: High Code(s): R18.8 - OTHER ASCITES SNOMED Code(s): 374850150 (3) Nausea and vomiting Current Visit: Yes Status: Acute Priority: High Code(s): R11.2 - NAUSEA WITH VOMITING, UNSPECIFIED SNOMED Code(s): 50123570 (4) Unintentional weight loss Current Visit: Yes Status: Acute Priority: High Code(s): R63.4 - ABNORMAL WEIGHT LOSS SNOMED Code(s): 716191964 (5) Chronic hiccups Current Visit: Yes Status: Acute Priority: High Code(s): R06.6 - HICCOUGH SNOMED Code(s): 685752438 Plan: Unintentional weight loss, liver lesions and LAD on imaging, intractable nausea and vomiting. -Reviewed with patient and concerning findings on imaging. They are agreeable to additional work up - Either liver biopsy or diagnostic paracentesis recommended to obtain diagnosis. Interventional radiology has already been consulted. Pending cytology/biopsy results -Ca19.9, CEA ordered Intractable hiccups -Likely secondary to irritation from LAD in gastrohepatic area - Thorazine ordered to try and quell intractable hiccups N,V -Antiemetics, ordered. Doctor attests: I performed a history and physical examination of this patient, developed impression and plan of care. Discussed with dictator. I agree with dictators note, documented as a scribe.
[2024-09-24 17:05] LABS: Glucose,Whole Blood 129 mg/dL (70-110)
[2024-09-24 19:46] LABS: Glucose,Whole Blood 120 mg/dL (70-110)
[2024-09-25 05:49] LABS: HCT 32.9 % (39.6-50.0); HGB 10.7 g/dL (13.0-17.0); MCH 28.3 pg (27.0-32.0); MCHC 32.5 g/dL (32.0-37.0); Mean Platelet Volume 10.9 fL (9.5-12.2); Platelet Count 234 10*3/uL (140-440); RBC 3.78 10*6/uL (4.40-5.60); RDW 14.8 % (11.5-14.5); WBC 12.78 10*3/uL (4.50-10.00)
[2024-09-25 06:02] LABS: African American GFR (CKD) 38 (>60 ml/min/1.73 sqM); Anion Gap 10 mmol/L; Blood Urea Nitrogen 56 mg/dL (9-20); Calcium 8.4 mg/dL (8.4-10.2); Carbon Dioxide 23 mmol/L (22-30); Chloride 96 mmol/L (98-107); Glucose 118 mg/dL (74-99); Non-African American GFR(CKD) 33 (>60 ml/min/1.73 sqM); Potassium 4.1 mmol/L (3.5-5.1); Sodium 129 mmol/L (137-145)
[2024-09-25 07:16] LABS: Glucose,Whole Blood 134 mg/dL (70-110)
--- NOTE | 2024-09-25 09:42 | US ---
EXAMINATION TYPE: US abdomen limited DATE OF EXAM: 09/25/2024 9:27 AM SITE: [facility] CLINICAL INDICATION: Male, 74 years old with history of ascites; , H COMPARISON: 09/23/2024. . TECHNIQUE: Limited exam of the grayscale and color doppler ultrasound images of the abdomen obtained utilizing t ransabdominal imaging. FINDINGS: Four-quadrant evaluation for ascites demonstrates moderate amount of ascites throughout the abdomen. IMPRESSION: Moderate ascites. [facility], , 09/25/2024 9:40 AM
--- NOTE | 2024-09-25 11:18 | US ---
EXAMINATION TYPE: US paracentesis abd w/image DATE OF EXAM: 09/25/2024 10:33 AM COMPARISON: None. Previous Paracentesis CLINICAL INDICATION: Male, 74 years old with history of Ascites; , ascites TECHNIQUE/FINDINGS: The procedure was discussed with the patient. The risks, complications, benefits, and alternatives we re discussed and any questions were answered. Informed consent was obtained. The patient was placed s upine on the ultrasound table and prepped and draped in the usual sterile fashion. All elements of maximal barrier technique were utilized. Under ultrasound guidance, access into the right lower quadrant was obtained, via the paracentesis catheter system and direct ultrasound guidanc e. Approximately 2.5 liters of blood-tinged serous fluid was removed. The patient was stable throughout the procedure and remained stable upon discharge from Department of Radiology. Sample sent to david davila for analysis. IMPRESSION: Successful paracentesis under ultrasound guidance. [facility], , 09/25/2024 11:15 AM
[2024-09-25 12:37] LABS: Glucose,Whole Blood 139 mg/dL (70-110)
--- NOTE | 2024-09-25 12:40 | P.PN ---
Subjective Progress Note Date: 09/25/24 Principal diagnosis: Liver cirrhosis, liver lesions This a pleasant 74-year-old male with a history of obesity, diabetes mellitus, hypertension, coronary artery disease with multiple cardiac stents, daily smoker who presented to the emergency department with complaints of abdominal pain, decreased appetite, hiccups and occasional vomiting/spitting up mucus. States he has been having abdominal pain from the epigastric region all the way down to the lower abdomen for the last 2 weeks. States all of his symptoms started about 2 weeks ago after having some hot flashes then he started having decreased appetite abdominal pain chronic hiccups which then lead him into like a dry heaving and spitting up mucousy phlegm. He has decreased appetite with a 20 pound weight loss over the last 2 weeks duration. He had a CT of the abdomen pelvis reporting multiple liver masses in L3 L5 osseous lesions. He has a past medical history of significant alcohol abuse greater than 15 years where he states he drank very heavy daily. Still drinks on occasion. Was diagnosed with liver cirrhosis 4 to 5 years ago at [facility]. States he had workup there with an EGD colonoscopy with Dr. Ibanez. They were following him for liver cirrhosis and liver mass/cyst which he states he was told was nothing to worry about. Gastroenterology was consulted for liver cirrhosis and possible GI bleed. Patient currently has hiccups. He has some phlegmy emesis in his basin which is clear with a little dark speck. Complains still of abdominal pain across his entire abdomen. States he has not followed with his legal administrative assistant in a couple years because he has moved. Admitting labs WBC 16.4 hemoglobin 13 platelet count 301,000 INR 1.2 sodium 132 potassium 5.5 BUN 56 creatinine 1.8 lactic acid 3.2 total bilirubin 1.7 conjugated 0.0 unconjugated 0.9 AST 36 ALT 12 alkaline phosphatase 72 amylase 35 lipase 82 AFP tumor marker less than 3 Upper endoscopy from 09/26/[address] Johnston reports irregular Z-line, duodenitis. Pathology reports squamous and glandular mucosa with intestinal metaplasia consistent with Medrano's esophagus Colonoscopy from 09/26/[address] Ibanez reports small cecal polyp status post snare polypectomy, small transverse colon polyp status post cold snare polypectomy, small sigmoid polyp status post cold snare polypectomy, few scattered sigmoid diverticula, internal hemorrhoids. Pathology reports tubular adenoma. 09/25/2024 Patient seen and examined today as a follow-up. No acute changes through the night. Underwent paracentesis today with 2.8 L removed sent for fluid studies and cytology. Was notified interventional radiologist states he cannot do liver biopsy due to location. CA 19-9 antigen 2078 Objective - Vital Signs Vital signs: Vital Signs Temp 97.6 F 09/25/24 07:12 Pulse 73 09/25/24 07:12 Resp 18 09/25/24 07:12 BP 121/69 09/25/24 07:12 Pulse Ox 95 09/25/24 07:12 FiO2 Intake & Output 09/24/24 09/25/24 09/25/24 18:59 06:59 18:59 Intake Total 1080 250 Output Total 400 Balance 680 250 Weight 102.421 kg Intake: Oral 1080 250 Output: Urine 400 Other: Voiding Method Urinal Urinal # Voids 0 - Exam General appearance: The patient is alert, oriented, appears in no acute distress. HET: Head is normocephalic and atraumatic. Conjunctiva pink. Sclera anicteric. Neck: Supple without lymphadenopathy. Trachea midline. Heart: Regular. Lungs: Equal expansion, normal respiratory effort. Abdomen: Soft, diffuse abdominal tenderness, ascites, obese, nondistended. Skin: No rashes. No jaundice. Extremities: Normal skin color and turgor. No pedal edema. Neurological: No focal deficits. Alert and oriented x3. - Labs CBC & Chem 7: 09/25/24 05:34 09/25/24 05:34 Labs: Abnormal Lab Results - Last 24 Hours (Table) 09/23/24 09/24/24 09/24/24 Range/Units 13:21 09:31 11:47 WBC (4.50-10.00) 10*3/uL RBC (4.40-5.60) 10*6/uL Hgb (13.0-17.0) g/dL Hct (39.6-50.0) % RDW (11.5-14.5) % Sodium (137-145) mmol/L Chloride (98-107) mmol/L BUN (9-20) mg/dL Creatinine (0.66-1.25) mg/dL Glucose (74-99) mg/dL POC Glucose (mg/dL) 124 H (70-110) mg/dL CA 19-9 Antigen 2079.0 H (0.0-34.9) U/mL Total PSA 7.3 H (<=4.0) ng/mL 09/24/24 09/24/24 09/25/24 Range/Units 16:58 19:44 05:34 WBC 12.78 H (4.50-10.00) 10*3/uL RBC 3.78 L (4.40-5.60) 10*6/uL Hgb 10.7 L (13.0-17.0) g/dL Hct 32.9 L (39.6-50.0) % RDW 14.8 H (11.5-14.5) % Sodium (137-145) mmol/L Chloride (98-107) mmol/L BUN (9-20) mg/dL Creatinine (0.66-1.25) mg/dL Glucose (74-99) mg/dL POC Glucose (mg/dL) 129 H 120 H (70-110) mg/dL CA 19-9 Antigen (0.0-34.9) U/mL Total PSA (<=4.0) ng/mL 09/25/24 09/25/24 Range/Units 05:34 07:15 WBC (4.50-10.00) 10*3/uL RBC (4.40-5.60) 10*6/uL Hgb (13.0-17.0) g/dL Hct (39.6-50.0) % RDW (11.5-14.5) % Sodium 129 L (137-145) mmol/L Chloride 96 L (98-107) mmol/L BUN 56 H (9-20) mg/dL Creatinine 1.94 H (0.66-1.25) mg/dL Glucose 118 H (74-99) mg/dL POC Glucose (mg/dL) 134 H (70-110) mg/dL CA 19-9 Antigen (0.0-34.9) U/mL Total PSA (<=4.0) ng/mL Microbiology - Last 24 Hours (Table) 09/23/24 18:17 Blood Culture - Preliminary Blood Assessment and Plan (1) Hepatic cirrhosis Narrative/Plan: 74-year-old male presenting with abdominal pain, nausea vomiting which she reports more as spitting up mucus and secretions after chronic hiccups with known history of liver cirrhosis secondary to alcohol abuse diagnosed about 4 to 5 years ago. Patient has not recently followed up with his legal administrative assistant secondary to moving closer to this area. Apparently patient had workup 2 to 3 years ago for liver cirrhosis and liver cysts/lesions. Reports were able to be requested and reviewed from previous CT of the abdomen pelvis with IV contrast in 2021 reporting nodular contour of the liver scattered hepatic hypodensities too small to characterize 8 mm enhancing lesion along the anterior right hepatic lobe recommending MRI. MRI dated 10/05/2022 with and without contrast reporting enhancing nodular focus interlobar portion of the liver. Demonstrates washout indeterminant for malignancy. Advise biopsy. Progressive endplate deformity altered signal intensity mostly involving the superior endplate of L4, active Schmorl's node favored. Correlate with symptoms. Paracentesis completed with 2.8 L removed. Fluid studies sent and cytology. Currently pending. Current Visit: Yes Status: Acute Code(s): K74.60 - UNSPECIFIED CIRRHOSIS OF LIVER SNOMED Code(s): 84787153 (2) History of alcohol abuse Current Visit: Yes Status: Acute Code(s): F10.11 - ALCOHOL ABUSE, IN REMISSION SNOMED Code(s): 840943287 (3) Unintentional weight loss Current Visit: Yes Status: Acute Priority: High Code(s): R63.4 - ABNORMAL WEIGHT LOSS SNOMED Code(s): 942551181 (4) Abdominal pain Current Visit: Yes Status: Acute Code(s): R10.9 - UNSPECIFIED ABDOMINAL PAIN SNOMED Code(s): 95355430 (5) Ascites Current Visit: Yes Status: Acute Priority: High Code(s): R18.8 - OTHER ASCITES SNOMED Code(s): 842211344 (6) Nausea and vomiting Current Visit: Yes Status: Acute Priority: High Code(s): R11.2 - NAUSEA WITH VOMITING, UNSPECIFIED SNOMED Code(s): 86416664 (7) Chronic hiccups Current Visit: Yes Status: Acute Priority: High Code(s): R06.6 - HICCOUGH SNOMED Code(s): 795352650 (8) Liver masses Narrative/Plan: Interventional radiology consulted for liver biopsy however states that they cannot complete biopsy second to location. Current Visit: Yes Status: Acute Priority: High Code(s): R16.0 - HEPATOMEGALY, NOT ELSEWHERE CLASSIFIED SNOMED Code(s): 162904371 Plan: 1. Continue symptomatic and supportive care 2. Diet as tolerated 3. Continue Thorazine for hiccups 4. Protonix 40 mg twice daily 5. Patient is status post paracentesis 6. Recommend complete alcohol abstinence 7. Records requested from [facility], CT scans and MRI as well as EGD and colonoscopy received and reviewed 8. IR consulted for liver biopsy, however they state that they cannot complete percutaneous secondary to location 9. Oncology on consultation, appreciate their recommendations 10. No plans on endoscopic evaluation. Follow-up with gastroenterology in 2 weeks. Thank you for allowing us to participate in the care of the patient, the GI service will sign off, gastroenterology will not be available at the hospital this weekend and through next week. If further evaluation by gastroenterology is required the patient will need transfer as per the primary team's discretion. Dr. Domonique Jorgensen I agree with the dictator's note, documented as a scribe by Sherin De.
--- NOTE | 2024-09-25 12:59 | P.PN ---
Subjective Progress Note Date: 09/25/24 Principal diagnosis: Hospital course: Patient is a 74 year old male with Coronary artery disease s/p stent placement, diabetes mellitus, hyperlipidemia, hypertension, tobacco dependence presented to the ED with abdominal pain. Patient reports helping his friend with some patio work 2 weeks ago when he started having hot flashes. He then had abdominal pain associated with vomiting. 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 He mention he lost 20 pounds in the last week and a half. He mentions that he usually drinks a lot of water but lately has only had a glass of water a day and has had decreased appetite. He also has soft stools, but denies diarrhea. Additionally, he reports having a low stream of urine that he attributes to his BPH.He mentions following up with consolidation accountant and director of quality in the past but hasn't seen them in quite some time lately. He did have an MRI of the abdomen a few years ago at [facility] in [place]. He has also had some surgery for twisted bowel years ago. He is a current everyday smoker, smoking since he was 14. He was drinking alcohol in the past but quit when he was 49. Moreover he reports having a headache and eye pain, but mentions that its similar to the migraines he used to have in the past. Abdomen pelvis CT done in 2022 shows no evidence for acute process, hepatic cirrhosis evidence of portal hypertension splenomegaly, scattered hepatic hypodense lesions. Appearance of the attending indicates a 500, prostatomegaly, chronic diverticulosis, bilateral fat-containing inguinal hernias. Denies fever, chills, shortness of breath, cough, chest pain, palpitations, hematuria, dysuria, hematochezia, melena, slurred speech, numbness, tingling, lightheadedness, blurred vision, double vision. ED documentation reviewed. In the ED patient was treated with Dilaudid, Zofran, lactated Ringer. 09/24/24: Patient is seen and examined at bedside today. Last night he reported 10/10 pain, home med Percocet was resumed and he wished to be made No code. He notes slight improvement in pain today. 09/25/24: Patient evaluated at bedside today. He reports improvement in the epigastric pain. Patient underwent paracentesis today and 2.5 L was removed. Review of systems: Pertinent positives and negatives as discussed in HPI, a complete review of systems was performed and all other systems are negative. Vitals: Signs Reviewed, SpO2 95% on 2L oxygen via NC Physical examination: General: nontoxic, no distress, appears at stated age Derm: warm, dry, intact Head: atraumatic, normocephalic, symmetric Eyes: EOMI, anicteric sclera Mouth: no lip lesion, mucus membranes moist Cardiovascular: S1 S2 reg, no murmur Lungs: CTA bilateral, no rhonchi, no rales, no accessory muscle use Abdominal: soft, non-tender to palpation Extremities: No cyanosis, clubbing, or pedal edema. Neuro: Alert, Oriented, Gross neurological examination did not reveal any focal deficits. Psych: well appearing, appropriate affect Data Reviewed Today: Labs: WBC 12.78, hemoglobin 10.7, sodium 129, BUN 56, creatinine 1.94, glucose 134 CEA antigen < 2, CA 19-9 antigen 2079, total PSA 7.3, free PSA 1.63 Acute hepatitis panel is negative Microbio: Blood culture shows no growth after 24 hours Imaging: Abdomen ultrasound shows moderate ascites Assessment/Plan: Patient is a 74 year old male with Coronary artery disease s/p stent placement, diabetes mellitus, hyperlipidemia, hypertension, tobacco dependence presented to the ED with abdominal pain. Active: #. Abdominal pain #. Ascites #. Sepsis #. History of Liver cirrhosis #. Possible Hepatic neoplasm with metastasis #. Possible upper GI bleed #. Possible SBP #. Leukocytosis, secondary to above, improving #. S/p paracentesis, 2.5 L removed Abdomen/pelvis CT shows multiple hypodense masses of the caudate lobe of the liliya er with lobular masses scattered within the gastrohepatic ligament, omentum and upper mesentery, Findings suspicious for hepatic neoplasm with marked metastatic disease. Stable changes of cirrhotic liver. Interval development of moderate ascites. Stable osseous lesions involving L3 and L5 and S1, possibly metastatic disease Total bilirubin 1.7, Conjugated bili 0, Unconjugated bili 0.9, AFP <3, CEA antigen < 2, CA 19-9 antigen 2079, , Acute hepatitis panel is negative Continue Protonix 40 mg IV BID and Ceftriaxone 2 gm IVPB Q24HR Paracentesis and ascitic fluid tests ordered Received Dilaudid in the ED, Home med Percocet was resumed overnight Monitor CBC and BMP Oncology is following GI is following, recommend No plans on endoscopic evaluation at this time IR consulted for paracentesis #. Intractable hiccups Likely secondary to irritation from LAD in gastrohepatic area Started on Chlorpromazine 25 mg PO Q6HR PRN #. AMINATA on CKD, worsening #. Possible Hepatorenal syndrome #. Hypervolemic Hyponatremia, worsening UA shows specific gravity 1.036, 1+ protein, 4 hyaline casts, rare mucus Received 1L LR bolus IV fluids discontinued Monitor BMP Nephrology consulted #. Type II Diabetes mellitus A1c 6.7 Insulin sliding scale and ACHS blood glucose monitoring Monitor for hypoglycemia Hold home med metformin #. Nausea and vomiting Continue Zofran 4 mg IVP Q6HR PRN #. Type B Lactic acidosis, improving Received 1L LR bolus Trend lactate #. Prostatic hypertrophy #. History of BPH Abdomen pelvic CT shows Moderate prostatic hypertrophy total PSA 7.3, free PSA 1.63 Continue home med Tadalafil 10 mg PO daily Monitor urine output #. Hyperkalemia, resolved Chronic: #. Hypertension #. Hyperlipidemia #. CAD S/p multiple stents #. GERD Continue home meds amlodipine 10 mg p.o. daily, atorvastatin 40 mg p.o. daily, Imdur 30 mg p.o. daily, losartan 50 mg p.o. daily, metoprolol 50 mg p.o. daily Plavix held for possible upper GI bleed, Farxiga held for renal function F: None E: Replete as required N: Consistent carbohydrate diet A: Ambulatory DVT prophylaxis: Not indicated GI prophylaxis: Pantoprazole 40 mg IV BID Code status: NO CODE Anticipated discharge place: Pending clinical course Anticipated discharge time: Pending clinical course Dictation was produced using [employer] dictation software. please excuse any grammatical, word or spelling errors. Nuzhat Bustos MD PGY-1 IM I saw and evaluated the patient during the layton and critical portions of this encounter, and discussed the case in detail with the resident author of this note, I agree with the Assessment and Plan, and my changes, if any, are highlighted in blue. Objective - Vital Signs Vital signs: Vital Signs Temp 97.6 F 09/25/24 07:12 Pulse 73 09/25/24 07:12 Resp 18 09/25/24 07:12 BP 121/69 09/25/24 07:12 Pulse Ox 95 09/25/24 07:12 FiO2 Intake & Output 09/24/24 09/25/24 09/25/24 18:59 06:59 18:59 Intake Total 1080 250 Output Total 400 Balance 680 250 Weight 102.421 kg Intake: Oral 1080 250 Output: Urine 400 Other: Voiding Method Urinal Urinal # Voids 0 - Labs CBC & Chem 7: 09/25/24 05:34 09/25/24 05:34 Labs: Abnormal Lab Results - Last 24 Hours (Table) 09/23/24 09/24/24 09/24/24 Range/Units 13:21 09:31 11:47 WBC (4.50-10.00) 10*3/uL RBC (4.40-5.60) 10*6/uL Hgb (13.0-17.0) g/dL Hct (39.6-50.0) % RDW (11.5-14.5) % Sodium (137-145) mmol/L Chloride (98-107) mmol/L BUN (9-20) mg/dL Creatinine (0.66-1.25) mg/dL Glucose (74-99) mg/dL POC Glucose (mg/dL) 124 H (70-110) mg/dL CA 19-9 Antigen 2079.0 H (0.0-34.9) U/mL Total PSA 7.3 H (<=4.0) ng/mL 09/24/24 09/24/24 09/25/24 Range/Units 16:58 19:44 05:34 WBC 12.78 H (4.50-10.00) 10*3/uL RBC 3.78 L (4.40-5.60) 10*6/uL Hgb 10.7 L (13.0-17.0) g/dL Hct 32.9 L (39.6-50.0) % RDW 14.8 H (11.5-14.5) % Sodium (137-145) mmol/L Chloride (98-107) mmol/L BUN (9-20) mg/dL Creatinine (0.66-1.25) mg/dL Glucose (74-99) mg/dL POC Glucose (mg/dL) 129 H 120 H (70-110) mg/dL CA 19-9 Antigen (0.0-34.9) U/mL Total PSA (<=4.0) ng/mL 09/25/24 09/25/24 Range/Units 05:34 07:15 WBC (4.50-10.00) 10*3/uL RBC (4.40-5.60) 10*6/uL Hgb (13.0-17.0) g/dL Hct (39.6-50.0) % RDW (11.5-14.5) % Sodium 129 L (137-145) mmol/L Chloride 96 L (98-107) mmol/L BUN 56 H (9-20) mg/dL Creatinine 1.94 H (0.66-1.25) mg/dL Glucose 118 H (74-99) mg/dL POC Glucose (mg/dL) 134 H (70-110) mg/dL CA 19-9 Antigen (0.0-34.9) U/mL Total PSA (<=4.0) ng/mL Microbiology - Last 24 Hours (Table) 09/23/24 18:17 Blood Culture - Preliminary Blood
[2024-09-25 16:29] LABS: Appearance,BF Grossly Bloody (Clear)
[2024-09-25 17:01] LABS: Glucose,Whole Blood 131 mg/dL (70-110)
--- NOTE | 2024-09-25 18:24 | P.PN ---
Subjective Progress Note Date: 09/25/24 No acute events overnight. Reporting feeling improved. N/v subsided, reporting pain is controlled on current regimen. S/p paracentesis today with 2.5L removed, states feeling improvement in distention and abd pressure. Tolerating oral intake, but is only drinking fluids, apple sauce, and ensure at this time. Objective - Vital Signs Vital signs: Vital Signs Temp 97.6 F 09/25/24 11:42 Pulse 96 09/25/24 11:42 Resp 16 09/25/24 11:42 BP 93/62 09/25/24 11:42 Pulse Ox 96 09/25/24 11:15 FiO2 Intake & Output 09/24/24 09/25/24 09/25/24 18:59 06:59 18:59 Intake Total 1080 250 Output Total 400 Balance 680 250 Weight 102.421 kg Intake: Oral 1080 250 Output: Urine 400 Other: Voiding Method Urinal Urinal Urinal # Voids 0 - Constitutional General appearance: Present: no acute distress - EENT Eyes: Present: EOMI ENT: Present: hearing grossly normal - Respiratory Details: breathing is even and unlabored - Cardiovascular Details: skin warm and dry - Gastrointestinal General gastrointestinal: Present: soft. Absent: tenderness - Musculoskeletal Musculoskeletal: Present: generalized weakness - Psychiatric Psychiatric: Present: A&O x's 3 - Labs CBC & Chem 7: 09/25/24 05:34 09/25/24 05:34 Labs: Abnormal Lab Results - Last 24 Hours (Table) 09/23/24 09/24/24 09/24/24 Range/Units 13:21 09:31 16:58 WBC (4.50-10.00) 10*3/uL RBC (4.40-5.60) 10*6/uL Hgb (13.0-17.0) g/dL Hct (39.6-50.0) % RDW (11.5-14.5) % Sodium (137-145) mmol/L Chloride (98-107) mmol/L BUN (9-20) mg/dL Creatinine (0.66-1.25) mg/dL Glucose (74-99) mg/dL POC Glucose (mg/dL) 129 H (70-110) mg/dL CA 19-9 Antigen 2079.0 H (0.0-34.9) U/mL Total PSA 7.3 H (<=4.0) ng/mL 09/24/24 09/25/24 09/25/24 Range/Units 19:44 05:34 05:34 WBC 12.78 H (4.50-10.00) 10*3/uL RBC 3.78 L (4.40-5.60) 10*6/uL Hgb 10.7 L (13.0-17.0) g/dL Hct 32.9 L (39.6-50.0) % RDW 14.8 H (11.5-14.5) % Sodium 129 L (137-145) mmol/L Chloride 96 L (98-107) mmol/L BUN 56 H (9-20) mg/dL Creatinine 1.94 H (0.66-1.25) mg/dL Glucose 118 H (74-99) mg/dL POC Glucose (mg/dL) 120 H (70-110) mg/dL CA 19-9 Antigen (0.0-34.9) U/mL Total PSA (<=4.0) ng/mL 09/25/24 09/25/24 Range/Units 07:15 12:26 WBC (4.50-10.00) 10*3/uL RBC (4.40-5.60) 10*6/uL Hgb (13.0-17.0) g/dL Hct (39.6-50.0) % RDW (11.5-14.5) % Sodium (137-145) mmol/L Chloride (98-107) mmol/L BUN (9-20) mg/dL Creatinine (0.66-1.25) mg/dL Glucose (74-99) mg/dL POC Glucose (mg/dL) 134 H 139 H (70-110) mg/dL CA 19-9 Antigen (0.0-34.9) U/mL Total PSA (<=4.0) ng/mL Microbiology - Last 24 Hours (Table) 09/23/24 18:17 Blood Culture - Preliminary Blood Assessment and Plan (1) Abdominal pain Current Visit: Yes Status: Acute Code(s): R10.9 - UNSPECIFIED ABDOMINAL PAIN SNOMED Code(s): 33954633 (2) Ascites Current Visit: Yes Status: Acute Priority: High Code(s): R18.8 - OTHER ASCITES SNOMED Code(s): 663940381 (3) Chronic hiccups Current Visit: Yes Status: Acute Priority: High Code(s): R06.6 - HICCOUGH SNOMED Code(s): 803108419 (4) Hepatic cirrhosis Current Visit: Yes Status: Acute Code(s): K74.60 - UNSPECIFIED CIRRHOSIS OF LIVER SNOMED Code(s): 25610800 (5) Liver masses Current Visit: Yes Status: Acute Priority: High Code(s): R16.0 - HEPATOMEGALY, NOT ELSEWHERE CLASSIFIED SNOMED Code(s): 467166652 (6) Nausea and vomiting Current Visit: Yes Status: Acute Priority: High Code(s): R11.2 - NAUSEA WITH VOMITING, UNSPECIFIED SNOMED Code(s): 13237920 (7) Unintentional weight loss Current Visit: Yes Status: Acute Priority: High Code(s): R63.4 - ABNORMAL WEIGHT LOSS SNOMED Code(s): 127192691 Plan: Unintentional weight loss, liver lesions and LAD on imaging, intractable nausea and vomiting. -Reviewed with patient and concerning findings on imaging. They are agreeable to additional work up - IR consulted for liver biopsy and paracentesis. IR felt liver biopsy not obtainable. S/p paracentesis with 2.5L removed, cytology and fluid studies pending -Ca19.9 elevated at 2079, CEA and AFP WNL -Further recs pending cytology -PET CT will be scheduled outpt, with subsequent clinic f/u Had detailed discussion with pt and spouse regarding concerns for malignancy, pancreatic vs liver primary, as well as POC. All questions and concerns addressed Intractable hiccups -Likely secondary to irritation from LAD in gastrohepatic area - Thorazine ordered to try and quell intractable hiccups. Sx improved N,V -Antiemetics, ordered. -N/v subsided -Encouraged increasing oral intake as tolerated Weakness -PT consulted
[2024-09-25 19:28] LABS: T. Protein, Body Fluid Source Ascites; Total Protein, Body Fluid 3460 mg/dL
[2024-09-25 19:53] LABS: Albumin, Fluid Source Ascites
[2024-09-25 20:35] LABS: Glucose,Whole Blood 163 mg/dL (70-110)
[2024-09-26 07:12] LABS: Glucose,Whole Blood 162 mg/dL (70-110)
[2024-09-26 07:29] LABS: HGB 10.3 g/dL (13.0-17.0); MCH 27.4 pg (27.0-32.0); MCHC 31.2 g/dL (32.0-37.0); MCV 87.8 fL (80.0-97.0); Mean Platelet Volume 11.5 fL (9.5-12.2); Platelet Count 224 10*3/uL (140-440); RBC 3.76 10*6/uL (4.40-5.60); RDW 15.1 % (11.5-14.5); WBC 15.04 10*3/uL (4.50-10.00)
[2024-09-26 07:57] LABS: African American GFR (CKD) 35 (>60 ml/min/1.73 sqM); Anion Gap 10 mmol/L; Blood Urea Nitrogen 51 mg/dL (9-20); Calcium 8.4 mg/dL (8.4-10.2); Carbon Dioxide 23 mmol/L (22-30); Chloride 96 mmol/L (98-107); Glucose 149 mg/dL (74-99); Non-African American GFR(CKD) 30 (>60 ml/min/1.73 sqM); Potassium 4.4 mmol/L (3.5-5.1); Sodium 129 mmol/L (137-145)
--- NOTE | 2024-09-26 11:46 | P.NPCON ---
History of Present Illness - Reason for Consult Consult date: 09/26/24 hyponatremia - History of Present Illness 74 year old male with PMHx of Coronary artery disease s/p stent placement, diabetes mellitus, hyperlipidemia, hypertension, tobacco dependence presented to the ED with abdominal pain. admitted for management of liver cirrhosis with ascites, CT showed liver masses concerning for malignancy. he underwent abdominal paracenetesis on 09/25, 2.5 L of fluids were removed. nephrology is consulted for AMINATA and hyponatremia management the patient is feeling better today, says this is his first episode of ascites. on 2 L O2 therapy today. he is getting spironolactone 25 mg daily. cr. on admission was 1.9, trend to 1.6 and later up to 1.9 and 2.0 this morning, UA + hyaline casts, 1+ proteins . baseline creatinine ~ 1.5 mg/dL sodium level on admission was 134, trend to 129 today. he is asymptomatic. Past Medical History Past Medical History: Coronary Artery Disease (CAD), Diabetes Mellitus, Hyperlipidemia, Hypertension Additional Past Medical History / Comment(s): [place] Palsy History of Any Multi-Drug Resistant Organisms: None Reported Past Surgical History: Appendectomy, Cholecystectomy, Heart Catheterization With Stent Past Anesthesia/Blood Transfusion Reactions: No Reported Reaction Date of Last Stent Placement:: 2022 Past Psychological History: No Psychological Hx Reported Smoking Status: Current every day smoker Past Alcohol Use History: None Reported Past Drug Use History: None Reported Medications and Allergies Home Medications Medication Instructions Recorded Confirmed Type Atorvastatin [Lipitor] 40 mg PO DAILY 08/16/22 09/23/24 History Furosemide [Lasix] 80 mg PO DAILY 08/16/22 09/23/24 History Losartan [Cozaar] 50 mg PO DAILY 08/16/22 09/23/24 History Metoprolol Succinate [Toprol XL] 50 mg PO DAILY 08/16/22 09/23/24 History Nitroglycerin Sl Tabs [Nitrostat] 0.4 mg SL Q5M PRN 08/16/22 09/23/24 History Pantoprazole [Protonix] 40 mg PO DAILY 08/16/22 09/23/24 History amLODIPine [Norvasc] 10 mg PO DAILY 08/16/22 09/23/24 History oxyCODONE-APAP 10-325MG [Percocet 1 tab PO Q4H 08/16/22 09/23/24 History 10-325 mg] Aspirin EC [Ecotrin Low Dose] 81 mg PO DAILY 09/23/24 09/23/24 History Clopidogrel [Plavix] 75 mg PO DAILY 09/23/24 09/23/24 History Dapagliflozin Propanediol [Farxiga] 10 mg PO DAILY 09/23/24 09/23/24 History Ergocalciferol (Vitamin D2) 1,250 mcg PO TH 09/23/24 09/23/24 History [Drisdol (GEQ) 1,250 MCG (50,000 IU)] Isosorbide Mononitrate ER [Imdur] 30 mg PO DAILY 09/23/24 09/23/24 History Spironolactone [Aldactone] 25 mg PO DAILY 09/23/24 09/23/24 History metFORMIN HCL ER [Glucophage XR] 500 mg PO DAILY 09/23/24 09/23/24 History Allergies Allergy/AdvReac Type Severity Reaction Status Date / Time cephalexin [From Keflex] AdvReac Nausea & Verified 09/23/24 16:24 Vomiting & Diarrhea Physical Exam Vitals: Vital Signs Temp Pulse Resp BP Pulse Ox 09/26/24 09:09 92 L 09/26/24 08:00 98.6 F 81 24 92/56 91 L 09/26/24 01:53 98.2 F 78 17 103/61 92 L 09/25/24 19:13 97.6 F 71 16 110/60 94 L 09/25/24 11:42 97.6 F 96 16 93/62 Intake and Output 09/25/24 09/26/24 09/26/24 22:59 06:59 14:59 Intake Total 1080 Output Total 375 400 Balance 705 -400 Intake: Oral 1080 Output: Urine 375 400 Other: Voiding Method Urinal Patient is awake, comfortable, no acute distress Examination of the heart S1 and S2 Examination of the lungs bilateral breath sounds are heard Abdomen is soft nontender, distended Examination lower extremities shows no significant edema SHIPPING HAND exam grossly intact Results - Lab Results Most recent lab results Calcium 8.4 mg/dL (8.4-10.2) 09/26/24 06:45 09/26/24 06:45 09/26/24 06:45 Assessment and Plan Assessment: 1. acute kidney injury, likely prerenal or ATN, versus hepatorenal syndrome in the setting of liver cirrhosis, cr. on admission was 1.9, trend to 1.6 and later up to 1.9 and 2.0 this morning, UA + hyaline casts, 1+ proteins . baseline creatinine ~ 1.5 mg/dL. he is getting spironolactone 25 mg daily , had CT with contrast on 09/23 2. Liver cirrhosis with acsites ,s/p paracentesis bloody 2.5 L fluid on 09/25. on ceftriaxone, GI following 3. liver masses concerning for malignancy , and possible metastasis to bones on CT 4. Anemia, rule out iron deficiency 5. mild asymptomatic Hyponatremia, in the setting of liver cirrhosis Plan: discontinue spironolactone start gentle IVF @ 75 ml/hr check urine sodium and osm consider starting HRS cocktail with albumin, midodrine and octreotide for volume expansion if no improvement in renal function check iron panel daily BMP
[2024-09-26 12:16] LABS: Glucose,Whole Blood 202 mg/dL (70-110)
--- NOTE | 2024-09-26 12:17 | P.PN ---
Subjective Progress Note Date: 09/26/24 Principal diagnosis: Hospital course: Patient is a 74 year old male with Coronary artery disease s/p stent placement, diabetes mellitus, hyperlipidemia, hypertension, tobacco dependence presented to the ED with abdominal pain. Patient reports helping his friend with some patio work 2 weeks ago when he started having hot flashes. He then had abdominal pain associated with vomiting. 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 He mention he lost 20 pounds in the last week and a half. He mentions that he usually drinks a lot of water but lately has only had a glass of water a day and has had decreased appetite. He also has soft stools, but denies diarrhea. Additionally, he reports having a low stream of urine that he attributes to his BPH.He mentions following up with editor trade journal and home care assistant in the past but hasn't seen them in quite some time lately. He did have an MRI of the abdomen a few years ago at [facility] in [place]. He has also had some surgery for twisted bowel years ago. He is a current everyday smoker, smoking since he was 14. He was drinking alcohol in the past but quit when he was 49. Moreover he reports having a headache and eye pain, but mentions that its similar to the migraines he used to have in the past. Abdomen pelvis CT done in 2022 shows no evidence for acute process, hepatic cirrhosis evidence of portal hypertension splenomegaly, scattered hepatic hypodense lesions. Appearance of the attending indicates a 500, prostatomegaly, chronic diverticulosis, bilateral fat-containing inguinal hernias. Denies fever, chills, shortness of breath, cough, chest pain, palpitations, hematuria, dysuria, hematochezia, melena, slurred speech, numbness, tingling, lightheadedness, blurred vision, double vision. ED documentation reviewed. In the ED patient was treated with Dilaudid, Zofran, lactated Ringer. 09/24/24: Patient is seen and examined at bedside today. Last night he reported 10/10 pain, home med Percocet was resumed and he wished to be made No code. He notes slight improvement in pain today. 09/25/24: Patient evaluated at bedside today. He reports improvement in the epigastric pain. Patient underwent paracentesis today and 2.5 L was removed. 09/26/24: Patient seen and examined at bedside today. He notes some improvement in abdominal pain and hiccups. Review of systems: Pertinent positives and negatives as discussed in HPI, a complete review of syst ems was performed and all other systems are negative. Vitals: Signs Reviewed, SpO2 92% on 2L oxygen via NC Physical examination: General: nontoxic, no distress, appears at stated age Derm: warm, dry, intact Head: atraumatic, normocephalic, symmetric Eyes: EOMI, anicteric sclera Mouth: no lip lesion, mucus membranes moist Cardiovascular: S1 S2 reg, no murmur Lungs: CTA bilateral, no rhonchi, no rales, no accessory muscle use Abdominal: soft, non-tender to palpation Extremities: No cyanosis, clubbing, or pedal edema. Neuro: Alert, Oriented, Gross neurological examination did not reveal any focal deficits. Psych: well appearing, appropriate affect Data Reviewed Today: Labs: WBC 15.04, hemoglobin 10.3, RDW 15.1, sodium 129, BUN 51, creatinine 2.08, glucose 162 Ascitic fluid WBC 2131, protein 3460, albumin 2.06 Imaging: No new imaging Assessment/Plan: Patient is a 74 year old male with Coronary artery disease s/p stent placement, diabetes mellitus, hyperlipidemia, hypertension, tobacco dependence presented to the ED with abdominal pain. Active: #. Abdominal pain #. Ascites #. Sepsis #. History of Liver cirrhosis #. Possible Hepatic neoplasm with metastasis #. Possible upper GI bleed #. Possible SBP #. Leukocytosis, secondary to above, improving #. S/p paracentesis, 2.5 L removed Abdomen/pelvis CT shows multiple hypodense masses of the caudate lobe of the liver with lobular masses scattered within the gastrohepatic ligament, omentum and upper mesentery, Findings suspicious for hepatic neoplasm with marked metastatic disease. Stable changes of cirrhotic liver. Interval development of moderate ascites. Stable osseous lesions involving L3 and L5 and S1, possibly metastatic disease Total bilirubin 1.7, Conjugated bili 0, Unconjugated bili 0.9, AFP <3, CEA antigen < 2, CA 19-9 antigen 2079, , Acute hepatitis panel is negative Exudative ascitic fluid- appearance is grossly bloody, WBC 2131, PMN 69%, protein 3460, albumin 2.06, SAAG 1.1 Ascitic fluid PMN >1000, meets criteria for SBP, but difficult to say as ascitic fluid is grossly blood in appearance. Continue Ceftriaxone 2 gm IVPB Q24HR empirically Continue Protonix 40 mg IV BID Received Dilaudid in the ED, Home med Percocet was resumed overnight Monitor CBC and BMP Oncology is following GI is following, recommend No plans on endoscopic evaluation at this time IR consulted for liver biopsy, however they state that they cannot complete percutaneous secondary to location #. Intractable hiccups Likely secondary to irritation from LAD in gastrohepatic area Continue Chlorpromazine 25 mg PO Q6HR PRN #. AMINATA on CKD, worsening #. Possible Hepatorenal syndrome vs contrast induced vs medication induced #. Hypervolemic Hyponatremia, worsening UA shows specific gravity 1.036, 1+ protein, 4 hyaline casts, rare mucus Received 1L LR bolus Aldactone discontinued IV fluids started at 75 ml/hr Obtain urine osm, urine sodium, serum osm Monitor BMP Nephrology is following, recommended to consider starting HRS cocktail with albumin, midodrine and octreotide for volume expansion if no improvement in renal function #. Normocytic anemia likely secondary to blood loss in paracentesis, grossly bloody ascitic fluid Obtain iron panel, retic count, LDH Transfuse for Hb<7 #. Type II Diabetes mellitus A1c 6.7 Insulin sliding scale and ACHS blood glucose monitoring Monitor for hypoglycemia Hold home med metformin #. Nausea and vomiting Continue Zofran 4 mg IVP Q6HR PRN #. Type B Lactic acidosis, improving Received 1L LR bolus Trend lactate #. Prostatic hypertrophy #. History of BPH Abdomen pelvic CT shows Moderate prostatic hypertrophy total PSA 7.3, free PSA 1.63 Continue home med Tadalafil 10 mg PO daily Monitor urine output #. Hyperkalemia, resolved Chronic: #. Hypertension #. Hyperlipidemia #. CAD S/p multiple stents #. GERD Continue home meds amlodipine 10 mg p.o. daily, atorvastatin 40 mg p.o. daily, Imdur 30 mg p.o. daily, losartan 50 mg p.o. daily, metoprolol 50 mg p.o. daily Plavix held for possible upper GI bleed, Farxiga held for renal function F: None E: Replete as required N: Consistent carbohydrate diet A: Ambulatory DVT prophylaxis: Not indicated GI prophylaxis: Pantoprazole 40 mg IV BID Code status: NO CODE Anticipated discharge place: Pending clinical course Anticipated discharge time: Pending clinical course Dictation was produced using [employer] dictation software. please excuse any gr ammatical, word or spelling errors. Nuzhat Bustos MD PGY-1 IM I saw and evaluated the patient during the layton and critical portions of this encounter, and discussed the case in detail with the resident author of this note, I agree with the Assessment and Plan, and my changes, if any, are highlighted in blue. Objective - Vital Signs Vital signs: Vital Signs Temp 98.2 F 09/26/24 01:53 Pulse 78 09/26/24 01:53 Resp 17 09/26/24 01:53 BP 103/61 09/26/24 01:53 Pulse Ox 92 L 09/26/24 01:53 FiO2 Intake & Output 09/25/24 09/26/24 09/26/24 18:59 06:59 18:59 Intake Total 1080 Output Total 375 400 Balance 705 -400 Intake: Oral 1080 Output: Urine 375 400 Other: Voiding Method Urinal Urinal - Labs CBC & Chem 7: 09/26/24 06:45 09/26/24 06:45 Labs: Abnormal Lab Results - Last 24 Hours (Table) 09/25/24 09/25/24 09/25/24 Range/Units 10:40 12:26 17:00 WBC (4.50-10.00) 10*3/uL RBC (4.40-5.60) 10*6/uL Hgb (13.0-17.0) g/dL Hct (39.6-50.0) % MCHC (32.0-37.0) g/dL RDW (11.5-14.5) % Sodium (137-145) mmol/L Chloride (98-107) mmol/L BUN (9-20) mg/dL Creatinine (0.66-1.25) mg/dL Glucose (74-99) mg/dL POC Glucose (mg/dL) 139 H 131 H (70-110) mg/dL Fluid Appearance Grossly Bloody A (Clear) 09/25/24 09/26/24 09/26/24 Range/Units 20:33 06:45 06:45 WBC 15.04 H (4.50-10.00) 10*3/uL RBC 3.76 L (4.40-5.60) 10*6/uL Hgb 10.3 L (13.0-17.0) g/dL Hct 33.0 L (39.6-50.0) % MCHC 31.2 L (32.0-37.0) g/dL RDW 15.1 H (11.5-14.5) % Sodium 129 L (137-145) mmol/L Chloride 96 L (98-107) mmol/L BUN 51 H (9-20) mg/dL Creatinine 2.08 H (0.66-1.25) mg/dL Glucose 149 H (74-99) mg/dL POC Glucose (mg/dL) 163 H (70-110) mg/dL Fluid Appearance (Clear) 09/26/24 Range/Units 07:11 WBC (4.50-10.00) 10*3/uL RBC (4.40-5.60) 10*6/uL Hgb (13.0-17.0) g/dL Hct (39.6-50.0) % MCHC (32.0-37.0) g/dL RDW (11.5-14.5) % Sodium (137-145) mmol/L Chloride (98-107) mmol/L BUN (9-20) mg/dL Creatinine (0.66-1.25) mg/dL Glucose (74-99) mg/dL POC Glucose (mg/dL) 162 H (70-110) mg/dL Fluid Appearance (Clear) Microbiology - Last 24 Hours (Table) 09/25/24 10:40 Gram Stain - Preliminary Ascites Fluid 09/23/24 18:17 Blood Culture - Preliminary Blood
[2024-09-26] MEDS: SODIUM CHLORIDE 0.9% 1,000 ML IV SCH (12:30)
[2024-09-26 17:19] LABS: Glucose,Whole Blood 174 mg/dL (70-110)
[2024-09-26 21:21] LABS: Glucose,Whole Blood 185 mg/dL (70-110)
[2024-09-27 06:10] LABS: HCT 32.2 % (39.6-50.0); HGB 10.3 g/dL (13.0-17.0); MCH 27.8 pg (27.0-32.0); MCV 86.8 fL (80.0-97.0); Mean Platelet Volume 11.6 fL (9.5-12.2); Platelet Count 231 10*3/uL (140-440); RBC 3.71 10*6/uL (4.40-5.60); RDW 15.2 % (11.5-14.5); WBC 17.15 10*3/uL (4.50-10.00)
[2024-09-27 06:32] LABS: African American GFR (CKD) 34 (>60 ml/min/1.73 sqM); Anion Gap 11 mmol/L; Blood Urea Nitrogen 52 mg/dL (9-20); Calcium 8.5 mg/dL (8.4-10.2); Carbon Dioxide 20 mmol/L (22-30); Chloride 97 mmol/L (98-107); Glucose 145 mg/dL (74-99); Non-African American GFR(CKD) 29 (>60 ml/min/1.73 sqM); Potassium 4.3 mmol/L (3.5-5.1); Sodium 128 mmol/L (137-145)
[2024-09-27 07:15] LABS: Glucose,Whole Blood 156 mg/dL (70-110)
[2024-09-27 09:23] LABS: Reticulocyte % 2.3 % (0.10-1.80)
[2024-09-27] MEDS: FUROSEMIDE 10 MG/ML 4 ML VIAL IV STA (09:30)
[2024-09-27] MEDS: FUROSEMIDE 40 MG TAB PO SCH (09:38)
[2024-09-27 09:41] LABS: % Iron Saturation 8.39 (15.00-50.00)
--- NOTE | 2024-09-27 10:39 | P.PN ---
Subjective Progress Note Date: 09/27/24 following for AMINATA and hyponatremia the patient seen today, resting in bed, no acute distress received gentle IVF yesterday , making urine on 3 L O2 though nasal cannula Objective - Vital Signs Vital signs: Vital Signs Temp 99.6 F 09/27/24 08:00 Pulse 76 09/27/24 08:00 Resp 24 09/27/24 08:00 BP 110/72 09/27/24 08:00 Pulse Ox 92 L 09/27/24 08:03 FiO2 Intake & Output 09/26/24 09/27/24 09/27/24 18:59 06:59 18:59 Output Total 600 Balance -600 Output: Urine 600 Other: Voiding Method Urinal Urinal Urinal # Voids 2 - Exam Patient is awake, comfortable, no acute distress Examination of the heart S1 and S2 Examination of the lungs bilateral breath sounds are heard Abdomen is soft nontender, distended Examination lower extremities shows no significant edema ETL DATA ARCHITECT exam grossly intact - Labs CBC & Chem 7: 09/27/24 05:30 09/27/24 05:30 Labs: Abnormal Lab Results - Last 24 Hours (Table) 09/26/24 09/26/24 09/26/24 Range/Units 12:14 12:45 17:17 WBC (4.50-10.00) 10*3/uL RBC (4.40-5.60) 10*6/uL Hgb (13.0-17.0) g/dL Hct (39.6-50.0) % RDW (11.5-14.5) % Retic Count (0.10-1.80) % Sodium (137-145) mmol/L Chloride (98-107) mmol/L Carbon Dioxide (22-30) mmol/L BUN (9-20) mg/dL Creatinine (0.66-1.25) mg/dL Glucose (74-99) mg/dL POC Glucose (mg/dL) 202 H 174 H (70-110) mg/dL Iron (65-175) UG/DL TIBC (228-460) UG/DL % Saturation (15.00-50.00) Transferrin (204.0-354.0) mg/dL Ferritin (22.0-322.0) ng/mL Lactate Dehydrogenase (120-246) U/L Ur Random Sodium <20 L (40-220) mmol/L 09/26/24 09/27/24 09/27/24 Range/Units 21:19 05:30 05:30 WBC 17.15 H (4.50-10.00) 10*3/uL RBC 3.71 L (4.40-5.60) 10*6/uL Hgb 10.3 L (13.0-17.0) g/dL Hct 32.2 L (39.6-50.0) % RDW 15.2 H (11.5-14.5) % Retic Count (0.10-1.80) % Sodium 128 L (137-145) mmol/L Chloride 97 L (98-107) mmol/L Carbon Dioxide 20 L (22-30) mmol/L BUN 52 H (9-20) mg/dL Creatinine 2.15 H (0.66-1.25) mg/dL Glucose 145 H (74-99) mg/dL POC Glucose (mg/dL) 185 H (70-110) mg/dL Iron (65-175) UG/DL TIBC (228-460) UG/DL % Saturation (15.00-50.00) Transferrin (204.0-354.0) mg/dL Ferritin (22.0-322.0) ng/mL Lactate Dehydrogenase (120-246) U/L Ur Random Sodium (40-220) mmol/L 09/27/24 09/27/24 09/27/24 Range/Units 05:30 05:30 07:12 WBC (4.50-10.00) 10*3/uL RBC (4.40-5.60) 10*6/uL Hgb (13.0-17.0) g/dL Hct (39.6-50.0) % RDW (11.5-14.5) % Retic Count 2.30 H (0.10-1.80) % Sodium (137-145) mmol/L Chloride (98-107) mmol/L Carbon Dioxide (22-30) mmol/L BUN (9-20) mg/dL Creatinine (0.66-1.25) mg/dL Glucose (74-99) mg/dL POC Glucose (mg/dL) 156 H (70-110) mg/dL Iron 12 L (65-175) UG/DL TIBC 143 L (228-460) UG/DL % Saturation 8.39 L (15.00-50.00) Transferrin 102.0 L (204.0-354.0) mg/dL Ferritin 1222.0 H (22.0-322.0) ng/mL Lactate Dehydrogenase 338 H (120-246) U/L Ur Random Sodium (40-220) mmol/L Microbiology - Last 24 Hours (Table) 09/25/24 10:40 Gram Stain - Preliminary Ascites Fluid Body Fluid Culture - Preliminary 09/23/24 18:17 Blood Culture - Preliminary Blood Assessment and Plan Assessment: 1. acute kidney injury, likely prerenal or ATN, versus hepatorenal syndrome in the setting of liver cirrhosis, cr. on admission was 1.9, trend to 1.6 and later up to 1.9 and 2.0-> 2.1 this morning, UA + hyaline casts, 1+ proteins . baseline creatinine ~ 1.5 mg/dL. was on spironolactone 25 mg daily , had CT with contrast on 09/23, received IVF 2. Liver cirrhosis with acsites ,s/p paracentesis bloody 2.5 L fluid on 09/25. on ceftriaxone, GI following 3. liver masses concerning for malignancy , and possible metastasis to bones on CT 4. Anemia, iron deficient 5. mild asymptomatic Hyponatremia, in the setting of liver cirrhosis , urine sodium < 20 , received gentle IVF Plan: stable renal function, s/p IVF will start Lasix 40 mg PO daily consider starting HRS cocktail with albumin, midodrine and octreotide for volume expansion if no improvement in renal function start PO iron supplement daily BMP
[2024-09-27 12:11] LABS: Glucose,Whole Blood 173 mg/dL (70-110)
--- NOTE | 2024-09-27 15:09 | P.PN ---
Subjective Progress Note Date: 09/27/24 Principal diagnosis: Hospital course: Patient is a 74 year old male with Coronary artery disease s/p stent placement, diabetes mellitus, hyperlipidemia, hypertension, tobacco dependence presented to the ED with abdominal pain. Patient reports helping his friend with some patio work 2 weeks ago when he started having hot flashes. He then had abdominal pain associated with vomiting. 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 He mention he lost 20 pounds in the last week and a half. He mentions that he usually drinks a lot of water but lately has only had a glass of water a day and has had decreased appetite. He also has soft stools, but denies diarrhea. Additionally, he reports having a low stream of urine that he attributes to his BPH.He mentions following up with oceanography professor and returning officer in the past but hasn't seen them in quite some time lately. He did have an MRI of the abdomen a few years ago at [facility] in [place]. He has also had some surgery for twisted bowel years ago. He is a current everyday smoker, smoking since he was 14. He was drinking alcohol in the past but quit when he was 49. Moreover he reports having a headache and eye pain, but mentions that its similar to the migraines he used to have in the past. Abdomen pelvis CT done in 2022 shows no evidence for acute process, hepatic cirrhosis evidence of portal hypertension splenomegaly, scattered hepatic hypodense lesions. Appearance of the attending indicates a 500, prostatomegaly, chronic diverticulosis, bilateral fat-containing inguinal hernias. Denies fever, chills, shortness of breath, cough, chest pain, palpitations, hematuria, dysuria, hematochezia, melena, slurred speech, numbness, tingling, lightheadedness, blurred vision, double vision. ED documentation reviewed. In the ED patient was treated with Dilaudid, Zofran, lactated Ringer. 09/24/24: Patient is seen and examined at bedside today. Last night he reported 10/10 pain, home med Percocet was resumed and he wished to be made No code. He notes slight improvement in pain today. 09/25/24: Patient evaluated at bedside today. He reports improvement in the epigastric pain. Patient underwent paracentesis today and 2.5 L was removed. 09/26/24: Patient seen and examined at bedside today. He notes some improvement in abdominal pain and hiccups. 09/27/24: Pt still c/o abd discomfort. Also c/o of some LLE swelling and pain. US pending. Review of systems: Pertinent positives and negatives as discussed in HPI, a complete review of systems was performed and all other systems are negative. Vitals: Signs Reviewed, SpO2 92% on 2L oxygen via NC Physical examination: General: nontoxic, no distress, appears at stated age Derm: warm, dry, intact Head: atraumatic, normocephalic, symmetric Eyes: EOMI, anicteric sclera Mouth: no lip lesion, mucus membranes moist Cardiovascular: S1 S2 reg, no murmur Lungs: CTA bilateral, no rhonchi, no rales, no accessory muscle use Abdominal: soft, non-tender to palpation Extremities: No cyanosis, clubbing, or pedal edema. Neuro: Alert, Oriented, Gross neurological examination did not reveal any focal deficits. Psych: well appearing, appropriate affect Data Reviewed Today: Labs: WBC 15.04, hemoglobin 10.3, RDW 15.1, sodium 129, BUN 51, creatinine 2.08, glucose 162 Ascitic fluid WBC 2131, protein 3460, albumin 2.06 Imaging: No new imaging Assessment/Plan: Patient is a 74 year old male with Coronary artery disease s/p stent placement, diabetes mellitus, hyperlipidemia, hypertension, tobacco dependence presented to the ED with abdominal pain. Active: #. Abdominal pain #. Ascites #. Sepsis #. History of Liver cirrhosis #. Possible Hepatic neoplasm with metastasis #. Possible upper GI bleed #. Possible SBP #. Leukocytosis, secondary to above, improving #. S/p paracentesis, 2.5 L removed Abdomen/pelvis CT shows multiple hypodense masses of the caudate lobe of the liver with lobular masses scattered within the gastrohepatic ligament, omentum and upper mesentery, Findings suspicious for hepatic neoplasm with marked metastatic disease. Stable changes of cirrhotic liver. Interval development of moderate ascites. Stable osseous lesions involving L3 and L5 and S1, possibly metastatic disease Total bilirubin 1.7, Conjugated bili 0, Unconjugated bili 0.9, AFP <3, CEA antigen < 2, CA 19-9 antigen 2079, , Acute hepatitis panel is negative Exudative ascitic fluid- appearance is grossly bloody, WBC 2131, PMN 69%, protein 3460, albumin 2.06, SAAG 1.1 Ascitic fluid PMN >1000, meets criteria for SBP, but difficult to say as ascitic fluid is grossly blood in appearance. Continue Ceftriaxone 2 gm IVPB Q24HR empirically Continue Protonix 40 mg IV BID Received Dilaudid in the ED, Home med Percocet was resumed overnight Monitor CBC and BMP Oncology is following GI is following, recommend No plans on endoscopic evaluation at this time IR consulted for liver biopsy, however they state that they cannot complete percutaneous secondary to location #. Intractable hiccups Likely secondary to irritation from LAD in gastrohepatic area Continue Chlorpromazine 25 mg PO Q6HR PRN #. AMINATA on CKD, worsening #. Possible Hepatorenal syndrome vs contrast induced vs medication induced #. Hypervolemic Hyponatremia, worsening UA shows specific gravity 1.036, 1+ protein, 4 hyaline casts, rare mucus Received 1L LR bolus Aldactone discontinued IV fluids started at 75 ml/hr Obtain urine osm, urine sodium, serum osm Monitor BMP Nephrology is following, recommended to consider starting HRS cocktail with albumin, midodrine and octreotide for volume expansion if no improvement in renal function #. Normocytic anemia likely secondary to blood loss in paracentesis, grossly bloody ascitic fluid Obtain iron panel, retic count, LDH Transfuse for Hb<7 #. Type II Diabetes mellitus A1c 6.7 Insulin sliding scale and [facility] blood glucose monitoring Monitor for hypoglycemia Hold home med metformin #. Nausea and vomiting Continue Zofran 4 mg IVP Q6HR PRN #. Type B Lactic acidosis, improving Received 1L LR bolus Trend lactate #. Prostatic hypertrophy #. History of BPH Abdomen pelvic CT shows Moderate prostatic hypertrophy total PSA 7.3, free PSA 1.63 Continue home med Tadalafil 10 mg PO daily Monitor urine output #. Hyperkalemia, resolved Chronic: #. Hypertension #. Hyperlipidemia #. CAD S/p multiple stents #. GERD Continue home meds amlodipine 10 mg p.o. daily, atorvastatin 40 mg p.o. daily, Imdur 30 mg p.o. daily, losartan 50 mg p.o. daily, metoprolol 50 mg p.o. daily Plavix held for possible upper GI bleed, Farxiga held for renal function F: None E: Replete as required N: Consistent carbohydrate diet A: Ambulatory DVT prophylaxis: Not indicated GI prophylaxis: Pantoprazole 40 mg IV BID Code status: NO CODE Anticipated discharge place: Pending clinical course Anticipated discharge time: Pending clinical course Dictation was produced using [employer] dictation software. please excuse any grammatical, word or spelling errors. Objective - Vital Signs Vital signs: Vital Signs Temp 98.5 F 09/27/24 12:49 Pulse 86 09/27/24 12:49 Resp 24 09/27/24 12:49 BP 81/60 09/27/24 12:49 Pulse Ox 92 L 09/27/24 12:49 FiO2 Intake & Output 09/26/24 09/27/24 09/27/24 18:59 06:59 18:59 Output Total 600 Balance -600 Output: Urine 600 Other: Voiding Method Urinal Urinal Urinal # Voids 2 - Labs CBC & Chem 7: 09/27/24 05:30 09/27/24 05:30 Labs: Abnormal Lab Results - Last 24 Hours (Table) 09/26/24 09/26/24 09/26/24 Range/Units 12:45 17:17 21:19 WBC (4.50-10.00) 10*3/uL RBC (4.40-5.60) 10*6/uL Hgb (13.0-17.0) g/dL Hct (39.6-50.0) % RDW (11.5-14.5) % Retic Count (0.10-1.80) % Sodium (137-145) mmol/L Chloride (98-107) mmol/L Carbon Dioxide (22-30) mmol/L BUN (9-20) mg/dL Creatinine (0.66-1.25) mg/dL Glucose (74-99) mg/dL POC Glucose (mg/dL) 174 H 185 H (70-110) mg/dL Iron (65-175) UG/DL TIBC (228-460) UG/DL % Saturation (15.00-50.00) Transferrin (204.0-354.0) mg/dL Ferritin (22.0-322.0) ng/mL Lactate Dehydrogenase (120-246) U/L Ur Random Sodium <20 L (40-220) mmol/L 09/27/24 09/27/24 09/27/24 Range/Units 05:30 05:30 05:30 WBC 17.15 H (4.50-10.00) 10*3/uL RBC 3.71 L (4.40-5.60) 10*6/uL Hgb 10.3 L (13.0-17.0) g/dL Hct 32.2 L (39.6-50.0) % RDW 15.2 H (11.5-14.5) % Retic Count 2.30 H (0.10-1.80) % Sodium 128 L (137-145) mmol/L Chloride 97 L (98-107) mmol/L Carbon Dioxide 20 L (22-30) mmol/L BUN 52 H (9-20) mg/dL Creatinine 2.15 H (0.66-1.25) mg/dL Glucose 145 H (74-99) mg/dL POC Glucose (mg/dL) (70-110) mg/dL Iron (65-175) UG/DL TIBC (228-460) UG/DL % Saturation (15.00-50.00) Transferrin (204.0-354.0) mg/dL Ferritin (22.0-322.0) ng/mL Lactate Dehydrogenase (120-246) U/L Ur Random Sodium (40-220) mmol/L 09/27/24 09/27/24 09/27/24 Range/Units 05:30 07:12 12:10 WBC (4.50-10.00) 10*3/uL RBC (4.40-5.60) 10*6/uL Hgb (13.0-17.0) g/dL Hct (39.6-50.0) % RDW (11.5-14.5) % Retic Count (0.10-1.80) % Sodium (137-145) mmol/L Chloride (98-107) mmol/L Carbon Dioxide (22-30) mmol/L BUN (9-20) mg/dL Creatinine (0.66-1.25) mg/dL Glucose (74-99) mg/dL POC Glucose (mg/dL) 156 H 173 H (70-110) mg/dL Iron 12 L (65-175) UG/DL TIBC 143 L (228-460) UG/DL % Saturation 8.39 L (15.00-50.00) Transferrin 102.0 L (204.0-354.0) mg/dL Ferritin 1222.0 H (22.0-322.0) ng/mL Lactate Dehydrogenase 338 H (120-246) U/L Ur Random Sodium (40-220) mmol/L Microbiology - Last 24 Hours (Table) 09/25/24 10:40 Anaerobic Culture - Preliminary Ascites Fluid 09/25/24 10:40 Gram Stain - Preliminary Ascites Fluid Body Fluid Culture - Preliminary 09/23/24 18:17 Blood Culture - Preliminary Blood
--- NOTE | 2024-09-27 16:21 | US ---
EXAMINATION TYPE: US venous doppler duplex LE LT DATE OF EXAM: 09/27/2024 2:14 PM Exam done portable COMPARISON: NONE CLINICAL INDICATION: Male, 74 years old with history of r/o DVT; TECHNIQUE: The lower extremity deep venous system is examined utilizing real time linear array sonog remington with graded compression, color doppler sonography, and spectral doppler. SIDE PERFORMED: Left FINDINGS: VESSELS IMAGED: Common Femoral Vein Deep Femoral Vein Greater Saphenous Vein * Femoral Vein Popliteal Vein Small Saphenous Vein * Proximal Calf Veins (* superficial vessels) Left Leg: Appears negative for DVT IMPRESSION: No ultrasound evidence for deep venous thrombosis. [facility], , 09/27/2024 4:19 PM
[2024-09-27] MEDS: HEPARIN SODIUM,PORCINE 5,000 UNIT/ML 1 ML VIAL SQ SCH (17:19)
[2024-09-27 17:33] LABS: Glucose,Whole Blood 178 mg/dL (70-110)
[2024-09-27 20:04] LABS: Glucose,Whole Blood 174 mg/dL (70-110)
[2024-09-28 07:03] LABS: Glucose,Whole Blood 132 mg/dL (70-110)
--- NOTE | 2024-09-28 08:14 | P.PN ---
Subjective Patient is seen in follow-up for acute kidney injury on chronic kidney disease. Creatinine 2.15 yesterday. Has been voiding. present at bedside. Vital signs are stable. General: No acute distress. HEENT: Head exam is unremarkable. On nasal cannula. LUNGS: No audible rhonchi or wheezes. HEART: Rate and Rhythm are regular. ABDOMEN: Distention noted. EXTREMITITES: No edema. Objective - Vital Signs Vital signs: Vital Signs Temp 97.8 F 09/28/24 06:54 Pulse 91 09/28/24 06:54 Resp 20 09/28/24 06:54 BP 106/69 09/28/24 06:54 Pulse Ox 90 L 09/28/24 06:54 FiO2 Intake & Output 09/27/24 09/28/24 09/28/24 18:59 06:59 18:59 Intake Total 360 710 Balance 360 710 Intake: Oral 360 710 Other: Voiding Method Urinal Urinal # Voids 2 # Bowel Movements 1 - Labs CBC & Chem 7: 09/27/24 05:30 09/27/24 05:30 Labs: Abnormal Lab Results - Last 24 Hours (Table) 09/27/24 09/27/24 09/27/24 Range/Units 05:30 05:30 12:10 Retic Count 2.30 H (0.10-1.80) % POC Glucose (mg/dL) 173 H (70-110) mg/dL Iron 12 L (65-175) UG/DL TIBC 143 L (228-460) UG/DL % Saturation 8.39 L (15.00-50.00) Transferrin 102.0 L (204.0-354.0) mg/dL Ferritin 1222.0 H (22.0-322.0) ng/mL 09/27/24 09/27/24 09/28/24 Range/Units 17:31 20:03 07:01 Retic Count (0.10-1.80) % POC Glucose (mg/dL) 178 H 174 H 132 H (70-110) mg/dL Iron (65-175) UG/DL TIBC (228-460) UG/DL % Saturation (15.00-50.00) Transferrin (204.0-354.0) mg/dL Ferritin (22.0-322.0) ng/mL Microbiology - Last 24 Hours (Table) 09/25/24 10:40 Anaerobic Culture - Preliminary Ascites Fluid 09/25/24 10:40 Gram Stain - Preliminary Ascites Fluid Body Fluid Culture - Preliminary 09/23/24 18:17 Blood Culture - Preliminary Blood Assessment and Plan Plan: Assessment: 1. Acute kidney injury secondary to ATN. Also concern for hepatorenal syndrome. Creatinine 2.15 yesterday. Also received IV contrast on September 23, 2024. No hydronephrosis noted on imaging. 2. Liver cirrhosis with ascites status post paracentesis September 25, 2024 with 2.5 L drained. 3. Liver masses with concern for malignancy. Oncology following. 4. Anemia. Iron deficiency noted. 5. Hyponatremia, hypervolemic. Status post IV fluids. Urine sodium less than 20 and urine osmolality 405. 6. Chronic kidney disease stage IIIb with baseline creatinine near 1.5 secondary to nephrosclerosis versus diabetic kidney disease. 7. Diabetes mellitus. Plan: Maintain Lasix. Add IV iron. Stop amlodipine. Will give IV albumin if undergoes another paracentesis. Avoid nephrotoxins. Continue to monitor renal function and urine output. Unable to get liver biopsy done.
[2024-09-28] MEDS: SODIUM FERRIC GLUCONAT-SUCROSE 125 MG in SODIUM CHLORIDE 0.9% 100 ML IVPB SCH (09:19)
[2024-09-28 09:43] LABS: HCT 33.9 % (39.6-50.0); HGB 10.8 g/dL (13.0-17.0); MCH 28.1 pg (27.0-32.0); MCHC 31.9 g/dL (32.0-37.0); MCV 88.1 fL (80.0-97.0); Mean Platelet Volume 11.3 fL (9.5-12.2); Platelet Count 279 10*3/uL (140-440); RBC 3.85 10*6/uL (4.40-5.60); RDW 15.6 % (11.5-14.5)
[2024-09-28 09:53] LABS: African American GFR (CKD) 27 (>60 ml/min/1.73 sqM); Anion Gap 11 mmol/L; Blood Urea Nitrogen 62 mg/dL (9-20); Calcium 8.8 mg/dL (8.4-10.2); Carbon Dioxide 21 mmol/L (22-30); Chloride 97 mmol/L (98-107); Glucose 140 mg/dL (74-99); Non-African American GFR(CKD) 24 (>60 ml/min/1.73 sqM); Potassium 4.9 mmol/L (3.5-5.1); Sodium 129 mmol/L (137-145)
[2024-09-28 11:59] LABS: Glucose,Whole Blood 156 mg/dL (70-110)
[2024-09-28 17:08] LABS: Glucose,Whole Blood 133 mg/dL (70-110)
--- NOTE | 2024-09-28 17:47 | P.PN ---
Subjective Progress Note Date: 09/28/24 Principal diagnosis: Abd distension, liver lesion, ascites In f/u today pt is having some difficulties urinating, his appetite is fair, no N,V. Generalized weakness. Objective - Vital Signs Vital signs: Vital Signs Temp 97.9 F 09/28/24 11:47 Pulse 78 09/28/24 15:54 Resp 18 09/28/24 11:47 BP 92/64 09/28/24 15:54 Pulse Ox 92 L 09/28/24 15:54 FiO2 Intake & Output 09/27/24 09/28/24 09/28/24 18:59 06:59 18:59 Intake Total 360 710 240 Output Total 1400 Balance 360 710 -1160 Weight 102.421 kg Intake: Oral 360 710 240 Output: Urine 1400 Other: Voiding Method Urinal Urinal Urinal # Voids 2 # Bowel Movements 1 - Constitutional General appearance: Present: average body habitus, cooperative, no acute distress - EENT Eyes: Present: anicteric sclerae, EOMI ENT: Present: hearing grossly normal - Cardiovascular Details: skin warm - Gastrointestinal Gastrointestinal Comment(s): abd distended - Integumentary Integumentary: Present: normal - Neurologic Neurologic: Present: CNII-XII intact - Musculoskeletal Musculoskeletal: Present: generalized weakness - Psychiatric Psychiatric: Present: A&O x's 3, appropriate affect, intact judgment & insight - Labs CBC & Chem 7: 09/28/24 09:14 09/28/24 09:14 Labs: Abnormal Lab Results - Last 24 Hours (Table) 09/27/24 09/28/24 09/28/24 Range/Units 20:03 07:01 09:14 WBC 18.20 H (4.50-10.00) 10*3/uL RBC 3.85 L (4.40-5.60) 10*6/uL Hgb 10.8 L (13.0-17.0) g/dL Hct 33.9 L (39.6-50.0) % MCHC 31.9 L (32.0-37.0) g/dL RDW 15.6 H (11.5-14.5) % Sodium (137-145) mmol/L Chloride (98-107) mmol/L Carbon Dioxide (22-30) mmol/L BUN (9-20) mg/dL Creatinine (0.66-1.25) mg/dL Glucose (74-99) mg/dL POC Glucose (mg/dL) 174 H 132 H (70-110) mg/dL 09/28/24 09/28/24 09/28/24 Range/Units 09:14 11:58 17:07 WBC (4.50-10.00) 10*3/uL RBC (4.40-5.60) 10*6/uL Hgb (13.0-17.0) g/dL Hct (39.6-50.0) % MCHC (32.0-37.0) g/dL RDW (11.5-14.5) % Sodium 129 L (137-145) mmol/L Chloride 97 L (98-107) mmol/L Carbon Dioxide 21 L (22-30) mmol/L BUN 62 H (9-20) mg/dL Creatinine 2.54 H (0.66-1.25) mg/dL Glucose 140 H (74-99) mg/dL POC Glucose (mg/dL) 156 H 133 H (70-110) mg/dL Microbiology - Last 24 Hours (Table) 09/25/24 10:40 Gram Stain - Preliminary Ascites Fluid Body Fluid Culture - Preliminary 09/25/24 10:40 Anaerobic Culture - Preliminary Ascites Fluid Assessment and Plan (1) Liver masses Current Visit: Yes Status: Acute Priority: High Code(s): R16.0 - HEPATOMEGALY, NOT ELSEWHERE CLASSIFIED SNOMED Code(s): 155060089 (2) Ascites Current Visit: Yes Status: Acute Priority: High Code(s): R18.8 - OTHER ASCITES SNOMED Code(s): 619843283 (3) Nausea and vomiting Current Visit: Yes Status: Acute Priority: High Code(s): R11.2 - NAUSEA WITH VOMITING, UNSPECIFIED SNOMED Code(s): 05997309 (4) Unintentional weight loss Current Visit: Yes Status: Acute Priority: High Code(s): R63.4 - ABNORMAL WEIGHT LOSS SNOMED Code(s): 607567560 (5) Chronic hiccups Current Visit: Yes Status: Acute Priority: High Code(s): R06.6 - HICCOUGH SNOMED Code(s): 785544727 Plan: Unintentional weight loss, liver lesions and LAD on imaging, intractable nausea and vomiting. -Reviewed findings with daughter who was present today. Reviewed work up in progress - Paracentesis performed, pending cytology. Intractable hiccups -Likely secondary to irritation from LAD in gastrohepatic area - Thorazine ordered to try and quell intractable hiccups N,V -Antiemetics, ordered. Improved symptoms
[2024-09-28] MEDS: polyethylene glycoL 3350 17 GM POWD.PACK PO SCH (18:02)
--- NOTE | 2024-09-28 18:32 | P.PN ---
Subjective Progress Note Date: 09/28/24 Patient is a 74 year old male with Coronary artery disease s/p stent placement, diabetes mellitus, hyperlipidemia, hypertension, tobacco dependence presented to the ED with abdominal pain. Patient reports helping his friend with some patio work 2 weeks ago when he started having hot flashes. He then had abdominal pain associated with vomiting. 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 He mention he lost 20 pounds in the last week and a half. He mentions that he usually drinks a lot of water but lately has only had a glass of water a day and has had decreased appetite. He also has soft stools, but denies diarrhea. Additionally, he reports having a low stream of urine that he attributes to his BPH.He mentions following up with surgeon's assistant and learning and development director in the past but hasn't seen them in quite some time lately. He did have an MRI of the abdomen a few years ago at [facility] in [place]. He has also had some surgery for twisted bowel years ago. He is a current everyday smoker, smoking since he was 14. He was drinking alcohol in the past but quit when he was 49. Moreover he reports having a headache and eye pain, but mentions that its similar to the migraines he used to have in the past. Abdomen pelvis CT done in 2022 shows no evidence for acute process, hepatic cirrhosis evidence of portal hypertension splenomegaly, scattered hepatic hypodense lesions. Appearance of the attending indicates a 500, prostatomegaly, chronic diverticulosis, bilateral fat-containing inguinal hernias. Denies fever, chills, shortness of breath, cough, chest pain, palpitations, hematuria, dysuria, hematochezia, melena, slurred speech, numbness, tingling, lightheadedness, blurred vision, double vision. ED documentation reviewed. In t he ED patient was treated with Dilaudid, Zofran, lactated Ringer. 09/24/24: Patient is seen and examined at bedside today. Last night he reported 10/10 pain, home med Percocet was resumed and he wished to be made No code. He notes slight improvement in pain today. 09/25/24: Patient evaluated at bedside today. He reports improvement in the epigastric pain. Patient underwent paracentesis today and 2.5 L was removed. 09/26/24: Patient seen and examined at bedside today. He notes some improvement in abdominal pain and hiccups. 09/27/24: Pt still c/o abd discomfort. Also c/o of some LLE swelling and pain. US pending. 09/28/24: Ultrasound with no DVT present, paracentesis planned with cytology. No complaints. Review of systems: Pertinent positives and negatives as discussed in HPI, a complete review of systems was performed and all other systems are negative. Vitals: Signs Reviewed, SpO2 92% on 2L oxygen via NC PHYSICAL EXAMINATION: General: nontoxic, no distress, appears at stated age Cardiovascular: S1 S2 reg, no murmur Lungs: CTA bilateral, no rhonchi, no rales, no accessory muscle use Abdominal: non-tender to palpation, distended Extremities: No cyanosis, clubbing, or pedal edema. Neuro: Alert, Oriented, Gross neurological examination did not reveal any focal deficits. Psych: well appearing, appropriate affect Today significant findings: LabsWBC 18.2, hemoglobin 10.8, sodium 129, bicarb 21, BUN 62, creatinine 2.5 Assessment/Plan: Patient is a 74 year old male with Coronary artery disease s/p stent placement, diabetes mellitus, hyperlipidemia, hypertension, tobacco dependence presented to the ED with abdominal pain. #. Sepsis due to possible SBP #. Ascites with history of Liver cirrhosis #. Possible Hepatic neoplasm with metastasis #. Possible upper GI bleed #. Leukocytosis, secondary to above, improving #. S/p paracentesis, 2.5 L removed Abdomen/pelvis CT shows multiple hypodense masses of the caudate lobe of the liver with lobular masses scattered within the gastrohepatic ligament, omentum and upper mesentery, Findings suspicious for hepatic neoplasm with marked metastatic disease. Stable changes of cirrhotic liver. Interval development of moderate ascites. Stable osseous lesions involving L3 and L5 and S1, possibly metastatic disease Total bilirubin 1.7, Conjugated bili 0, Unconjugated bili 0.9, AFP <3, CEA antigen < 2, CA 19-9 antigen 2079, , Acute hepatitis panel is negative Exudative ascitic fluid- appearance is grossly bloody, WBC 2131, PMN 69%, protein 3460, albumin 2.06, SAAG 1.1 Ascitic fluid PMN >1000, meets criteria for SBP, but difficult to say as ascitic fluid is grossly blood in appearance. Continue Ceftriaxone 2 gm IVPB Q24HR empirically Continue Protonix 40 mg IV BID Resume home Percocet Monitor CBC and BMP Oncology is following GI has signed off, recommended no endoscopic evaluation at this time IR consulted for liver biopsy, however they state that they cannot complete percutaneous secondary to location #. Intractable hiccups Likely secondary to irritation from LAD in gastrohepatic area Continue Chlorpromazine 25 mg PO Q6HR PRN #. AMINATA on CKD, worsening #. Possible Hepatorenal syndrome vs contrast induced vs medication induced #. Hypervolemic Hyponatremia, worsening Initial UA shows specific gravity 1.036, 1+ protein, 4 hyaline casts, rare mucus Aldactone discontinued IV fluids discontinued Urine osmolality 405 Monitor BMP IV albumin ordered Continue Lasix 40 mg p.o. daily Nephrology is following #. Normocytic anemia likely secondary to blood loss in paracentesis, grossly bloody ascitic fluid Obtain iron panel, retic count, LDH Transfuse for Hb<7 #. Type II Diabetes mellitus A1c 6.7 Insulin sliding scale and ACHS blood glucose monitoring Monitor for hypoglycemia Hold home med metformin #. Nausea and vomiting Continue Zofran 4 mg IVP Q6HR PRN #. Type B Lactic acidosis, improved Received 1L LR bolus #. Prostatic hypertrophy #. History of BPH Abdomen pelvic CT shows Moderate prostatic hypertrophy total PSA 7.3, free PSA 1.63 Continue home med Tadalafil 10 mg PO daily Monitor urine output #. Hyperkalemia, resolved Chronic medical conditions: #. Hypertension #. Hyperlipidemia #. CAD S/p multiple stents #. GERD Continue home meds amlodipine 10 mg p.o. daily, atorvastatin 40 mg p.o. daily, Imdur 30 mg p.o. daily, losartan 50 mg p.o. daily, metoprolol 50 mg p.o. daily Plavix held for possible upper GI bleed, Farxiga held for renal function p.o. F: P.o. E: Replete as required N: Consistent carbohydrate diet A: Ambulatory DVT prophylaxis: Not indicated GI prophylaxis: Pantoprazole 40 mg IV BID Code status: NO CODE Anticipated discharge place: Pending clinical course Anticipated discharge time: Pending clinical course Edi Diaz MD Internal Medicine Resident, PGY1 Dictation was produced using [employer] dictation software. please excuse any grammatical, word or spelling errors. I saw and evaluated the patient during the layton and critical portions of this encounter, and discussed the case in detail with the resident author of this note, I agree with the Assessment and Plan, and my changes, if any, are highlighted in blue. Objective - Vital Signs Vital signs: Vital Signs Temp 97.8 F 09/28/24 06:54 Pulse 91 09/28/24 06:54 Resp 20 09/28/24 06:54 BP 106/69 09/28/24 06:54 Pulse Ox 90 L 09/28/24 06:54 FiO2 Intake & Output 09/27/24 09/28/24 09/28/24 18:59 06:59 18:59 Intake Total 360 710 Balance 360 710 Intake: Oral 360 710 Other: Voiding Method Urinal Urinal # Voids 2 # Bowel Movements 1 - Labs CBC & Chem 7: 09/28/24 09:14 09/28/24 09:14 Labs: Abnormal Lab Results - Last 24 Hours (Table) 09/27/24 09/27/24 09/27/24 Range/Units 05:30 05:30 12:10 Retic Count 2.30 H (0.10-1.80) % POC Glucose (mg/dL) 173 H (70-110) mg/dL Iron 12 L (65-175) UG/DL TIBC 143 L (228-460) UG/DL % Saturation 8.39 L (15.00-50.00) Transferrin 102.0 L (204.0-354.0) mg/dL Ferritin 1222.0 H (22.0-322.0) ng/mL 09/27/24 09/27/24 09/28/24 Range/Units 17:31 20:03 07:01 Retic Count (0.10-1.80) % POC Glucose (mg/dL) 178 H 174 H 132 H (70-110) mg/dL Iron (65-175) UG/DL TIBC (228-460) UG/DL % Saturation (15.00-50.00) Transferrin (204.0-354.0) mg/dL Ferritin (22.0-322.0) ng/mL Microbiology - Last 24 Hours (Table) 09/25/24 10:40 Gram Stain - Preliminary Ascites Fluid Body Fluid Culture - Preliminary 09/25/24 10:40 Anaerobic Culture - Preliminary Ascites Fluid 09/23/24 18:17 Blood Culture - Preliminary Blood
[2024-09-28] MEDS: SENNOSIDES-DOCUSATE SODIUM 1 EACH TAB PO SCH (19:43)
[2024-09-28 20:11] LABS: Glucose,Whole Blood 134 mg/dL (70-110)
[2024-09-29 07:10] LABS: Glucose,Whole Blood 142 mg/dL (70-110)
[2024-09-29 08:09] LABS: HCT 36.7 % (39.6-50.0); HGB 11.1 g/dL (13.0-17.0); MCH 27.3 pg (27.0-32.0); MCHC 30.2 g/dL (32.0-37.0); MCV 90.2 FL (80.0-97.0); Mean Platelet Volume 12.2 FL (9.5-12.2); NRBC Per 100 WBC 0 X 10*3/uL (0.00-0.01); Platelet Count 352 X 10*3/uL (140-440); RBC 4.07 X 10*6/uL (4.40-5.60); RDW 15.8 % (11.5-14.5); WBC 19.74 X 10*3/uL (4.50-10.00)
[2024-09-29 08:21] LABS: Albumin 2.5 g/dL (3.8-4.9); BUN/Creat Ratio 22.24 Ratio (12.00-20.00); Blood Urea Nitrogen 73.4 mg/dL (9.0-27.0); Calcium 8.8 mg/dL (8.7-10.3); Carbon Dioxide 19.7 mmol/L (21.6-31.8); Chloride 96 mmol/L (96-109); Glucose 120 mg/dL (70-110); Magnesium 2.6 mg/dL (1.5-2.4); Potassium 5.7 mmol/L (3.5-5.5); Sodium 131 mmol/L (135-145)
[2024-09-29] MEDS: ALBUMIN HUMAN 25% 50 ML in EMPTY BAG 1 BAG IVPB ONE ×2 (08:31)
--- NOTE | 2024-09-29 10:27 | XR ---
EXAMINATION TYPE: XR chest 1V portable DATE OF EXAM: 09/29/2024 10:07 AM COMPARISON: CT CLINICAL INDICATION: Male, 74 years old with history of dyspnea; [facility] TECHNIQUE: XR chest 1V portable Frontal view of the chest. FINDINGS: Lungs/Pleura: Right lower lung nodular-like opacity is compatible with vessels on CT 09/23/2024 .Ther e is no evidence of pleural effusion, focal consolidation, or pneumothorax. Pulmonary vascularity: Unremarkable. Heart/mediastinum: Cardiomediastinal silhouette is unremarkable. Musculoskeletal: No acute osseous pathology. Other findings: None IMPRESSION: Bilateral streaky atelectasis as seen on CT. [facility], , 09/29/2024 10:25 AM
[2024-09-29] MEDS: guaiFENesin-DM 600/30MG 1 EACH TAB.ER.12H PO SCH (10:34)
--- NOTE | 2024-09-29 11:51 | P.PN ---
Subjective Patient is seen in follow-up for acute kidney injury on chronic kidney disease. Renal function worsening with creatinine up to 3.3 today. Has been voiding. Urine output not being accurately measured. present at bedside. Vital signs are stable. General: No acute distress. HEENT: Head exam is unremarkable. On nasal cannula. LUNGS: No audible rhonchi or wheezes. HEART: Rate and Rhythm are regular. ABDOMEN: Distention noted. EXTREMITITES: No edema. Objective - Vital Signs Vital signs: Vital Signs Temp 98.3 F 09/29/24 08:00 Pulse 75 09/29/24 08:00 Resp 20 09/29/24 08:00 BP 122/77 09/29/24 08:00 Pulse Ox 93 L 09/29/24 08:00 FiO2 Intake & Output 09/28/24 09/29/24 09/29/24 18:59 06:59 18:59 Intake Total 240 540 Output Total 1400 Balance -1160 540 Weight 102.421 kg Intake: Oral 240 540 Output: Urine 1400 Other: Voiding Method Urinal Urinal # Voids 1 - Labs CBC & Chem 7: 09/29/24 02:55 09/29/24 02:55 Labs: Abnormal Lab Results - Last 24 Hours (Table) 09/28/24 09/28/24 09/28/24 Range/Units 11:58 17:07 20:09 WBC (4.50-10.00) X 10*3/uL RBC (4.40-5.60) X 10*6/uL Hgb (13.0-17.0) g/dL Hct (39.6-50.0) % MCHC (32.0-37.0) g/dL RDW (11.5-14.5) % Sodium (135-145) mmol/L Potassium (3.5-5.5) mmol/L Carbon Dioxide (21.6-31.8) mmol/L Anion Gap (4.00-12.00) mmol/L BUN (9.0-27.0) mg/dL Creatinine (0.6-1.5) mg/dL Est GFR (CKD-EPI) (>=60) BUN/Creatinine Ratio (12.00-20.00) Ratio Glucose (70-110) mg/dL POC Glucose (mg/dL) 156 H 133 H 134 H (70-110) mg/dL Magnesium (1.5-2.4) mg/dL Albumin (3.8-4.9) g/dL 09/29/24 09/29/24 09/29/24 Range/Units 02:55 02:55 07:09 WBC 19.74 H (4.50-10.00) X 10*3/uL RBC 4.07 L (4.40-5.60) X 10*6/uL Hgb 11.1 L (13.0-17.0) g/dL Hct 36.7 L (39.6-50.0) % MCHC 30.2 L (32.0-37.0) g/dL RDW 15.8 H (11.5-14.5) % Sodium 131 L (135-145) mmol/L Potassium 5.7 H (3.5-5.5) mmol/L Carbon Dioxide 19.7 L (21.6-31.8) mmol/L Anion Gap 15.30 H (4.00-12.00) mmol/L BUN 73.4 H (9.0-27.0) mg/dL Creatinine 3.3 H (0.6-1.5) mg/dL Est GFR (CKD-EPI) 19 L (>=60) BUN/Creatinine Ratio 22.24 H (12.00-20.00) Ratio Glucose 120 H (70-110) mg/dL POC Glucose (mg/dL) 142 H (70-110) mg/dL Magnesium 2.6 H (1.5-2.4) mg/dL Albumin 2.5 L (3.8-4.9) g/dL Microbiology - Last 24 Hours (Table) 09/25/24 10:40 Gram Stain - Final Ascites Fluid Body Fluid Culture - Final 09/23/24 18:17 Blood Culture - Final Blood Assessment and Plan Plan: Assessment: 1. Acute kidney injury secondary to ATN. Also concern for hepatorenal syndrome. Creatinine 3.3 today. Also received IV contrast on September 23, 2024. No hydronephrosis noted on imaging. 2. Liver cirrhosis with ascites status post paracentesis September 25, 2024 with 2.5 L drained. 3. Liver masses with concern for malignancy. Oncology following. 4. Anemia. Iron deficiency noted. 5. Hyponatremia, hypervolemic. Status post IV fluids. Urine sodium less than 20 and urine osmolality 405. 6. Chronic kidney disease stage IIIb with baseline creatinine near 1.5 secondary to nephrosclerosis versus diabetic kidney disease. 7. Diabetes mellitus. 8. Hyperkalemia secondary to acute kidney injury and acidosis. Plan: Hold Lasix. Maintain IV iron. 25 g IV albumin x 1 dose today. 10 g Lokelma once today. 2 amp sodium bicarb IV push, 10 units IV regular insulin with amp of D50 now. Repeat potassium level this evening. Strict I's and O's. Insert Rocha catheter Will give IV albumin if undergoes another paracentesis. Avoid nephrotoxins. Continue to monitor renal function and urine output. Unable to get liver biopsy done. Case discussed with oncology. Concern for pancreatic cancer versus cholangiocar cinoma with poor prognosis. Case also discussed with patient's . She will discuss with oncology as well. Discussed need for renal replacement therapy in the near future if no improvement in renal function and urine output. She understands. Prognosis guarded.
[2024-09-29] MEDS: LACTULOSE 20 GM/30 ML CUP PO SCH (13:27)
[2024-09-29] MEDS: SODIUM ZIRCONIUM CYCLOSILICATE 10 GM PACKET PO ONE (13:27)
--- NOTE | 2024-09-29 13:34 | US ---
EXAMINATION TYPE: US abdomen limited DATE OF EXAM: 09/29/2024 1:19 PM SITE: [facility] CLINICAL INDICATION: Male, 74 years old with history of assess for ascites; , [facility] COMPARISON: 09/25/2024.. TECHNIQUE: Limited grayscale imaging 4 quadrants for ascites. FINDINGS: Small/trace ascites with abdomen free fluid seen in the abdomen. IMPRESSION: Small/trace ascites within the abdomen. [facility], , 09/29/2024 1:32 PM
[2024-09-29 13:57] LABS: Glucose,Whole Blood 135 mg/dL (70-110)
[2024-09-29] MEDS: SODIUM BICARB 8.4% 50 ML SYR (1 MEQ/ML) IV STA (14:05)
[2024-09-29] MEDS: INSULIN REGULAR 100 UNIT/ML VIAL (IV) IV ONE (14:05)
[2024-09-29] MEDS: DEXTROSE 50% SYRINGE 50 ML IVP STA (14:05)
[2024-09-29] MEDS: MORPHINE SULFATE 2 MG/ML SYRINGE IVP PRN (14:06)
[2024-09-29] MEDS: ALBUMIN HUMAN 25% 50 ML in EMPTY BAG 1 BAG IVPB SCH (14:22)
[2024-09-29 15:11] LABS: Influenza A Not Detected (Not Detectd); Influenza B Not Detected (Not Detectd); RSV Not Detected (Not Detectd)
--- NOTE | 2024-09-29 15:20 | XR ---
EXAMINATION TYPE: XR abdomen 1V DATE OF EXAM: 09/29/2024 2:57 PM COMPARISON: 08/18/2022. CLINICAL INDICATION: Male, 74 years old with history of distension; [facility] TECHNIQUE: One radiographic view of the abdomen was obtained. FINDINGS: Distended gastric lumen with ingested contents. The bowel gas pattern is nonspecific withou t dilated loops of small or large bowel. . Fecal material and gas are demonstrated throughout the col on and rectum. There is no evidence for organomegaly or pneumoperitoneum. No acute osseous process. No abnormal calcifications are present. Upper quadrant course significance. IMPRESSION: Gaseous distention of the stomach, otherwise Nonspecific bowel gas pattern without radiographic evide nce for acute process. [facility], , 09/29/2024 3:18 PM
--- NOTE | 2024-09-29 15:50 | P.PN ---
Subjective Progress Note Date: 09/29/24 Patient reporting some improvement in symptoms today. Still experiencing nausea. Reports pain has been controlled on pain meds, but not able to tolerate oral pain meds at this time. Unfortunately kidney function is worsening. Creatinine 3.3, GFR 19. Pt still having UO. Plan to place munson to closely monitor output. Objective - Vital Signs Vital signs: Vital Signs Temp 98.3 F 09/29/24 08:00 Pulse 75 09/29/24 08:00 Resp 20 09/29/24 08:00 BP 122/77 09/29/24 08:00 Pulse Ox 93 L 09/29/24 08:00 FiO2 Intake & Output 09/28/24 09/29/24 09/29/24 18:59 06:59 18:59 Intake Total 240 540 Output Total 1400 Balance -1160 540 Weight 102.421 kg Intake: Oral 240 540 Output: Urine 1400 Other: Voiding Method Urinal Urinal Urinal # Voids 1 - Constitutional General appearance: Present: average body habitus, no acute distress - EENT Eyes: Present: anicteric sclerae, EOMI ENT: Present: hearing grossly normal - Respiratory Details: breathing is even and unlabored - Cardiovascular Details: skin warm and dry - Gastrointestinal General gastrointestinal: Present: distended. Absent: tenderness - Integumentary Integumentary: Absent: cyanotic - Musculoskeletal Musculoskeletal: Present: generalized weakness - Psychiatric Psychiatric: Present: A&O x's 3 - Labs CBC & Chem 7: 09/29/24 02:55 09/29/24 02:55 Labs: Abnormal Lab Results - Last 24 Hours (Table) 09/28/24 09/28/24 09/29/24 Range/Units 17:07 20:09 02:55 WBC (4.50-10.00) X 10*3/uL RBC (4.40-5.60) X 10*6/uL Hgb (13.0-17.0) g/dL Hct (39.6-50.0) % MCHC (32.0-37.0) g/dL RDW (11.5-14.5) % Sodium 131 L (135-145) mmol/L Potassium 5.7 H (3.5-5.5) mmol/L Carbon Dioxide 19.7 L (21.6-31.8) mmol/L Anion Gap 15.30 H (4.00-12.00) mmol/L BUN 73.4 H (9.0-27.0) mg/dL Creatinine 3.3 H (0.6-1.5) mg/dL Est GFR (CKD-EPI) 19 L (>=60) BUN/Creatinine Ratio 22.24 H (12.00-20.00) Ratio Glucose 120 H (70-110) mg/dL POC Glucose (mg/dL) 133 H 134 H (70-110) mg/dL Magnesium 2.6 H (1.5-2.4) mg/dL Albumin 2.5 L (3.8-4.9) g/dL 09/29/24 09/29/24 Range/Units 02:55 07:09 WBC 19.74 H (4.50-10.00) X 10*3/uL RBC 4.07 L (4.40-5.60) X 10*6/uL Hgb 11.1 L (13.0-17.0) g/dL Hct 36.7 L (39.6-50.0) % MCHC 30.2 L (32.0-37.0) g/dL RDW 15.8 H (11.5-14.5) % Sodium (135-145) mmol/L Potassium (3.5-5.5) mmol/L Carbon Dioxide (21.6-31.8) mmol/L Anion Gap (4.00-12.00) mmol/L BUN (9.0-27.0) mg/dL Creatinine (0.6-1.5) mg/dL Est GFR (CKD-EPI) (>=60) BUN/Creatinine Ratio (12.00-20.00) Ratio Glucose (70-110) mg/dL POC Glucose (mg/dL) 142 H (70-110) mg/dL Magnesium (1.5-2.4) mg/dL Albumin (3.8-4.9) g/dL Microbiology - Last 24 Hours (Table) 09/25/24 10:40 Gram Stain - Final Ascites Fluid Body Fluid Culture - Final 09/23/24 18:17 Blood Culture - Final Blood Assessment and Plan (1) Abdominal pain Current Visit: Yes Status: Acute Code(s): R10.9 - UNSPECIFIED ABDOMINAL PAIN SNOMED Code(s): 15968724 (2) Ascites Current Visit: Yes Status: Acute Priority: High Code(s): R18.8 - OTHER ASCITES SNOMED Code(s): 690498416 (3) Chronic hiccups Current Visit: Yes Status: Acute Priority: High Code(s): R06.6 - HICCOUGH SNOMED Code(s): 029730586 (4) Hepatic cirrhosis Current Visit: Yes Status: Acute Code(s): K74.60 - UNSPECIFIED CIRRHOSIS OF LIVER SNOMED Code(s): 48779510 (5) Liver masses Current Visit: Yes Status: Acute Priority: High Code(s): R16.0 - HEPATOMEGALY, NOT ELSEWHERE CLASSIFIED SNOMED Code(s): 583352316 (6) Nausea and vomiting Current Visit: Yes Status: Acute Priority: High Code(s): R11.2 - NAUSEA WITH VOMITING, UNSPECIFIED SNOMED Code(s): 76516393 (7) Unintentional weight loss Current Visit: Yes Status: Acute Priority: High Code(s): R63.4 - ABNORMAL WEIGHT LOSS SNOMED Code(s): 459028636 Plan: Unintentional weight loss, liver lesions and LAD on imaging, intractable nausea and vomiting. -Reviewed with patient and concerning findings on imaging. They are agreeable to additional work up - IR consulted for liver biopsy and paracentesis. IR felt liver biopsy not obtainable. S/p paracentesis with 2.5L removed, cytology requested -Ca19.9 elevated at 2079, CEA and AFP WNL -Further recs pending cytology -PET CT will be scheduled outpt, with subsequent clinic f/u Had detailed discussion with pt and spouse regarding concerns for malignancy, pancreatic vs cholangiocarcinoma, as well as POC. All questions and concerns addressed N,V -Antiemetics adjusted -N/V improved but persisting -Encouraged increasing oral intake as tolerated Weakness -PT consulted Unfortunately, kidney function has started to worsen. Discussed case with nephrology, if kidney function doesn't show improvement, would need to consider HD. Concern for heptorenal syndrome/ATN. However, at this time we are still waiting on cytology, but concern for metastatic pancreatic cancer vs cholangiocarcinoma. Discussed with pt and family that we will continue to monitor labs and course of hospitalization. Goals of care discussion/comfort care measures were also discussed. All questions and concerns were addressed. We will continue to follow closely
[2024-09-29 17:31] LABS: Glucose,Whole Blood 143 mg/dL (70-110)
--- NOTE | 2024-09-29 18:10 | P.PN ---
Subjective Progress Note Date: 09/29/24 Patient is a 74 year old male with Coronary artery disease s/p stent placement, diabetes mellitus, hyperlipidemia, hypertension, tobacco dependence presented to the ED with abdominal pain. Patient reports helping his friend with some patio work 2 weeks ago when he started having hot flashes. He then had abdominal pain associated with vomiting. 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 He mention he lost 20 pounds in the last week and a half. He mentions that he usually drinks a lot of water but lately has only had a glass of water a day and has had decreased appetite. He also has soft stools, but denies diarrhea. Additionally, he reports having a low stream of urine that he attributes to his BPH.He mentions following up with center machine set up operator and kitchen bath designer in the past but hasn't seen them in quite some time lately. He did have an MRI of the abdomen a few years ago at [facility] in [place]. He has also had some surgery for twisted bowel years ago. He is a current everyday smoker, smoking since he was 14. He was drinking alcohol in the past but quit when he was 49. Moreover he reports having a headache and eye pain, but mentions that its similar to the migraines he used to have in the past. Abdomen pelvis CT done in 2022 shows no evidence for acute process, hepatic cirrhosis evidence of portal hypertension splenomegaly, scattered hepatic hypodense lesions. Appearance of the attending indicates a 500, prostatomegaly, chronic diverticulosis, bilateral fat-containing inguinal hernias. Denies fever, chills, shortness of breath, cough, chest pain, palpitations, hematuria, dysuria, hematochezia, melena, slurred speech, numbness, tingling, lightheadedness, blurred vision, double vision. ED documentation reviewed. In t he ED patient was treated with Dilaudid, Zofran, lactated Ringer. 09/24/24: Patient is seen and examined at bedside today. Last night he reported 10/10 pain, home med Percocet was resumed and he wished to be made No code. He notes slight improvement in pain today. 09/25/24: Patient evaluated at bedside today. He reports improvement in the epigastric pain. Patient underwent paracentesis today and 2.5 L was removed. 09/26/24: Patient seen and examined at bedside today. He notes some improvement in abdominal pain and hiccups. 09/27/24: Pt still c/o abd discomfort. Also c/o of some LLE swelling and pain. US pending. 09/28/24: Ultrasound with no DVT present, paracentesis planned with cytology. No complaints. 09/29/24: Patient was seen examined bedside. Continues on 4 L nasal cannula. Patient's daughter and girlfriend at bedside for goals of care discussion. After discussion patient agreed to meet with hospice for informational session, and would like to proceed with hospice care. Review of systems: Pertinent positives and negatives as discussed in HPI, a complete review of systems was performed and all other systems are negative. Vitals: Signs Reviewed PHYSICAL EXAMINATION: General: nontoxic, no distress, appears at stated age Cardiovascular: S1 S2 reg, no murmur Lungs: CTA bilateral, no rhonchi, no rales, no accessory muscle use Abdominal: non-tender to palpation, distended Extremities: No cyanosis, clubbing, or pedal edema. Neuro: Alert, Oriented, Gross neurological examination did not reveal any focal deficits. Psych: well appearing, appropriate affect Today significant findings: LabsWBC 19.7, hemoglobin 11.1, sodium 131, potassium 5.7, bicarb 19.7, BUN 73 .4, creatinine 3.3, glucose 142, viral respiratory panel negative Abdominal x-ray findings of gaseous distention of stomach, otherwise nonspecific bowel gas pattern without radiographic evidence of acute process, fecal matter and gas redemonstrated throughout the colon and rectum. Chest x-ray bilateral streaky atelectasis Assessment/Plan: Patient is a 74 year old male with Coronary artery disease s/p stent placement, diabetes mellitus, hyperlipidemia, hypertension, tobacco dependence presented to the ED with abdominal pain. #. Sepsis due to possible SBP #. Ascites with history of Liver cirrhosis #. Possible Hepatic neoplasm with metastasis #. Possible upper GI bleed #. Leukocytosis, secondary to above, improving #. S/p paracentesis, 2.5 L removed Abdomen/pelvis CT shows multiple hypodense masses of the caudate lobe of the liver with lobular masses scattered within the gastrohepatic ligament, omentum and upper mesentery, Findings suspicious for hepatic neoplasm with marked metastatic disease. Stable changes of cirrhotic liver. Interval development of moderate ascites. Stable osseous lesions involving L3 and L5 and S1, possibly metastatic disease Total bilirubin 1.7, Conjugated bili 0, Unconjugated bili 0.9, AFP <3, CEA antigen < 2, CA 19-9 antigen 2079, , Acute hepatitis panel is negative Exudative ascitic fluid- appearance is grossly bloody, WBC 2131, PMN 69%, protein 3460, albumin 2.06, SAAG 1.1 Ascitic fluid PMN >1000, meets criteria for SBP, but difficult to say as ascitic fluid is grossly blood in appearance. Continue Ceftriaxone 2 gm IVPB Q24HR empirically Continue Protonix 40 mg IV BID Resume home Percocet Monitor CBC and BMP Oncology is following GI has signed off, recommended no endoscopic evaluation at this time Plan for hospice #. Intractable hiccups Likely secondary to irritation from LAD in gastrohepatic area Continue Chlorpromazine 25 mg PO Q6HR PRN #. AMINATA on CKD, worsening #. Possible Hepatorenal syndrome vs contrast induced vs medication induced #. Hypervolemic Hyponatremia, worsening Initial UA shows specific gravity 1.036, 1+ protein, 4 hyaline casts, rare mucus Aldactone discontinued IV fluids discontinued Urine osmolality 405 Monitor BMP IV albumin ordered Continue Lasix 40 mg p.o. daily Nephrology is following #. Normocytic anemia likely secondary to blood loss in paracentesis, grossly bloody ascitic fluid Obtain iron panel, retic count, LDH Transfuse for Hb<7 #. Type II Diabetes mellitus A1c 6.7 Insulin sliding scale and ACHS blood glucose monitoring Monitor for hypoglycemia Hold home med metformin #. Nausea and vomiting Continue Zofran 4 mg IVP Q6HR PRN #. Type B Lactic acidosis, improved Received 1L LR bolus #. Prostatic hypertrophy #. History of BPH Abdomen pelvic CT shows Moderate prostatic hypertrophy total PSA 7.3, free PSA 1.63 Continue home med Tadalafil 10 mg PO daily Monitor urine output #. Hyperkalemia, resolved Chronic medical conditions: #. Hypertension #. Hyperlipidemia #. CAD S/p multiple stents #. GERD Continue home meds amlodipine 10 mg p.o. daily, atorvastatin 40 mg p.o. daily, Imdur 30 mg p.o. daily, losartan 50 mg p.o. daily, metoprolol 50 mg p.o. daily Plavix held for possible upper GI bleed, Farxiga held for renal function p.o. F: P.o. E: Replete as required N: Consistent carbohydrate diet DVT prophylaxis: Not indicated GI prophylaxis: Pantoprazole 40 mg IV BID Code status: NO CODE Anticipated discharge place: [facility] Anticipated discharge time: Tomorrow Edi Diaz MD Internal Medicine Resident, PGY1 Dictation was produced using [employer] dictation software. please excuse any gra mmatical, word or spelling errors. I saw and evaluated the patient during the layton and critical portions of this encounter, and discussed the case in detail with the resident author of this note, I agree with the Assessment and Plan, and my changes, if any, are highlighted in blue. Objective - Vital Signs Vital signs: Vital Signs Temp 97.7 F 09/29/24 01:46 Pulse 84 09/29/24 01:46 Resp 16 09/29/24 01:46 BP 105/73 09/29/24 01:46 Pulse Ox 92 L 09/29/24 01:46 FiO2 Intake & Output 09/28/24 09/29/24 09/29/24 18:59 06:59 18:59 Intake Total 240 540 Output Total 1400 Balance -1160 540 Weight 102.421 kg Intake: Oral 240 540 Output: Urine 1400 Other: Voiding Method Urinal Urinal # Voids 1 - Labs CBC & Chem 7: 09/29/24 02:55 09/29/24 17:39 Labs: Abnormal Lab Results - Last 24 Hours (Table) 09/28/24 09/28/24 09/28/24 Range/Units 09:14 09:14 11:58 WBC 18.20 H (4.50-10.00) 10*3/uL RBC 3.85 L (4.40-5.60) 10*6/uL Hgb 10.8 L (13.0-17.0) g/dL Hct 33.9 L (39.6-50.0) % MCHC 31.9 L (32.0-37.0) g/dL RDW 15.6 H (11.5-14.5) % Sodium 129 L (137-145) mmol/L Chloride 97 L (98-107) mmol/L Carbon Dioxide 21 L (22-30) mmol/L BUN 62 H (9-20) mg/dL Creatinine 2.54 H (0.66-1.25) mg/dL Glucose 140 H (74-99) mg/dL POC Glucose (mg/dL) 156 H (70-110) mg/dL 09/28/24 09/28/24 09/29/24 Range/Units 17:07 20:09 07:09 WBC (4.50-10.00) 10*3/uL RBC (4.40-5.60) 10*6/uL Hgb (13.0-17.0) g/dL Hct (39.6-50.0) % MCHC (32.0-37.0) g/dL RDW (11.5-14.5) % Sodium (137-145) mmol/L Chloride (98-107) mmol/L Carbon Dioxide (22-30) mmol/L BUN (9-20) mg/dL Creatinine (0.66-1.25) mg/dL Glucose (74-99) mg/dL POC Glucose (mg/dL) 133 H 134 H 142 H (70-110) mg/dL Microbiology - Last 24 Hours (Table) 09/25/24 10:40 Gram Stain - Final Ascites Fluid Body Fluid Culture - Final 09/23/24 18:17 Blood Culture - Final Blood
[2024-09-29] MEDS ORDERED: ATROPINE OPHTH SOLN 1% 5ML BTL SUBLINGUAL PRN (18:49)
[2024-09-29] MEDS ORDERED: LORazepam 1 MG/0.5 ML VIAL IV PRN (18:49)
[2024-09-29 20:08] LABS: Glucose,Whole Blood 139 mg/dL (70-110)
[2024-09-29] MEDS: ONDANSETRON 4 MG/2 ML VIAL IVP PRN (20:10)
[2024-09-30] MEDS: SCOPOLAMINE 1 MG/72 HR PATCH TRANSDERM SCH (00:49)
[2024-09-30 07:28] VITALS: BP 112/77; PULSE 75; RESP 20; TEMP 97.7
[2024-09-30 07:52] LABS: Glucose,Whole Blood 126 mg/dL (70-110)
[2024-09-30] MEDS: MORPHINE SULFATE 100 MG in SODIUM CHLORIDE 0.9% 90 ML IV SCH (07:53)
[2024-09-30 08:22] LABS: BUN/Creat Ratio 22.31 Ratio (12.00-20.00); Blood Urea Nitrogen 93.7 mg/dL (9.0-27.0); Chloride 97 mmol/L (96-109); Glucose 133 mg/dL (70-110); Magnesium 2.9 mg/dL (1.5-2.4); Potassium 5.9 mmol/L (3.5-5.5); Sodium 134 mmol/L (135-145)
[2024-09-30 08:23] LABS: ALT 7 U/L (10-49); AST 25 U/L (14-35); Albumin 2.6 g/dL (3.8-4.9); Alkaline Phosphatase 107 U/L (41-126); Calcium 8.7 mg/dL (8.7-10.3); Carbon Dioxide 18.3 mmol/L (21.6-31.8); Globulin 2.6 g/dL (1.6-3.3); Total Bilirubin 0.5 mg/dL (0.3-1.2); Total Protein 5.2 g/dL (6.2-8.2)
--- NOTE | 2024-09-30 11:58 | P.DS ---
Providers Date of admission: 09/23/24 16:09 Expected date of discharge: 09/30/24 Attending physician: Miguel Ángel Greenwood Consults: 09/23/24 15:38 Consult Physician Routine Consulting Provider: Karen Rodriguez Consult Reason/Comments: Metastatic liver lesions Do you want consulting provider notified?: Yes 09/23/24 17:35 Consult Physician Routine Consulting Provider: Adilia Jorgensen Consult Reason/Comments: possible upper GI bleed, cirrhosis Do you want consulting provider notified?: Yes 09/25/24 10:17 Consult Physician Routine Consulting Provider: Litzy Josue Consult Reason/Comments: worsening aminata and hyponatremia Do you want consulting provider notified?: Yes Primary care physician: [facility] Course: Discharge diagnoses; #. Sepsis due to possible SBP #. Ascites with history of Liver cirrhosis #. Possible Hepatic neoplasm with metastasis #. Possible upper GI bleed #. Leukocytosis, secondary to above, improving #. S/p paracentesis, 2.5 L removed #. Intractable hiccups #. AMINATA on CKD, worsening #. Possible Hepatorenal syndrome vs contrast induced vs medication induced #. Hypervolemic Hyponatremia, worsening #. Normocytic anemia #. Type II Diabetes mellitus #. Nausea and vomiting #. Type B Lactic acidosis #. Prostatic hypertrophy #. History of BPH #. Hyperkalemia #. Hypertension #. Hyperlipidemia #. CAD S/p multiple stents #. GERD Hospital course; Patient is a 74 year old male with Coronary artery disease s/p stent placement, diabetes mellitus, hyperlipidemia, hypertension, tobacco dependence presented to the ED with abdominal pain. Patient reports helping his friend with some patio work 2 weeks ago when he started having hot flashes. He then had abdominal pain associated with vomiting. 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 He mention he lost 20 pounds in the last week and a half. He mentions that he usually drinks a lot of water but lately has only had a glass of water a day and has had decreased appetite. He also has soft stools, but denies diarrhea. Additionally, he reports having a low stream of urine that he attributes to his BPH.He mentions following up with food and nutrition services supervisor and graphic pre press trades worker in the past but hasn't seen them in quite some time lately. He did have an MRI of the abdomen a few years ago at [facility] in [place]. He has also had some surgery for twisted bowel years ago. He is a current everyday smoker, smoking since he was 14. He was drinking alcohol in the past but quit when he was 49. Moreover he reports having a headache and eye pain, but mentions that its similar to the migraines he used to have in the past. Abdomen pelvis CT done in 2022 shows no evidence for acute process, hepatic cirrhosis evidence of portal hypertension splenomegaly, scattered hepatic hypodense lesions. Appearance of the attending indicates a 500, prostatomegaly, chronic diverticulosis, bilateral fat-containing inguinal hernias. During hospital stay patient was treated for sepsis possibly due to SBP and ascites with possible hepatic neoplasm with metastasis. During his stay he had paracentesis with 2.5 L removed. Exudative ascitic fluid- appearance is grossly bloody, WBC 2131, PMN 69%, protein 3460, albumin 2.06, SAAG 1.1, Ascitic fluid PMN >1000, meets criteria for SBP, but was difficult to say as ascitic fluid is grossly blood in appearance. Any continue to receive ceftriaxone. He was seen by GI, hematology oncology and nephrology. During his stay he also had continued worsening kidney function and would potentially need dialysis. Family meeting was held and decision was made to proceed with hospice. Patient will discharged to hospice, prognosis guarded. Continue medications for comfort care measures. Vitals: Signs Reviewed PHYSICAL EXAMINATION: General: nontoxic, no distress, appears at stated age Cardiovascular: S1 S2 reg, no murmur Lungs: CTA bilateral, no rhonchi, no rales, no accessory muscle use Abdominal: non-tender to palpation, distended Extremities: No cyanosis, clubbing, or pedal edema. Neuro: Alert, Oriented, Gross neurological examination did not reveal any focal deficits. Psych: well appearing, appropriate affect Dictation was produced using [employer] dictation software. please excuse any grammatical, word or spelling errors. Patient was discharged at 912 on 09/30/24. This discharge summary took >30 minutes to complete. I have seen and evaluated the patient today. I reviewed the resident's note and agree. Changes are highlighted in blue font. Patient Condition at Discharge: Poor Plan - Discharge Summary Discharge Rx Participant: No New Discharge Prescriptions: New polyethylene glycoL 3350 [Miralax] 17 gm PO DAILY packet guaiFENesin-DM 600/30MG [Mucinex Dm] 1 each PO Q12HR tab Sennosides-Docusate Sodium [Senokot-S] 2 each PO BID tab Lactulose [Cephulac] 20 gm PO QID #0 ml Scopolamine 1 mg/72 Hr Patch [TransDerm Scop] 1 patch TRANSDERM Q72H patch Continue Furosemide [Lasix] 80 mg PO DAILY Metoprolol Succinate [Toprol XL] 50 mg PO DAILY Pantoprazole [Protonix] 40 mg PO DAILY oxyCODONE-APAP 10-325MG [Percocet 10-325 mg] 1 tab PO Q4H Discontinued Nitroglycerin Sl Tabs [Nitrostat] 0.4 mg SL Q5M PRN PRN Reason: Chest Pain Atorvastatin [Lipitor] 40 mg PO DAILY amLODIPine [Norvasc] 10 mg PO DAILY Aspirin EC [Ecotrin Low Dose] 81 mg PO DAILY Dapagliflozin Propanediol [Farxiga] 10 mg PO DAILY Ergocalciferol (Vitamin D2) [Drisdol (GEQ) 1,250 MCG (50,000 IU)] 1,250 mcg PO TH Isosorbide Mononitrate ER [Imdur] 30 mg PO DAILY metFORMIN HCL ER [Glucophage XR] 500 mg PO DAILY Losartan [Cozaar] 50 mg PO DAILY Clopidogrel [Plavix] 75 mg PO DAILY Spironolactone [Aldactone] 25 mg PO DAILY Discharge Medication List Furosemide [Lasix] 80 mg PO DAILY 08/16/22 [History] Metoprolol Succinate [Toprol XL] 50 mg PO DAILY 08/16/22 [History] Pantoprazole [Protonix] 40 mg PO DAILY 08/16/22 [History] oxyCODONE-APAP 10-325MG [Percocet 10-325 mg] 1 tab PO Q4H 08/16/22 [History] Lactulose [Cephulac] 20 gm PO QID #0 ml 09/30/24 [Rx] Scopolamine 1 mg/72 Hr Patch [TransDerm Scop] 1 patch TRANSDERM Q72H patch 09/30/24 [Rx] Sennosides-Docusate Sodium [Senokot-S] 2 each PO BID tab 09/30/24 [Rx] guaiFENesin-DM 600/30MG [Mucinex Dm] 1 each PO Q12HR tab 09/30/24 [Rx] polyethylene glycoL 3350 [Miralax] 17 gm PO DAILY packet 09/30/24 [Rx] Follow up Appointment(s)/Referral(s): [facility] [REFERRING] - 1 Week Kelly Mays MD [Primary Care Provider] - 1-2 days Discharge Disposition: [facility]CH [facility]
--- NOTE | 2024-10-01 22:43 | CDI ---
Documentation Clarification Form Date: 10/01/2024 10:07:47 PM From: Kindra Rodriguez Phone: [phone] Admit Date: 09/23/2024 04:09:00 PM Patient Name: Darryl Hernández Visit Number: [id number] Discharge Date: 09/30/2024 11:36:00 AM ATTENTION: The Clinical Documentation Specialists (CDI) and [facility] Coding Staff appreciate your assistance in clarifying documentation. Please respond to the clarification below the line at the bottom and electronically sign. The CDI & [facility] Coding staff will review the response and follow-up if needed. Please note: Queries are made part of the Legal Health Record. If you have any questions, please contact the author of this message via ITS. [facility] Greenwood Sepsis due to spontaneous bacterial peritonitis is documented in the Medicine H/P and subsequent progress notes which may lack sufficient clinical evidence/support in the medical record. Additional clarification is requested. History/Risk Factors: Coronary Artery Disease (CAD), Diabetes Mellitus, Hypertension, Clinical Indicators: 74-year-old male present with abdominal pain with vomiting. Denies fever, chills, shortness of breath, cough 09/23 CT Abd/Pelvis: No significant abnormality seen. 09/23 VS on admission: (12:01) 144/83 86 20 97 % RA 09/23 Labs: WBC 16.47 Neutrophils 12.87, BUN 56, Cr 1.83, lactic acid 5.0 09/25 Abdomen US: Moderate ascites 09/25 Paracentesis: Medicine progress note: "paracentesis with 2.5 L removed. Exudative ascitic fluid- appearance is grossly bloody, WBC 2131, PMN 69%, protein 3460, albumin 2.06, SAAG 1.1, Ascitic fluid PMN >1000, meets criteria for SBP, but was difficult to say as ascitic fluid is grossly blood in appearance." grossly blood in appearance. Treatment: Rocephin 2 GM IVPB Q 24 HRS 09/23-09/29 After work up and study, please clarify which diagnosis is most appropriate? [ ] Sepsis due to spontaneous bacterial peritonitis ruled out [ x ] Sepsis due to spontaneous bacterial peritonitis treated prophylactically [ ] Sepsis due to spontaneous bacterial peritonitis is a valid diagnosis as evidence by the following: (Please add rationale): [ ] Non-Infectious SIRS due to (please specify) [ ] Non-infectious SIRS due to with organ dysfunction as evidenced by [list organ dysfunction] [ ] Other, please specify [ ] Unable to determine (Template Last Reviewed: April 2023) MTDD
== END 2024-09-30 11:36 | disposition hospice, inpatient (51) | DRG 441 ==
LOC: EC 11:53 → 5NMEDONC 16:09
PROVIDERS: ADMIT Student in an Organized Health Care Education/Training Program; ATTEND Student in an Organized Health Care Education/Training Program
PROC: 0W9G3ZZ Drainage of Peritoneal Cavity, Percutaneous Approach (ICD-10-PCS; principal; 2024-09-25)
DX: K76.7 Hepatorenal syndrome (principal); N17.0 Acute kidney failure with tubular necrosis; E87.20 Acidosis, unspecified; E87.1 Hypo-osmolality and hyponatremia; Z51.5 Encounter for palliative care; E11.22 Type 2 diabetes mellitus with diabetic chronic kidney disease; D50.9 Iron deficiency anemia, unspecified; K76.6 Portal hypertension; N18.32 Chronic kidney disease, stage 3b; I12.9 Hypertensive chronic kidney disease with stage 1 through stage 4 chronic kidney disease, or unspecified chronic kidney disease; E66.9 Obesity, unspecified; F10.10 Alcohol abuse, uncomplicated; N17.9 Acute kidney failure, unspecified; K70.31 Alcoholic cirrhosis of liver with ascites; G51.0 Bell's palsy; R06.6 Hiccough; R16.1 Splenomegaly, not elsewhere classified; K57.30 Diverticulosis of large intestine without perforation or abscess without bleeding; K22.70 Barrett's esophagus without dysplasia; E78.5 Hyperlipidemia, unspecified; E87.5 Hyperkalemia; F17.210 Nicotine dependence, cigarettes, uncomplicated; E87.70 Fluid overload, unspecified; G89.29 Other chronic pain; I25.10 Atherosclerotic heart disease of native coronary artery without angina pectoris; K21.9 Gastro-esophageal reflux disease without esophagitis; K64.8 Other hemorrhoids; K40.20 Bilateral inguinal hernia, without obstruction or gangrene, not specified as recurrent; N40.0 Benign prostatic hyperplasia without lower urinary tract symptoms; Z79.02 Long term (current) use of antithrombotics/antiplatelets; Z79.82 Long term (current) use of aspirin; Z79.84 Long term (current) use of oral hypoglycemic drugs; Z79.899 Other long term (current) drug therapy; Z85.828 Personal history of other malignant neoplasm of skin; Z95.5 Presence of coronary angioplasty implant and graft; Z88.1 Allergy status to other antibiotic agents; Z90.49 Acquired absence of other specified parts of digestive tract
CPT/HCPCS: 36415; 49083; 71045; 74018; 74177; 76705; 80048; 80053; 80074; 81001; 82040; 82042; 82105; 82150; 82248; 82378; 82728; 83036; 83540; 83550; 83605; 83615; 83690; 83735; 83930; 83935; 84132; 84153; 84154; 84157; 84300; 85025; 85027; 85045; 85610; 85730; 86301; 87040; 87070; 87075; 87205; 87636; 88108; 88305; 88341; 88342; 89050; 93005; 94760; 96361; 96374; 96375; 99285